=== PATIENT | male | born 1990 | race Caucasian/White ===

== ENCOUNTER 2019-12-15 17:46 | Emergency (ER) | payer SELFPAY ==
[2019-12-15 18:09] VITALS: BP 136/96; PULSE 112; RESP 16; TEMP 37.5; O2SAT 97; BMI 28.7
--- NOTE | 2019-12-15 19:53 | ED.NAVMDI ---
HPI - Nausea/Vomiting/Diarrhea General Chief complaint: Nausea/Vomiting/Diarrhea Stated complaint: vomiting Time Seen by Provider: 12/15/19 19:49 Source: patient Mode of arrival: ambulatory Limitations: no limitations History of Present Illness HPI Narrative: 29 old male presents with nausea, vomiting, tremors, alcohol abuse, and heroin withdrawal. He states that he does not want detox at this time as he is unable to leave his job. he reports abdominal pain because he has been vomiting for several days, and feels as if he is withdrawing from alcohol at this time. He last used heroin just prior to arrival and has been using multiple bags per injection. he does not describe any chest pain or pressure, palpitations, abdominal distention, dysuria, hematuria, fevers, chills, suicidal ideation, homicidal ideation, and auditory visual hallucinations. MD elicited complaint: nausea and vomiting Pertinent past history: alcohol abuse Onset (ago): day(s) (3) Description of vomiting: watery and bilious Associated nausea: Yes Associated abdominal pain: No Severity: moderate Pain scale (0-10): 8 Related Data Previous Rx's Medication Instructions Recorded chlordiazepoxide HCl 25 mg PO Q8H PRN #7 cap 12/15/19 Allergies Allergy/AdvReac Type Severity Reaction Status Date / Time No Known Allergies Allergy Verified 12/15/19 18:13 [No Known Allergies*] Review of Systems Review of Systems: Constitutional: No Weight loss, No Fever, No Chills, No Night Sweats, No Fatigue, No Malaise ENT/Mouth: No Hearing loss, No Ear Pain, No Nasal Congestion, No Sinus Pain, No Hoarseness, No sore throat, No Rhinorrhea, No Swallowing Difficulty Eyes: No Eye Pain, No Swelling, No Redness, No Foreign Body, No Discharge, No Vision Changes Cardiovascular: No Chest Pain, No SOB, No Dyspnea on Exertion, No Orthopnea, No Edema, No Palpitations Respiratory: No Cough, No Sputum, No Wheezing, No Smoke Exposure, No Dyspnea Gastrointestinal: Positive Nausea, Positive Vomiting, positive Diarrhea, positive abdominal Pain, No Hematochezia, No Melena Genitourinary: no irregular bleeding, No Dysuria, No Urinary Frequency, No Hematuria, No Urinary Incontinence, No Urgency, No Flank Pain, No Urinary Flow Changes, No Hesitancy Musculoskeletal: No joint pain, No Myalgias, No Joint Swelling Skin: No Skin Lesions, No rash Neuro: No Weakness, No Numbness, No Paresthesias, No Loss of Consciousness, No Dizziness, No Headache Psych: No Anxiety/Panic, No Depression, No SI/HI/AH/VH, No Social Issues Heme/Lymph: No Bruising, No Bleeding,No Lymphadenopathy Endocrine: No Polyuria, No Polydipsia, No Temperature Intolerance Yes all other systems are reviewed and are negative Gastrointestinal: Gastrointestinal: Reports nausea PMFSH Past Medical History Attestation statement: The following information was validated with the patient. Medical History ETOH abuse Social History Social History Alcohol intake: current Alcohol intake frequency: 3 or more drinks per day Alcohol type: beer and hard liquor Smoking Status: Current some day smoker Use of substances other than those prescribed or required for medical reasons: No Substance Use Type: Heroin Substance Use Frequency: Weekly Last Used Substance: Days (ago) Advance Directives: No Advance Directives Information Provided: Yes Physical Exam Vital Signs: Vital Signs: Vital Signs Temp Pulse Resp BP Pulse Ox 12/15/19 21:47 97.4 F 76 18 109/61 97 12/15/19 18:09 99.5 F 112 H 16 136/96 H 97 Body Mass Index 28.7 Appearance: Alert. Oriented X3. Mild distress, tremorous hands. Head: Normal external exam. Normocephalic. Atraumatic. No Dorman signs noted. No raccoon eyes noted Eyes: PERRLA. EOMI. Conjunctiva and sclera normal. Eyelids normal. ENT: TM's Normal. Pharynx normal. Uvula midline. Moist mucous membranes. No trismus noted. No drooling noted. No muffled voice noted. Neck: Normal inspection. Neck supple. No adenopathy. Thyroid Normal. No meningeal signs. No neck mass noted. CVS: tachycardic, regular rhythm, Heart sound normal. No murmurs noted. Pulses equal to all extremities. Respiratory: No respiratory distress. Painless inspiration. Breath sounds normal. No wheezes/rales/rhonchi noted. Chest nontender. No accessory muscle usage noted or decreased air movement noted. Abdomen: Soft and nontender. Bowel sounds normal in all 4 quadrants. No distention noted. No organomegaly noted. No visible injury noted. Back: No CVA tenderness. Full range of motion noted. Skin: Skin warm and dry. Normal skin color. Normal skin turgor. No rashes/lesions/lacerations noted. Extremities: No lower extremity edema. Extremities exhibit normal range of motion. Extremities nontender. Neuro: cranial nerves 2-12 intact, no focal neural deficits, strength 5/5 to all extremities, No motor deficit. No sensory deficit. Reflexes normal. Course Course Course Narrative: plan is to treat for acute withdrawal symptoms with fluids, Ativan, Reglan and Benadryl. As patient is not interested in detox at this time and is not willing to stay for complete alcohol detox, we will provide supportive measures and have debt recovery officer speak with the patient so he can have information when he is ready for detox. Patient does agree with this plan. Reevaluation(s) Reevaluation #1: Patient's vital signs are stable, no longer tachycardic heart rate 76, no longer tremors to the hands. He will reach out to recovery program when he is ready. Patient will be discharged home. Patient verbalized understanding of and agrees to plan of care discharge home. He does understand that he is welcome to return at any time for full detox. Time: 21:16 MDM - Nausea/Vomiting/Diarrhea MDM Narrative Medical decision making narrative: Alcohol withdrawal, opioid withdrawal Differential Diagnosis Differential diagnosis: Likely gastroenteritis, drug-induced nausea and vomiting and dehydration Medical Records Attestation: I reviewed the patient's medical records. Lab Data Attestation: I reviewed the patient's lab results. Result diagrams: 12/15/19 20:22 12/15/19 20:22 Labs: Lab Results 12/15/19 12/15/19 12/15/19 Range/Units 20:22 20:22 20:22 WBC 4.2 L (4.8-10.8) X10*3/uL RBC 4.39 L (4.60-5.80) X10*6/uL Hgb 13.4 L (14.0-18.0) g/dl Hct 39.5 L (42-52) % MCV 90.0 (80-98) fL MCH 30.5 (27.0-33.0) pg MCHC 33.9 (31.0-36.0) g/dl RDW 13.2 (11.0-16.0) % Plt Count 178 (160-400) X10*3/uL MPV 9.1 L (9.4-12.4) fL Immature Gran % (Auto) 0.5 H (0.0-0.4) % Neut % (Auto) 57.7 (45-73) % Lymph % (Auto) 28.4 (20-40) % [place] % (Auto) 11.5 H (2-11) % Eos % (Auto) 1.4 (0-4) % Baso % (Auto) 0.5 (0-2) % Lymph # (Auto) 1.2 (1.2-4.9) X10*3/uL [place] # (Auto) 0.5 (0.1-1.2) X10*3/uL Eos # (Auto) 0.1 (0.0-0.4) X10*3/uL Baso # (Auto) 0.0 (0.0-0.2) X10*3/uL Abs Immat Gran (auto) 0.02 (0.00-0.03) X10*3/uL Absolute Neuts (auto) 2.4 (2.0-8.3) X10*3/uL Absolute Nucleated RBC 0.000 (0.0-0.012) X10*3/uL Nucleated RBC % (auto) 0.0 (0.0-0.2) /100WBC Sodium 136 (135-145) mmol/L Potassium 4.6 (3.3-5.1) mmol/l Chloride 97 (96-108) mmol/L Carbon Dioxide 32 H (22-29) mmol/L Anion Gap 12 (12-20) BUN 8 L (9-16) mg/dL Creatinine 0.82 (0.5-1.4) mg/dL Estim Creat Clear Calc 172.2 Estimated GFR > 60 Random Glucose 92 (60-115) mg/dL Calcium 8.8 (8.4-10.2) mg/dL Ethyl Alcohol < 10 mg/dL Discharge Plan Discharge Clinical Impression: Withdrawal from opioids, Alcohol abuse Patient Disposition: Home, Self-Care Instructions: Opioid Withdrawal (ED) Additional Instructions: please consider detox. Thank you for choosing this emergency department for evaluation. Please follow-up with primary care physician as needed. Return to the emergency department for any new, concerning, or worsening symptoms. Prescriptions: New chlordiazepoxide HCl 25 mg capsule 25 mg PO Q8H PRN (Reason: alcohol withdrawal) Qty: 7 RF: 0 Interventions: ED Discharge Assessment Last Done: 12/15/19 21:44 Discharge Date/Time: 12/15/19 22:00
[2019-12-15] MEDS: 0.9 % Sodium Chloride 1,000 ML 999 ML IVCONT (20:24)
[2019-12-15] MEDS: Metoclopramide HCl 10 MG/2 ML VIAL IVPUSH (20:25)
[2019-12-15 20:27] LABS: MANUAL DIFF FLAG NO
[2019-12-15] MEDS: Famotidine/PF 20 MG/2 ML VIAL IVPUSH (20:27)
[2019-12-15] MEDS: diphenhydrAMINE HCL 50 MG/ML VIAL IVPUSH (20:28)
[2019-12-15] MEDS: LORazepam 1 MG TABLET PO (20:29)
--- NOTE | 2019-12-15 20:31 | PC.NURSE ---
LAB AND IV LINED. MEDICATED PER APR. PT RESTING IN BED WATCHING A SHOW ON CELL PHONE. NO SOB OR CHEST PAIN. NO SIGN OF DISTRESS AT THIS TIME.
[2019-12-15 20:34] LABS: Basophils Percent Auto 0.5 % (0-2); Eosinophils Absolute Auto 0.1 X10*3/uL (0.0-0.4); Eosinophils Percent Auto 1.4 % (0-4); Hematocrit 39.5 % (42-52); Hemoglobin 13.4 g/dl (14.0-18.0); Imm Gran Abs Auto 0.02 X10*3/uL (0.00-0.03); Imm Gran Pct Auto 0.5 % (0.0-0.4); Lymphocytes Absolute Auto 1.2 X10*3/uL (1.2-4.9); Lymphocytes Percent Auto 28.4 % (20-40); Mean Corpuscular HGB Conc 33.9 g/dl (31.0-36.0); Mean Corpuscular Hemoglobin 30.5 pg (27.0-33.0); Mean Platelet Volume 9.1 fL (9.4-12.4); Monocytes Absolute Auto 0.5 X10*3/uL (0.1-1.2); Monocytes Percent Auto 11.5 % (2-11); Neutrophils Absolute Auto 2.4 X10*3/uL (2.0-8.3); Neutrophils Percent Auto 57.7 % (45-73); Platelet Count 178 X10*3/uL (160-400); Red Blood Count 4.39 X10*6/uL (4.60-5.80); Red Cell Distribution Width 13.2 % (11.0-16.0); White Blood Count 4.2 X10*3/uL (4.8-10.8)
[2019-12-15 20:57] LABS: Ethanol < 10 mg/dL
[2019-12-15 21:00] LABS: Anion Gap 12 (12-20); Blood Urea Nitrogen 8 mg/dL (9-16); Calcium 8.8 mg/dL (8.4-10.2); Carbon Dioxide 32 mmol/L (22-29); Chloride 97 mmol/L (96-108); Creatinine Clr Calc Pharmacy 172.2; Estimated Glomerular Filt Rate > 60; Glucose Random 92 mg/dL (60-115); Potassium 4.6 mmol/l (3.3-5.1); Sodium 136 mmol/L (135-145)
[2019-12-15 21:47] VITALS: BP 109/61; PULSE 76; RESP 18; TEMP 36.3; O2SAT 97
== END 2019-12-15 22:00 | disposition home or self-care (01) ==
PROVIDERS: Nurse Practitioner Family; Emergency Provider Emergency Medicine; PCP Internal Medicine
DX: F11.23 Opioid dependence with withdrawal (principal); F10.10 Alcohol abuse, uncomplicated; Y90.0 Blood alcohol level of less than 20 mg/100 ml; R11.2 Nausea with vomiting, unspecified; F17.200 Nicotine dependence, unspecified, uncomplicated
CPT/HCPCS: 36415; 80048; 80320; 85025; 96361; 96374; 96375; 99284; J1200; J2765

== ENCOUNTER 2020-05-01 20:22 | Emergency (ER) | payer OTHER, SELFPAY ==
[2020-05-01 20:29] VITALS: BP 122/98; BP 129/71; PULSE 106; PULSE 110; RESP 16; O2SAT 94; O2SAT 98; BMI 29.2
[2020-05-01 20:35] VITALS: BP 141/87; PULSE 120; RESP 16; TEMP 36.7; O2SAT 94
--- NOTE | 2020-05-01 21:04 | ED_ITS ---
HPI - Alcohol General Chief Complaint: ETOH/Substance Use Stated Complaint: etoh Time Seen by Provider: 05/01/20 21:05 Source: patient and EMS Mode of arrival: EMS Limitations: no limitations History of Present Illness HPI narrative: 29 yo male with ETOH abuse here after being seen walking told to come to ED for ETOH, denies SI, denies desire for detox, plans to call sober ride to get him complaint: alcohol intoxication Last drink: Hours (ago) (6) Chronic alcohol use: Yes Previous visits for alcohol intoxication: Yes Recent trauma: No Associated symptoms: denies other symptoms Treatments prior to arrival: none Related Data Previous Rx's Medication Instructions Recorded chlordiazepoxide HCl 25 mg PO Q8H PRN #7 cap 12/15/19 Allergies Allergy/AdvReac Type Severity Reaction Status Date / Time No Known Allergies Allergy Verified 12/15/19 18:13 [No Known Allergies*] Review of Systems 2 Review of Systems: Constitutional : No Fever, No Chills ENT/Mouth : No Ear Pain, No Nasal Congestion, No sore throat Eyes: No Eye Pain, No Swelling, No Redness Cardiovascular : No Chest Pain, No SOB Respiratory : No Cough, No Sputum, No Dyspnea Gastrointestinal : No Nausea, No Vomiting, No Diarrhea, No Hematochezia, No Melena Genitourinary : No Dysuria, No Urinary Frequency, No Hematuria Musculoskeletal : No Myalgias Skin : No Skin Lesions, No rash Neuro : No Weakness, No Numbness, No Paresthesias, No Dizziness, No Headache Psych : no Anxiety, positive Depression, no SI/HI PMFSH Past Medical History Attestation statement: The following information was validated with the patient. Medical History ETOH abuse Social History Social History Alcohol intake: current Alcohol intake frequency: 3 or more drinks per day Alcohol type: beer and hard liquor Smoking Status: Current some day smoker Substance Use Type: Heroin Advance Directives: No Advance Directives Information Provided: Yes Physical Exam Vital Signs: Vital Signs: Last Vital Signs Pulse 106 H 05/01/20 20:29 Resp 16 05/01/20 20:29 BP 129/71 05/01/20 20:29 Pulse Ox 98 05/01/20 20:29 Body Mass Index 29.2 Appearance: Alert. Oriented X3. No acute distress. Eyes: Pupils equal, round and reactive to light. ENT: Pharynx normal. Neck: Normal inspection. Neck supple. CVS: Normal heart rate and rhythm. Pulses normal. Respiratory: No respiratory distress. Breath sounds normal. Abdomen: Soft and nontender. Skin: Skin warm and dry. Normal skin color. Normal skin turgor. Extremities: No lower extremity edema. No calf ttp Neuro: Oriented X 3. No motor deficit. No sensory deficit. MDM - Alcohol MDM Narrative Medical decision making narrative: 29 yo male ETOH use no SI, does not want detox, he is stable, calling for sober ride, steady gait at this time clinically sober Discharge Plan Discharge Clinical Impression: Alcoholic intoxication Qualifiers: Complication of substance-induced condition: uncomplicated Qualified Code(s): F10.920 - Alcohol use, unspecified with intoxication, uncomplicated Patient Disposition: Home, Self-Care Instructions: Alcohol Intoxication (ED) Additional Instructions: return to ED for any worsening symptoms or concerns Prescriptions: No Action chlordiazepoxide HCl 25 mg capsule 25 mg PO Q8H PRN (Reason: alcohol withdrawal) Qty: 7 RF: 0
== END 2020-05-01 21:34 | disposition home or self-care (01) ==
PROVIDERS: Emergency Provider Emergency Medicine
DX: F10.120 Alcohol abuse with intoxication, uncomplicated (principal); F11.90 Opioid use, unspecified, uncomplicated
CPT/HCPCS: 99284

== ENCOUNTER 2020-07-08 11:21 | Outpatient (REF) | payer OTHER, SELFPAY ==
[2020-07-08 13:59] LABS: Alanine Aminotransferase 24 U/L (0-40); Albumin Level 4.5 g/dL (3.5-5.0); Alkaline Phosphatase 64 U/L (39-117); Anion Gap 11 (12-20); Aspartate Amino Transferase 20 U/L (5-37); Bilirubin Total 0.4 mg/dL (0.0-1.0); Blood Urea Nitrogen 14 mg/dL (9-16); Calcium 9.7 mg/dL (8.4-10.2); Carbon Dioxide 29 mmol/L (22-29); Chloride 102 mmol/L (96-108); Estimated Glomerular Filt Rate > 60; Glucose Random 79 mg/dL (60-115); Potassium 4.9 mmol/L (3.3-5.1); Sodium 137 mmol/L (135-145); Total Protein 7.4 g/dL (6.5-8.0)
[2020-07-11 18:52] LABS: HCV Log PCR 3.43 Log IU/mL (NOT DETECTED); HepC Viral Load 2710 IU/mL (NOT DETECTED)
== END 2020-07-08 11:22 | disposition home or self-care (01) ==
LOC: HO.HMGCLDS 11:21
PROVIDERS: PCP Internal Medicine; Visit Provider Internal Medicine
DX: R76.8 Other specified abnormal immunological findings in serum (principal)
CPT/HCPCS: 36415; 80053; 87522

== ENCOUNTER → 2020-08-08 14:01 | Outpatient (BNVA) | payer OTHER, SELFPAY | PROVIDERS: PCP Internal Medicine; Referring Provider Internal Medicine; Visit Provider Physician Assistant ==

== ENCOUNTER 2020-09-18 09:35 | Outpatient (REF) | payer OTHER, SELFPAY ==
--- NOTE | ~2020-09-18 | US_ITS ---
EXAMINATION: US COMPLETE ABDOMEN WITH LIVER ELASTOGRAPHY CLINICAL INFORMATION: Viral hepatitis C COMPARISON: None. TECHNIQUE: Real-time imaging of the abdominal viscera. Noninvasive ultrasound liver fibrosis assessment is performed using [employer]fn ElastPQ point quantification shear wave elastography (pSWE) with a C5-2 MHz transducer. Multiple elastography samples are obtained. FINDINGS: PANCREAS: Not visualized due to bowel gas ABDOMINAL AORTA: Not well visualized due to bowel gas INFERIOR VENA CAVA: Visualized portions are normal. LIVER: Liver echotexture is increased. The liver demonstrates normal size and contour. No focal lesion or intrahepatic biliary duct dilatation. The right lobe measures 18 cm in length. The left lobe measures 11 cm in length. Portal flow is normal/hepatopedal Shear wave liver elastography median stiffness is 1.4 m/s (reference: normal median stiffness is 1.3 m/s or less). IQR/median stiffness to assess sampling precision is 0.3 (reference: good quality data set is IQR/median stiffness of 0.15 or less). GALLBLADDER: Normal. The gallbladder is physiologically distended without evidence of stones, sludge, polyps, wall thickening or pericholecystic fluid. COMMON BILE DUCT: Normal in caliber measuring 0.3 cm in diameter. RIGHT KIDNEY: Normal. No hydronephrosis. No renal calculi or focal parenchymal lesions. The kidney measures 11 cm in maximum dimension. LEFT KIDNEY: Normal. No hydronephrosis. No renal calculi or focal parenchymal lesions. The kidney measures 11 cm in maximum dimension. SPLEEN: Normal. The spleen measures 12 cm in maximum dimension. FREE FLUID: None. US/US abdomen comp w elastography IMPRESSION: 1. Impression: Echogenic liver probably representing fatty infiltration. Limited visualization of the pancreas and aorta. 2. Liver elastography: Limited due to sampling error. REFERENCE: Society of Radiologists in Ultrasound Liver Stiffness Thresholds (2020): LIVER STIFFNESS THRESHOLDS: *Liver Stiffness equal or less than 1.3 m/s: High probability of being normal. *Liver Stiffness less than 1.7 m/s: In the absence of other known clinical signs, rules out compensated advanced chronic liver disease. *Liver Stiffness 1.7-2.1 m/s: Suggestive of compensated advanced chronic liver disease but need further test for confirmation. *Liver Stiffness over 2.1 m/s: Rules in compensated advanced chronic liver disease. *Liver Stiffness over 2.4 m/s: Suggestive of clinically significant portal hypertension. QUALITY OF DATA SET: *IQR/Median value equal or less than 0.15 implies a quality data set. *IQR/Median value over 0.15 implies a poor quality data set. SIGNIFICANT CHANGE FROM PRIOR EXAM: Significant change if liver stiffness measurement is 10% or greater from prior exam. OTHER CONSIDERATIONS: The stage of liver fibrosis may be overestimated in the setting of acute hepatitis, liver inflammation, elevated liver function tests, hepatic vascular congestion, obstructive cholestasis, non-fasting state, and infiltrative diseases such as amyloidosis and lymphoma. In some patients with NAFLD, the liver stiffness thresholds for compensated advanced chronic liver disease may be lower. In causes other than viral hepatitis and NAFLD, liver stiffness thresholds are not well established.
== END 2020-09-18 09:36 | disposition home or self-care (01) ==
LOC: HO.US 09:35
PROVIDERS: PCP Internal Medicine; Visit Provider Physician Assistant
DX: B19.20 Unspecified viral hepatitis C without hepatic coma (principal)
CPT/HCPCS: 76705; 76981

== ENCOUNTER 2020-09-27 08:02 | Outpatient (REF) | payer OTHER, SELFPAY ==
[2020-09-27 10:35] LABS: MANUAL DIFF FLAG NO
[2020-09-27 10:47] LABS: Basophils Percent Auto 1.2 % (0-2); Eosinophils Percent Auto 1.2 % (0-4); Hematocrit 42.9 % (42-52); Hemoglobin 14.4 g/dl (14.0-18.0); Imm Gran Abs Auto 0.01 X10*3/uL (0.00-0.03); Imm Gran Pct Auto 0.3 % (0.0-0.4); Lymphocytes Absolute Auto 1.3 X10*3/uL (1.2-4.9); Lymphocytes Percent Auto 37.5 % (20-40); Mean Corpuscular HGB Conc 33.6 g/dl (31.0-36.0); Mean Corpuscular Hemoglobin 30.1 pg (27.0-33.0); Mean Corpuscular Volume 89.6 fL (80-98); Mean Platelet Volume 9.4 fL (9.4-12.4); Monocytes Absolute Auto 0.4 X10*3/uL (0.1-1.2); Neutrophils Absolute Auto 1.6 X10*3/uL (2.0-8.3); Neutrophils Percent Auto 48.8 % (45-73); Platelet Count 254 X10*3/uL (160-400); Red Blood Count 4.79 X10*6/uL (4.60-5.80); Red Cell Distribution Width 14.4 % (11.0-16.0); White Blood Count 3.4 X10*3/uL (4.8-10.8)
[2020-09-27 11:16] LABS: HBc Num1 0.26 S/CO (0.00-0.79); HBsAGNum1 0.21 S/CO (0.00-0.99); Hepatitis B Core Antibody Nonreactive (Nonreactive); Hepatitis B Surface Antigen Negative (Negative)
[2020-09-27 11:22] LABS: HBS Num1 > 1000.00 mIU/mL (0-7.99); ~Hepatitis B Surface Antibody REACTIVE (Nonreactive)
[2020-10-03 08:22] LABS: Hepatitis C Genotype 1a
[2020-10-03 16:01] LABS: FIB-ALT 57 U/L (9-46); FIB-Alpha-2-Macroglobulin 167 mg/dL (106-279); FIB-Apolipoprotein A1 176 mg/dL (94-176); FIB-GGT 232 U/L (3-90); FIB-Haptoglobin 267 mg/dL (43-212); FIB-Total Bilirubin 0.5 mg/dL (0.2-1.2); Liver Fibrosis Score 0.12; Liver Fibrosis Stage F0; Nec Inflam Act Grade A0-A1; Nec Inflam Act Score 0.28
== END 2020-09-27 08:03 | disposition home or self-care (01) ==
LOC: HO.LAB 08:02
PROVIDERS: PCP Internal Medicine; Referring Provider Internal Medicine; Visit Provider Physician Assistant
DX: K21.9 Gastro-esophageal reflux disease without esophagitis (principal); B19.20 Unspecified viral hepatitis C without hepatic coma; K76.0 Fatty (change of) liver, not elsewhere classified
CPT/HCPCS: 36415; 81596; 85025; 86704; 86706; 87340; 87902

== ENCOUNTER → 2020-10-04 09:26 | Outpatient (BNVA) | payer OTHER, SELFPAY | PROVIDERS: PCP Internal Medicine; Visit Provider Physician Assistant ==

== ENCOUNTER → 2020-11-16 15:16 | Outpatient (BNVA) | payer OTHER, SELFPAY | PROVIDERS: PCP Internal Medicine; Visit Provider Physician Assistant ==

== ENCOUNTER 2020-12-20 21:16 | Emergency (ER) | payer OTHER, SELFPAY | END 2020-12-20 22:11 | disposition left against medical advice (07) | PROVIDERS: Emergency Provider Emergency Medicine; PCP Internal Medicine | DX: R22.32 Localized swelling, mass and lump, left upper limb (principal) ==

== ENCOUNTER → 2021-03-19 14:50 | Outpatient (BNVA) | payer OTHER, SELFPAY | PROVIDERS: PCP Internal Medicine; Referring Provider Internal Medicine; Visit Provider Physician Assistant ==

== ENCOUNTER 2021-07-09 09:07 | Emergency (ER) | payer OTHER, SELFPAY ==
[2021-07-09 10:26] VITALS: BP 172/100; PULSE 103; RESP 16; O2SAT 97; BMI 33.9
[2021-07-09 14:45] VITALS: BP 179/118; PULSE 107; RESP 18; O2SAT 98
--- NOTE | 2021-07-09 15:02 | ECG_ITS ---
Test Reason : TACHYCARDIA Blood Pressure : / mmHG Vent. Rate : 090 BPM Atrial Rate : 090 BPM P-R Int : 130 ms QRS Dur : 098 ms QT Int : 380 ms P-R-T Axes : 036 022 -48 degrees QTc Int : 464 ms Normal sinus rhythm with sinus arrhythmia Minimal voltage criteria for LVH, may be normal variant ( R in aVL ) Possible Inferior infarct (cited on or before 09-JUL-2021) T wave abnormality, consider anterolateral ischemia Abnormal ECG When compared with ECG of 22-JUN-2018 17:01, T wave inversion now evident in Anterior leads Referred By: Aleena Rutherford Electronically Signed By:SILVIA WEISS
[2021-07-09] MEDS: 0.9 % Sodium Chloride 1,000 ML 999 ML IV (15:37)
[2021-07-09] MEDS: ondansetron HCL 4 MG/2 ML VIAL IVPUSH (15:42)
--- NOTE | 2021-07-09 16:05 | ED.ALCOHOL ---
HPI - Alcohol General Chief Complaint: Nausea/Vomiting/Diarrhea Stated Complaint: vomiting , weak, body shaking Time Seen by Provider: 07/09/21 15:00 Source: patient Mode of arrival: ambulatory Limitations: no limitations History of Present Illness HPI narrative: Patient presents to the emergency department for assistance with alcoholism requesting detox. States he last drank at 0000, baseline he drinks 20-30 minutes of alcohol daily. He reports that he is feeling weak, tremulous, having nausea and vomiting, feels shaky and anxious. Has a headache and reports the lytes to be bothersome to him. States that he has gone are with trial a past, denies any history of withdrawal seizures. States that 2 months ago he completed detox at [facility], however once he left he was still feeling really shaky and he began drinking again. Related Data Home Medications Medication Instructions Recorded Confirmed trazodone 100 mg tablet [id number] mg PO BEDTIME PRN 07/18/20 11/16/20 methadone 10 mg/mL oral concentrate 100 mg PO DAILY ml 08/08/20 03/19/21 gabapentin 300 mg capsule 300 mg PO TID 09/27/20 03/19/21 ibuprofen 600 mg tablet 600 mg PO BID PRN 09/27/20 03/19/21 sertraline 50 mg tablet 50 mg PO DAILY 09/27/20 11/16/20 Previous Rx's Medication Instructions Recorded pantoprazole 40 mg tablet,delayed 40 mg PO DAILY 90 Days #90 tab 10/12/20 release chlordiazepoxide HCl 25 mg capsule 25 mg PO Q8H PRN #9 cap 07/09/21 Allergies Allergy/AdvReac Type Severity Reaction Status Date / Time fluoxetine [From Prozac] Allergy Severe rash Verified 03/19/21 14:59 Review of Systems Review of Systems: Constitutional: No weight loss. No fever. Positive chills. Positive weakness. No fatigue. Eye: No swelling. No redness. ENT: No sore throat. No rhinorrhea. No nasal congestion. No sore throat. No difficulty swallowing. Skin: No rash. No itching. Cardiovascular: No chest pain. No chest pressure. No palpitations. No pedal edema. Respiratory: No shortness of breath. No cough. No sputum production. Gastrointestinal: Positive anorexia. Positive nausea. Positive vomiting. No diarrhea. No abdominal pain. No blood in stool. Genitourinary: No burning micturition. No urinary frequency. No incontinence. Neurologic: Positive headache. No dizziness. No pre-syncope/ syncope. No ataxia. No numbness. No tingling. Musculoskeletal: No muscle pain. No back pain. No joint pain. No stiffness. Hematologic: No bleeding. No bruising. Psychiatric:No depression. Positive anxiety. Endocrine: No polyuria. No polydipsia. Yes all other systems are reviewed and are negative PMFSH Past Medical History Attestation statement: The following information was validated with the patient. Source: old records reviewed Medical History ETOH abuse History of cocaine abuse Social History Social History Household Members: Family Alcohol intake: current Alcohol intake frequency: a few times a week Alcohol type: beer and hard liquor Patient Tobacco Use Status: Never used Tobacco Substance Use Type: Heroin Advance Directives: No Advance Directives Information Provided: No Current occupational status: unemployed Physical Exam ED Vital Signs: Vital Signs - 24 hr 07/09/21 10:26 07/09/21 14:45 07/09/21 18:07 Temperature 97.6 F Pulse Rate 103 H 107 H 98 Respiratory Rate 16 18 18 Blood Pressure 172/100 H 179/118 H 141/89 H Pulse Oximetry 97 98 97 BMI result Body Mass Index 33.9 Vital signs have been reviewed and appeared to be correct. Hypertension.? Tachycardia? Respiration rate normal. Temperature normal, 97.9.? Oxygen saturation normal. Appearance: Alert.?Oriented to person, place and time. No acute distress.? Appears anxious Eyes: Pupils equal, round and reactive to light.? ENT: Pharynx normal.?? Neck: Normal inspection.? Neck supple.?? CVS: Heart sounds normal. Tachycardia.? Pulses normal.?? Respiratory: No respiratory distress.? Lung sounds clear to auscultation bilaterally?? Abdomen: Soft and non-tender. Normoactive bowel sounds. ?? Skin: Skin warm and dry.? Normal skin color.? Normal skin turgor.?? Extremities: No lower extremity edema.? No calf ttp? Neuro: Moves all extremities spontaneously. Sensation intact bilaterally. CN II-XII intact. No focal neuro deficits. Ambulates with normal steady gait. Tremors of the bilateral upper extremities Course Course Course Narrative: Patient is a 30-year-old male with a past medical history of alcohol abuse presenting to the emergency department with symptoms of withdrawal in requesting assistance with detox. Initial CIWA scale of 16, patient received normal saline 1 L IV fluid, Zofran 4 mg IV, lorazepam 2 mg IV, will obtain CBC, CMP, troponin, EKG, ethanol, drug abuse screen, urinalysis, COVID-19 and influenza testing. Reevaluation(s) Reevaluation #1: CBC is overall unremarkable. BMP is normal. AST and ALT are elevated 95/102 respectively, total bilirubin 1.6, likely secondary to alcoholism. Troponin <3.5, EKG reveals normal sinus rhythm with LVH, no ST elevation, ST depression, T-wave inversions consistent with prior EKG in May 2018, no active chest pain. COVID-19 and influenza testing are negative Time: 17:05 Reevaluation #2: Patient reports feeling better after receiving lorazepam, IV fluids, and Zofran. Current CIWA 6. Vital signs are stable. Patient waiting to meet with care team at this time to evaluate for possible detox beds. Time: 18:08 Reevaluation #3: Patient met with care team, referrals have been sent out for assistance with ETOH detox at [facility], patient needs to call tomorrow morning, intake was faxed. Discussed plan of care with patient, patient would like to be discharged today with Librium. Discussed reasons that he should return back to the emergency department, all questions have been answered, patient is currently hemodynamically stable, not consistent with delirium tremens, or prior withdrawal seizure history. CIWA consistent with mild withdrawal. Time: 18:43 [facility] - Alcohol Medical Records Attestation: I reviewed the patient's medical records. Lab Data Attestation: I reviewed the patient's lab results. Result diagrams: 07/09/21 16:13 07/09/21 16:13 Labs: Lab Results 07/09/21 07/09/21 07/09/21 Range/Units 15:33 15:33 16:13 WBC 8.4 (4.8-10.8) X10*3/uL RBC 4.66 (4.60-5.80) X10*6/uL Hgb 15.0 (14.0-18.0) g/dl Hct 44.3 (42.0-52.0) % MCV 95.1 (80.0-98.0) fL MCH 32.2 (27.0-33.0) pg MCHC 33.9 (31.0-36.0) g/dl RDW 14.3 (11.0-16.0) % Plt Count 269 (160-400) X10*3/uL MPV 9.3 L (9.4-12.4) fL Immature Gran % (Auto) 0.7 H (0.0-0.4) % Neut % (Auto) 75.5 H (45-73) % Lymph % (Auto) 15.8 L (20-40) % [place] % (Auto) 7.3 (2-11) % Eos % (Auto) 0.0 (0-4) % Baso % (Auto) 0.7 (0-2) % Lymph # (Auto) 1.3 (1.2-4.9) X10*3/uL [place] # (Auto) 0.6 (0.1-1.2) X10*3/uL Eos # (Auto) 0.0 (0.0-0.4) X10*3/uL Baso # (Auto) 0.1 (0.0-0.2) X10*3/uL Abs Immat Gran (auto) 0.06 H (0.00-0.03) X10*3/uL Absolute Neuts (auto) 6.3 (2.0-8.3) x10*3/uL Absolute Nucleated RBC 0.000 (0.0-0.012) X10*3/uL Nucleated RBC % (auto) 0.0 (0.0-0.2) /100WBC Sodium (135-145) mmol/L Potassium (3.3-5.1) mmol/L Chloride (96-108) mmol/L Carbon Dioxide (22-29) mmol/L Anion Gap (12-20) BUN (9-16) mg/dL Creatinine (0.5-1.4) mg/dL Estim Creat Clear Calc Estimated GFR Random Glucose (60-115) mg/dL Calcium (8.4-10.2) mg/dL Magnesium (1.6-2.6) mg/dL Total Bilirubin (0.0-1.0) mg/dL AST (5-37) U/L ALT (0-40) U/L Alkaline Phosphatase (39-117) U/L Troponin I High Sens (<3.5-35.0) ng/L Total Protein (6.5-8.0) g/dL Albumin (3.5-5.0) g/dL Ethyl Alcohol mg/dL COVID-19 (MACIE) Negative (Negative) COVID-19 Clin Com See Note Influenza Type A (VEDA) Negative (Negative) Influenza Type B (VEDA) Negative (Negative) Influenza A & B Note See Note 07/09/21 07/09/21 07/09/21 Range/Units 16:13 16:13 16:13 WBC (4.8-10.8) X10*3/uL RBC (4.60-5.80) X10*6/uL Hgb (14.0-18.0) g/dl Hct (42.0-52.0) % MCV (80.0-98.0) fL MCH (27.0-33.0) pg MCHC (31.0-36.0) g/dl RDW (11.0-16.0) % Plt Count (160-400) X10*3/uL MPV (9.4-12.4) fL Immature Gran % (Auto) (0.0-0.4) % Neut % (Auto) (45-73) % Lymph % (Auto) (20-40) % [place] % (Auto) (2-11) % Eos % (Auto) (0-4) % Baso % (Auto) (0-2) % Lymph # (Auto) (1.2-4.9) X10*3/uL [place] # (Auto) (0.1-1.2) X10*3/uL Eos # (Auto) (0.0-0.4) X10*3/uL Baso # (Auto) (0.0-0.2) X10*3/uL Abs Immat Gran (auto) (0.00-0.03) X10*3/uL Absolute Neuts (auto) (2.0-8.3) x10*3/uL Absolute Nucleated RBC (0.0-0.012) X10*3/uL Nucleated RBC % (auto) (0.0-0.2) /100WBC Sodium 134 L (135-145) mmol/L Potassium 4.1 (3.3-5.1) mmol/L Chloride 98 (96-108) mmol/L Carbon Dioxide 27 (22-29) mmol/L Anion Gap 13 (12-20) BUN 12 (9-16) mg/dL Creatinine 0.85 (0.5-1.4) mg/dL Estim Creat Clear Calc 163.7 Estimated GFR > 60 Random Glucose 112 D (60-115) mg/dL Calcium 9.8 (8.4-10.2) mg/dL Magnesium 1.9 (1.6-2.6) mg/dL Total Bilirubin 1.6 H (0.0-1.0) mg/dL AST 95 H (5-37) U/L ALT 102 H (0-40) U/L Alkaline Phosphatase 102 D (39-117) U/L Troponin I High Sens < 3.5 (<3.5-35.0) ng/L Total Protein 7.9 (6.5-8.0) g/dL Albumin 4.2 (3.5-5.0) g/dL Ethyl Alcohol < 10 mg/dL COVID-19 (MACIE) (Negative) COVID-19 Clin Com Influenza Type A (VEDA) (Negative) Influenza Type B (VEDA) (Negative) Influenza A & B Note ECG Data ECG #1: Attestation: I personally reviewed and interpreted this ECG as follows: ECG interpretation date: 07/09/21 ECG interpretation time: 16:30 Prior ECG tracings: available for review Interpretation: Rate: 90 Rhythm:? Normal sinus rhythm, LVH [place]:? Normal Normal P waves.? Normal MARY.?? Normal QRS complex.?? ST T wave :??No ST elevation, no ST depression, T-wave inversions consistent with prior EKG of 2019 qTC: 464 prior studies:? February 2018 The study has been interpreted contemporaneously by me. Discharge Plan Discharge Clinical Impression: Alcohol abuse Patient Disposition: Home, Self-Care Instructions: Alcohol Withdrawal (ED), Alcohol Use Disorder (ED) Additional Instructions: Take Librium as needed for withdrawal symptoms every 8 hours. Return to the emergency department with any new or worsening symptoms or concerns. Referrals have been placed for you to go to detox at [facility], please contact them first thing tomorrow morning. Prescriptions: New chlordiazepoxide HCl 25 mg capsule 25 mg PO Q8H PRN (Reason: alcohol withdrawal) Qty: 9 0RF No Action pantoprazole 40 mg tablet,delayed release (DR/EC) 40 mg PO DAILY 90 Days Qty: 90 0RF trazodone 100 mg tablet [id number] mg PO BEDTIME PRN0RF methadone 10 mg/mL concentrate 100 mg PO DAILY 0RF sertraline 50 mg tablet 50 mg PO DAILY 0RF gabapentin 300 mg capsule 300 mg PO TID 0RF ibuprofen 600 mg tablet 600 mg PO BID PRN (Reason: pain) 0RF Referrals: [facility] [Primary Care Provider] - 1 week
[2021-07-09 16:20] LABS: MANUAL DIFF FLAG NO
[2021-07-09] MEDS: LORazepam 2 MG/ML VIAL IVPUSH (16:20)
[2021-07-09 16:24] LABS: Basophils Absolute Auto 0.1 X10*3/uL (0.0-0.2); Basophils Percent Auto 0.7 % (0-2); Hematocrit 44.3 % (42.0-52.0); Imm Gran Abs Auto 0.06 X10*3/uL (0.00-0.03); Imm Gran Pct Auto 0.7 % (0.0-0.4); Lymphocytes Absolute Auto 1.3 X10*3/uL (1.2-4.9); Lymphocytes Percent Auto 15.8 % (20-40); Mean Corpuscular HGB Conc 33.9 g/dl (31.0-36.0); Mean Corpuscular Hemoglobin 32.2 pg (27.0-33.0); Mean Corpuscular Volume 95.1 fL (80.0-98.0); Mean Platelet Volume 9.3 fL (9.4-12.4); Monocytes Absolute Auto 0.6 X10*3/uL (0.1-1.2); Monocytes Percent Auto 7.3 % (2-11); Neutrophils Absolute Auto 6.3 x10*3/uL (2.0-8.3); Neutrophils Percent Auto 75.5 % (45-73); Platelet Count 269 X10*3/uL (160-400); Red Blood Count 4.66 X10*6/uL (4.60-5.80); Red Cell Distribution Width 14.3 % (11.0-16.0); White Blood Count 8.4 X10*3/uL (4.8-10.8)
[2021-07-09 16:35] LABS: Ethanol < 10 mg/dL
[2021-07-09 16:42] LABS: Alanine Aminotransferase 102 U/L (0-40); Albumin Level 4.2 g/dL (3.5-5.0); Alkaline Phosphatase 102 U/L (39-117); Anion Gap 13 (12-20); Aspartate Amino Transferase 95 U/L (5-37); Bilirubin Total 1.6 mg/dL (0.0-1.0); Blood Urea Nitrogen 12 mg/dL (9-16); Calcium 9.8 mg/dL (8.4-10.2); Carbon Dioxide 27 mmol/L (22-29); Chloride 98 mmol/L (96-108); Creatinine Clr Calc Pharmacy 163.7; Estimated Glomerular Filt Rate > 60; Glucose Random 112 mg/dL (60-115); Magnesium 1.9 mg/dL (1.6-2.6); Potassium 4.1 mmol/L (3.3-5.1); Sodium 134 mmol/L (135-145); Total Protein 7.9 g/dL (6.5-8.0); Troponin-I High Sensitivity < 3.5 ng/L (<3.5-35.0)
[2021-07-09 16:54] LABS: COVID-19 Test Negative (Negative); IDNOW Serial# 55D5AD1C; Influenza A Negative (Negative); Influenza B2 Negative (Negative)
[2021-07-09 18:07] VITALS: BP 141/89; PULSE 98; RESP 18; TEMP 36.4; O2SAT 97
--- NOTE | 2021-07-09 18:50 | MHC.RECOVSUP ---
? Reason for consult:Recovery Support o Current location: [facility]? o Identified substance use concern:Alcohol ? - Withdrawal - Seeking ATS (detox) - Support ? ?Intervention: o ATS bed search started/completed/in process o Community resources provided (Kait Hopper) o Harm reduction discussion ? Plan: o Bed search in progress to Rosi Oliver o Follow up tomorrow ? ? Additional information:?I was able to have a consult with [facility]ena before point of contact. Cristofer is a 30 year old male, with Alcohol Use Disorder and experiencing withdrawals from consuming 30-40 nips of alcohol per day in the last few months. Patient states he is interested in local detox, has [employer] insurance with a two thousand dollar deductible. Cristofer did disclose that he needs to switch his insurance plan due to his current status of being unemployed. A referral packet was faxed to [facility] and community resources were provided to patient. Cristofer was encouraged to call [facility] this evening to complete a phone intake at 7:30pm for a possible bed tomorrow.
== END 2021-07-09 19:25 | disposition home or self-care (01) ==
PROVIDERS: Nurse Practitioner Family; Emergency Provider Emergency Medicine
DX: F10.239 Alcohol dependence with withdrawal, unspecified (principal); R11.2 Nausea with vomiting, unspecified; F11.90 Opioid use, unspecified, uncomplicated; F41.9 Anxiety disorder, unspecified; Y90.0 Blood alcohol level of less than 20 mg/100 ml; Z71.41 Alcohol abuse counseling and surveillance of alcoholic; Z20.822 Contact with and (suspected) exposure to COVID-19; Z79.899 Other long term (current) drug therapy
CPT/HCPCS: 36415; 80053; 82077; 83735; 84484; 85025; 87502; 87635; 93005; 96361; 96374; 96375; 99284; J2060; J2405

== ENCOUNTER 2021-10-19 10:10 | Emergency (ER) | payer OTHER, SELFPAY ==
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
[2021-10-19 10:17] VITALS: BP 152/94; PULSE 108; O2SAT 97
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
[2021-10-19 10:35] VITALS: BP 140/80; PULSE 100; RESP 16; TEMP 36.3; O2SAT 97; BMI 33.7
[2021-10-19] MEDS: Acetaminophen 325 MG TABLET 975 MG PO (12:07)
== END 2021-10-19 12:20 | disposition home or self-care (01) ==
PROVIDERS: Emergency Provider Emergency Medicine
DX: S40.012A Contusion of left shoulder, initial encounter (principal); S09.90XA Unspecified injury of head, initial encounter; R51.9 Headache, unspecified; M25.512 Pain in left shoulder; V47.5XXA Car driver injured in collision with fixed or stationary object in traffic accident, initial encounter; Y93.9 Activity, unspecified; Y92.410 Unspecified street and highway as the place of occurrence of the external cause; Y99.9 Unspecified external cause status; Z79.899 Other long term (current) drug therapy
CPT/HCPCS: 73030; 99283

== ENCOUNTER 2022-09-16 05:43 | Inpatient (IN) | payer MEDICAID, SELFPAY ==
[2022-09-16 05:44] VITALS: BP 151/115; PULSE 138; RESP 22; TEMP 36.4; O2SAT 100; BMI 31.2
--- OUTSIDE RECORDS SUMMARY | 2022-09-16 06:11 | XMS_ITS | Continuity of Care Document ---
Author Name Unknown Organization [facility] ter Address [address] [place] [id number] Care Team Providers Care Correctional Substance Abuse Counselor Name Role Phone Tulio MIR, Asma Primary Care Physician Encounter [facility] Date(s): 09/01/20 - 09/01/[address] [id number]- Encounter Diagnosis Alcohol abuse(Final) - 09/01/20 Crack cocaine use(Final) - 09/01/20 Opiate use(Final) - 09/01/20 Crack cocaine use(Final) - 09/01/20 Alcohol abuse(Final) - 09/01/20 Opiate use(Final) - 09/01/20 Discharge Disposition: A-D/C Home Attending Physician: Deja Amador MD Admitting Physician: Deja Amador MD Referring Physician: Not on Staff, Referring MD Allergies, Adverse Reactions, Alerts Substance Reaction Severity Status NKA Active Immunizations Given and Recorded Vaccine Date Status Refusal Reason SARS-CoV-2 (COVID-19) Ad26 vaccine 09/01/20 Given Medications folic acid 1 mg oral tablet 1 mg, By Mouth, Daily, # 30 tablet, Refills 0, Tot. Refills 0, Maintenance, 08/16/18 12:51:04 EDT, Print Requisition Start Date: 08/16/18 Stop Date: 09/15/18 Status: Ordered Methadone By Mouth, 0 Refills, Maintenance, 09/01/20 1:35:00 EDT, Partial fill upon patient request if the prescription is for a schedule II opioid drug. Start Date: 09/01/20 Status: Ordered Methadone Liquid 100 mg, Solution, By Mouth, Once, STAT, 09/01/20 9:47:00 EDT, Stop date 09/01/20 9:47:00 EDT Start Date: 09/01/20 Stop Date: 09/01/20 Status: Completed multivitamin Vitamin B Complex with C oral tablet 1 tablet, By Mouth, Daily, # 30 tablet, 0 Refills, Maintenance, 08/16/18 12:51:14 EDT, Capsule Start Date: 08/16/18 Status: Ordered pyridoxine 50 mg oral tablet 50 mg, By Mouth, Daily, # 30 tablet, Refills 0, Tot. Refills 0, Maintenance, 08/16/18 12:51:21 EDT,Print Requisition Start Date: 08/16/18 Status: Ordered thiamine 100 mg oral tablet 100 mg, By Mouth, 2 times a day, # 30 tablet, Refills 0, Tot. Refills 0, Maintenance, 08/16/18 12:51:24 EDT, Print Requisition Start Date: 08/16/18 Status: Ordered Problem List Condition Effective Dates Status Health Status Inform ant Alcohol abuse(Confirmed) Active Alcohol dependence(Confirmed) Active Results Radiology Reports * Exam Date Time Procedure Performing Provider Status 09/01/20 8:48 AM Chest 2 Views Frontal and Lat Omero Coleman; Auth (Verified) Notes: (Chest 2 Views Frontal and Lat) Reason For Exam: Chest Pain;Other: RESULT: Chest 2 Views Frontal and Lat Chest 2 Views Frontal and Lat Hx of Present Illness: c o not feeling right , palpitations, and n v, etoh use 20-30 nips qd, IVDA 10-20 bags qd, last drink injected 6pm, no fevers, black bloody stools, does endorse vomiting blood yest,; Reason: Other:; Chest Pain; Clinical Question(s): CHF COMPARISON: 08/13/2018 FINDINGS: LINES AND TUBES: None. LUNGS AND PLEURA: Clear lungs. Normal pulmonary vascularity. No pleural effusion. No pneumothorax. HEART, MEDIASTINUM AND DEMETRIUS: Heart is normal in size. Normal upper mediastinal and hilar contour. BONES AND SOFT TISSUES: No acute abnormality. IMPRESSION: No acute abnormality. WSN: [id number] Ordering Physician: Lourdes Nicholson Dictated By: Sunil Collado MD Dictated Date/Time: 09/01/20 8:55 am Reviewed By: Sunil Collado MD Signed By: Sunil Collado MD Signed Date/Time: 09/01/20 8:55 am Transcribed By: CSB Transcribed Date/Time: 09/01/20 8:53 am Vital Signs Most recent to oldest [Reference Range]: 1 2 3 Oxygen Saturation [94-100 %] 97 % (09/01/20 11:47 AM) 97 % (09/01/20 10:04 AM) 98 % (09/01/20 8:22 AM) Pulse Rate [55-90 bpm] 84 bpm (09/01/20 11:47 AM) 86 bpm (09/01/20 10:04 AM) 90 bpm (09/01/20 8:22 AM) Blood Pressure [90-138/55-84 mm Hg] 133/85mm Hg (09/01/20 11:47 AM) 134/90mm Hg (09/01/20 10:04 AM) 133/95mm Hg (09/01/20 8:22 AM) Respiratory Rate [16-30 br/min] 13 br/min *L* (09/01/20 11:47 AM) 16 br/min (09/01/20 10:35 AM) 16 br/min (09/01/20 10:04 AM) Temperature [96.8-100.4 DegF] 97.9 DegF (09/01/20 6:52 AM) 98.2 DegF (09/01/20 1:34 AM) Mode of Delivery (Oxygen) Room air (09/01/20 11:47 AM) Room air (09/01/20 10:04 AM) Room air (09/01/20 8:22 AM) Blood pressure sites Arm, left (09/01/20 11:47 AM) Arm, left (09/01/20 10:04 AM) Arm, left (09/01/20 8:22 AM) Temperature Route Oral (09/01/20 6:52 AM) Social History Social History Type Response Smoking Status Smoker, current stat us unknown entered on: 08/13/18 Sex
[2022-09-16 06:12] LABS: MANUAL DIFF FLAG NO
[2022-09-16 06:13] LABS: Basophils Absolute Auto 0.1 X10*3/uL (0.0-0.2); Basophils Percent Auto 0.7 % (0-2); Hematocrit 46.7 % (42.0-52.0); Hemoglobin 16.3 g/dl (14.0-18.0); Imm Gran Abs Auto 0.04 X10*3/uL (0.00-0.03); Imm Gran Pct Auto 0.5 % (0.0-0.4); Lymphocytes Absolute Auto 1.4 X10*3/uL (1.2-4.9); Lymphocytes Percent Auto 16.5 % (20-40); Mean Corpuscular HGB Conc 34.9 g/dl (31.0-36.0); Mean Corpuscular Volume 91.7 fL (80.0-98.0); Mean Platelet Volume 9.6 fL (9.4-12.4); Monocytes Absolute Auto 0.8 X10*3/uL (0.1-1.2); Monocytes Percent Auto 9.8 % (2-11); Neutrophils Absolute Auto 6.1 x10*3/uL (2.0-8.3); Neutrophils Percent Auto 72.5 % (45-73); Platelet Count 282 X10*3/uL (160-400); Red Blood Count 5.09 X10*6/uL (4.60-5.80); Red Cell Distribution Width 14.1 % (11.0-16.0); White Blood Count 8.4 X10*3/uL (4.8-10.8)
[2022-09-16] MEDS: LORazepam 1 MG TABLET 2 MG PO (06:14)
[2022-09-16] MEDS: ondansetron HCL 4 MG/2 ML VIAL IVPUSH (06:19)
[2022-09-16 06:31] LABS: Alanine Aminotransferase 175 U/L (0-40); Alkaline Phosphatase 150 U/L (39-117); Anion Gap 19 (12-20); Aspartate Amino Transferase 223 U/L (5-37); Bilirubin Total 1.2 mg/dL (0.0-1.0); Blood Urea Nitrogen 6 mg/dL (9-16); Calcium 9.5 mg/dL (8.4-10.2); Carbon Dioxide 24 mmol/L (22-29); Chloride 96 mmol/L (96-108); Creatinine Clr Calc Pharmacy 167.9; Estimated Glomerular Filt Rate > 60; Glucose Random 201 mg/dL (60-115); Lipase 87 U/L (8-78); Potassium 3.4 mmol/L (3.3-5.1); Sodium 136 mmol/L (135-145); Total Protein 8.1 g/dL (6.5-8.0)
--- NOTE | 2022-09-16 07:17 | ED_ITS ---
HPI - Nausea/Vomiting/Diarrhea General Chief complaint: Nausea/Vomiting/Diarrhea Stated complaint: Vomiting Time Seen by Provider: 09/16/22 06:38 Source: patient Mode of arrival: ambulatory Limitations: no limitations History of Present Illness HPI Narrative: 32-year-old male history of acid reflux, opiate use disorder, hepatitis-C, alcohol abuse, former IV drug abuse, currently on maintenance methadone, present ing to the emergency department with nausea, vomiting, headache ( without vision changes, dizziness or trauma), epigastric abdominal discomfort, fatigue, malaise, weakness. Patient reports he has been on a three-month drinking binge drinking 30-40 shots a day. last drink was last night at 20:00. He feels like he is starting to withdraw has history of alcohol withdrawal. Has been to detox with foreign is interested in detox today. Patient denies suicidal or homicidal ideation. Denies any other drug use including marijuana. Patient denies CP, SOB, vision changes, dizziness, changes in bowel habits or urination, visual, auditory and tactile hallucinations Related Data Home Medications Medication Instructions Recorded Confirmed methadone 10 mg/mL oral concentrate 120 mg PO DAILY 09/16/22 Allergies Allergy/AdvReac Type Severity Reaction Status Date / Time fluoxetine [From Prozac] Allergy Severe rash Verified 03/19/21 14:59 Review of Systems Review of Systems: Constitutional : No Weight loss, No Fever, No Chills, + Fatigue, + Malaise ENT/Mouth : No sore throat, No Rhinorrhea Eyes: No Eye Pain, No Swelling, No Redness Cardiovascular : No Chest Pain, No SOB, No Dyspnea on Exertion, No Orthopnea, No Edema, No Palpitations Respiratory : No Cough, No Sputum, No Wheezing Gastrointestinal : + Nausea, + Vomiting, No Diarrhea, No Constipation, + abdominal Pain, No Hematochezia, No Melena Genitourinary : No Dysuria, No Urinary Frequency, No Hematuria, Musculoskeletal : No joint pain, No Myalgias, No Joint Swelling Skin : No Skin Lesions, No rash Neuro : + Weakness, No Numbness, No Dizziness, No Headache Psych : No Anxiety/Panic, No Depression All other systems reviewed and are negative Yes all other systems are reviewed and are negative PMFSH Past Medical History Attestation statement: The following information was validated with the patient. Source: old records reviewed and nursing notes reviewed Medical History ETOH abuse History of cocaine abuse Social History Social History Household Members: Family Alcohol intake: current Alcohol intake frequency: 3 or more drinks per day Alcohol type: hard liquor Patient Tobacco Use Status: Never used Tobacco Smoked in Last 30 Days: No Use of substances other than those prescribed or required for medical reasons: No Substance Use Type: Heroin Advance Directives: No Advance Directives Information Provided: Yes Nutrition Risks: No Nutritional Risk Current occupational status: unemployed Physical Exam Vital Signs: Vital Signs: Last Vital Signs Temp 97.8 F 09/16/22 09:12 Pulse 107 H 09/16/22 09:12 Resp 18 09/16/22 09:12 BP 143/99 H 09/16/22 09:12 Pulse Ox 95 09/16/22 09:12 O2 Del Method Room Air 09/16/22 09:12 BMI result Body Mass Index 31.2 vss Appearance: Alert.? Oriented X3.? No acute distress.? Head: Normocephalic, atraumatic, no step-offs or deformities Eyes: Pupils equal, round and reactive to light.? ENT: Pharynx normal.? Neck: Normal inspection.? Neck supple.? CVS: Normal heart rate and rhythm.? Pulses normal.? Respiratory: No respiratory distress.? Breath sounds normal.? Abdomen: Soft and nontender.? Skin: Skin warm and dry.? Normal skin color.? Normal skin turgor.? Extremities: No lower extremity edema.? No calf ttp. 5/5 strength to bilateral upper and lower extremities Neuro: Oriented X 3.? No motor deficit.? No sensory deficit. CN 2-12 intact Course Reevaluation(s) Reevaluation #1: CBC appears to be within normal limits. chemistry significant for elevated bilirubin 1.2, and transaminases elevated in a 2-1 fashion, this is likely secondary to chronic alcohol abuse. Or alcoholic hepatitis. Patient still having nausea vomiting elevated see walk, lipase of 87, plan hospital admission alcohol withdrawn seeking detox. Time: 09:40 Medications Administered Discontinued Medications Generic Name Dose Route Start Last Admin Trade Name Freq PRN Reason Stop Dose Admin Lorazepam 2 mg 09/16/22 06:10 09/16/22 06:14 Lorazepam 1 Mg Tablet PO 09/16/22 06:11 2 mg ONCE ONE Administration Ondansetron HCl 4 mg 09/16/22 06:16 09/16/22 06:19 Ondansetron Hcl 4 Mg/2 Ml Vial IVPUSH 09/16/22 06:17 4 mg ONCE ONE Administration Medical Decision Making Medical Decision Making [facility] Narrative: 32-year-old male presents with nausea, vomiting, fatigue, malaise, feels like he is withdrawing from alcohol and he is seeking detox. Last drink 20:00 last night. Drinks 30-40 nips a day physical exam benign Concerns for alcohol withdrawal, pancreatitis, potentially cannabis induced hyperemesis, viral illness. Will rule out electrolyte abnormalities, UTI, polysubstance abuse. Unlikely acute abdomen, obstruction. No signs of delirium tremens No indication for imaging abdominal tenderness to palpation. Plan labs, urine, CIWA, drug screen CIWA on my evaluation 16. Differential Diagnosis Differential Diagnoses: The differential diagnosis associated with the presentation includes Concerns for alcohol withdrawal, pancreatitis, potentially cannabis induced hyperemesis, viral illness. Will rule out electrolyte abnormalities, UTI, polysubstance abuse. Unlikely acute abdomen, obstruction. No signs of delirium tremens Admission/Observation Consideration of admission/observation: Escalation of care including admission/observation considered Lab Data [facility] Lab Attestation statement: I reviewed the patient's lab results. 09/16/22 06:03 09/16/22 06:03 Labs: Lab Results 09/16/22 09/16/22 Range/Units 06:03 06:03 WBC 8.4 (4.8-10.8) X10*3/uL RBC 5.09 (4.60-5.80) X10*6/uL Hgb 16.3 (14.0-18.0) g/dl Hct 46.7 (42.0-52.0) % MCV 91.7 (80.0-98.0) fL MCH 32.0 (27.0-33.0) pg MCHC 34.9 (31.0-36.0) g/dl RDW 14.1 (11.0-16.0) % Plt Count 282 (160-400) X10*3/uL MPV 9.6 (9.4-12.4) fL Immature Gran % (Auto) 0.5 H (0.0-0.4) % Neut % (Auto) 72.5 (45-73) % Lymph % (Auto) 16.5 L (20-40) % [place] % (Auto) 9.8 (2-11) % Eos % (Auto) 0.0 (0-4) % Baso % (Auto) 0.7 (0-2) % Lymph # (Auto) 1.4 (1.2-4.9) X10*3/uL [place] # (Auto) 0.8 (0.1-1.2) X10*3/uL Eos # (Auto) 0.0 (0.0-0.4) X10*3/uL Baso # (Auto) 0.1 (0.0-0.2) X10*3/uL Abs Immat Gran (auto) 0.04 H (0.00-0.03) X10*3/uL Absolute Neuts (auto) 6.1 (2.0-8.3) x10*3/uL Absolute Nucleated RBC 0.000 (0.0-0.012) X10*3/uL Nucleated RBC % (auto) 0.0 (0.0-0.2) /100WBC Sodium 136 (135-145) mmol/L Potassium 3.4 (3.3-5.1) mmol/L Chloride 96 (96-108) mmol/L Carbon Dioxide 24 (22-29) mmol/L Anion Gap 19 (12-20) BUN 6 L (9-16) mg/dL Creatinine 0.85 (0.5-1.4) mg/dL Estim Creat Clear Calc 167.9 Estimated GFR > 60 Random Glucose 201 H (60-115) mg/dL Calcium 9.5 (8.4-10.2) mg/dL Total Bilirubin 1.2 H (0.0-1.0) mg/dL AST 223 H (5-37) U/L ALT 175 H (0-40) U/L Alkaline Phosphatase 150 H (39-117) U/L Total Protein 8.1 H (6.5-8.0) g/dL Albumin 4.0 (3.5-5.0) g/dL Lipase 87 H (8-78) U/L Ethyl Alcohol < 10 mg/dL Core Measures AMI core measures followed: Yes Measure exclusions: not indicated Critical Care Time Critical Care Time Critical Care Time: No Discharge Plan Discharge Clinical Impression: Alcohol withdrawal Patient Disposition: Still a Patient
[2022-09-16 07:18] VITALS: BP 147/102; PULSE 105; RESP 18; TEMP 36.4; O2SAT 96
--- NOTE | 2022-09-16 07:23 | PC.NURSE ---
pt a&ox3, vss aside from hypertension, pt states 4/10 abdominal tenderness upon palpation, last drink 24 hours ago, drank 20 nips yesterday and stopped at 8pm, usually consumes about 20-30 nips a day, CIWA = 19 - provider notified as she was present bedside doing assessment, pt states that he's feeling SOB and nauseous - clear lung sounds throughout, pt states he's feeling extremely dehydrated and wants to drink something but will just throw it up.
[2022-09-16 08:00] LABS: Ethanol < 10 mg/dL
[2022-09-16 09:12] VITALS: BP 143/99; PULSE 107; RESP 18; TEMP 36.6; O2SAT 95
--- NOTE | 2022-09-16 09:13 | P.HPHOSP_ITS ---
History of Present Illness Date of Service: 09/16/22 Chief Complaint: withdrawal 32M PMH etoh dependence, opiate dependence, hcv, mood disorder, obesity, fatty liver, presented with N/V. Patient reports drinking about 30 nips of fireballs per day. last drink 8pm ptp. has been having nausea and cvomitting for 3 days. would like to detox so came to ED. in ED CIWA 23. Review of Systems Review of Systems: Yes all other systems are reviewed and are negative PMFSH Medical History ETOH abuse History of cocaine abuse Social History Household Members: Family Alcohol intake: current Alcohol intake frequency: 3 or more drinks per day Alcohol type: hard liquor Patient Tobacco Use Status: Never used Tobacco Smoked in Last 30 Days: No Use of substances other than those prescribed or required for medical reasons: No Substance Use Type: Heroin Advance Directives: No Advance Directives Information Provided: Yes Current occupational status: unemployed Meds Allergies Allergy/AdvReac Type Severity Reaction Status Date / Time fluoxetine [From Prozac] Allergy Severe rash Verified 03/19/21 14:59 Active Medications: Current Medications Pharmacy Consult (Consult Rx Etoh Phenob Im/Po) 1 each MISCELLANE ONCE PRN; Protocol PRN Reason: Consult order Pharmacy Consult (Consult Rx Perform Med Rec) 1 each MISCELLANE ONCE PRN PRN Reason: Consult order Phenobarbital (Phenobarbital 30 Mg Tablet) 60 mg PO BID [facility]; Protocol Stop: 09/18/22 21:01 Phenobarbital (Phenobarbital 30 Mg Tablet) 30 mg PO BID [facility]; Protocol Stop: 09/20/22 21:01 Phenobarbital (Phenobarbital 30 Mg Tablet) 30 mg PO DAILY [facility]; Protocol Stop: 09/22/22 09:01 Phenobarbital Sodium (Phenobarbital Sodium 130 Mg/Ml Vial Im Q3hx2) 304 mg IM Q3H [facility]; Protocol Stop: 09/16/22 15:01 Home Medications Medication Instructions Recorded Confirmed Last Taken Type trazodone 100 mg tablet [id number] mg PO BEDTIME PRN 07/18/20 11/16/20 Unknown History methadone 10 mg/mL oral concentrate 100 mg PO DAILY 08/08/20 03/19/21 Unknown History gabapentin 300 mg capsule 300 mg PO TID 09/27/20 03/19/21 Unknown History ibuprofen 600 mg tablet 600 mg PO BID PRN pain 09/27/20 03/19/21 Unknown History sertraline 50 mg tablet 50 mg PO DAILY 09/27/20 11/16/20 Unknown History Physical Exam Vital Signs and Narrative: Vital Signs: Last Vital Signs Temp 97.6 F 09/16/22 07:18 Pulse 105 H 09/16/22 07:18 Resp 18 09/16/22 07:18 BP 147/102 H 09/16/22 07:18 Pulse Ox 96 09/16/22 07:18 O2 Del Method Room Air 09/16/22 07:18 BMI result Body Mass Index 31.2 alert oriented times 3 tremulous, anxious Results Labs 09/16/22 06:03 09/16/22 06:03 Labs: Laboratory Results - last 24 hr 09/16/22 09/16/22 06:03 06:03 MCV 91.7 MCH 32.0 MCHC 34.9 RDW 14.1 Plt Count 282 MPV 9.6 Immature Gran % (Auto) 0.5 H Neut % (Auto) 72.5 Lymph % (Auto) 16.5 L [place] % (Auto) 9.8 Eos % (Auto) 0.0 Baso % (Auto) 0.7 Lymph # (Auto) 1.4 [place] # (Auto) 0.8 Eos # (Auto) 0.0 Baso # (Auto) 0.1 Abs Immat Gran (auto) 0.04 H Absolute Neuts (auto) 6.1 Absolute Nucleated RBC 0.000 Nucleated RBC % (auto) 0.0 Anion Gap 19 Estim Creat Clear Calc 167.9 Estimated GFR > 60 Random Glucose 201 H Calcium 9.5 Total Bilirubin 1.2 H AST 223 H ALT 175 H Alkaline Phosphatase 150 H Total Protein 8.1 H Albumin 4.0 Lipase 87 H Ethyl Alcohol < 10 Assessment and Plan (1) Fatty liver: Status: Acute Plan 32M PMH etoh dependence, opiate dependence, hcv, mood disorder, obesity, fatty liver, presented with N/V etoh dependence with withdrawal and etoh gastritis and fatty liver phenobarb ivf ppi etoh cessaiton hcv outpatient follow up opiate dependence methadone when confirmed obesity weight loss mood disorder sertraline dvt prophylaxis - lovenox full code patient with etoh withdrawal scoring high on ciwa, will likely require atleast 2 midnights inpaitent Time Spent With Patient Time: Total time managing care of this patient today ____ minutes. Quality Stroke Does the patient have a stroke diagnosis?: No VTE Prior VTE?: No VTE Risk Level:: Medical - moderate - high VTE Device Contraindication: Treatment Not Indicated VTE Drug Contraindication: N/A - Med Ordered
--- NOTE | 2022-09-16 09:36 | PHA.MEDREC ---
Pharmacy Consult ? Medication Reconciliation Pharmacy has completed the medication reconciliation. spoke with patient. Reports taking no medications at home. He says he takes 120mg methadone from [facility] in [place]. Last dose yesterday.
[2022-09-16] MEDS: Lactated Ringers 1,000 ML 100 ML IVCONT ×2 (10:25→20:07)
[2022-09-16] MEDS: PHENobarbitaL sodium 130 MG/ML IM ONCE 406 MG IM (10:27)
--- NOTE | 2022-09-16 10:35 | PC.NURSE ---
medication and IVF administered per provider order, pt applied to engine monitor showing sinus tachycardia, vss, pt still verbalizing that he is nauseous.
--- NOTE | 2022-09-16 11:51 | PC.NURSE ---
Called [facility] ([phone]) on [facility] in [place] to verify pt's methadone dose - faxing over to pharmacy.
--- NOTE | 2022-09-16 12:02 | HE.PHANOTE ---
RECEIVED METHADONE VERIFICATION FORM LAST DOSE TAKEN 09/15/22 DOSE 120 MG, [facility] WITH [facility]
[2022-09-16] MEDS: methADONE HCl 20 MG/2 ML ORAL.CONC 120 MG PO (12:49)
[2022-09-16] MEDS: PHENobarbitaL sodium 130 MG/ML VIAL IM Q3Hx2 304 MG IM ×2 (12:54→14:53)
--- NOTE | 2022-09-16 12:55 | PC.NURSE ---
medications administered per provider order.
--- NOTE | 2022-09-16 13:02 | PC.NURSE ---
report given to RN on [facility].
--- NOTE | 2022-09-16 13:07 | PC.NURSE ---
pt notified that he will be moving upstairs to [facility] [place] - states that the abdominal pain and nausea has subsided, verbalizing that he feels weak and fatigue after throwing up so much. IVF still running.
--- NOTE | 2022-09-16 13:21 | PC.NURSE ---
transport notified to bring patient to floor
[2022-09-16 13:47] VITALS: BP 155/106; PULSE 115; RESP 20; TEMP 36.2; O2SAT 95
[2022-09-16 16:00] VITALS: BP 123/94; PULSE 92; RESP 20; TEMP 36.8; O2SAT 94
[2022-09-16 19:45] VITALS: BP 138/75; PULSE 98; RESP 18; TEMP 37; O2SAT 98
[2022-09-16] MEDS: PHENobarbitaL 30 MG TABLET 60 MG PO (20:07)
[2022-09-17] VITALS: BP 122/78; PULSE 97; RESP 20; TEMP 36.1; O2SAT 94
[2022-09-17 03:11] VITALS: BP 120/77; PULSE 94; RESP 20; TEMP 36.2; O2SAT 94
[2022-09-17] MEDS: Lactated Ringers 1,000 ML 100 ML IVCONT ×2 (05:25→17:19)
[2022-09-17] MEDS: Pantoprazole Sodium 40 MG/10 ML VIAL IVPUSH (05:25)
[2022-09-17 06:58] LABS: Hematocrit 42.7 % (42.0-52.0); Hemoglobin 14.3 g/dl (14.0-18.0); Mean Corpuscular HGB Conc 33.5 g/dl (31.0-36.0); Mean Corpuscular Hemoglobin 31.4 pg (27.0-33.0); Mean Corpuscular Volume 93.8 fL (80.0-98.0); Mean Platelet Volume 9.3 fL (9.4-12.4); Platelet Count 169 X10*3/uL (160-400); Red Blood Count 4.55 X10*6/uL (4.60-5.80); Red Cell Distribution Width 14.4 % (11.0-16.0); White Blood Count 4.9 X10*3/uL (4.8-10.8)
[2022-09-17 07:04] LABS: INTERNATIONAL NORM RATIO 1.2 (0.9-1.1)
[2022-09-17 07:29] LABS: Alanine Aminotransferase 118 U/L (0-40); Albumin Level 3.4 g/dL (3.5-5.0); Alkaline Phosphatase 126 U/L (39-117); Anion Gap 13 (12-20); Aspartate Amino Transferase 138 U/L (5-37); Blood Urea Nitrogen 8 mg/dL (9-16); Calcium 9.3 mg/dL (8.4-10.2); Carbon Dioxide 32 mmol/L (22-29); Chloride 93 mmol/L (96-108); Creatinine Clr Calc Pharmacy 169.9; Estimated Glomerular Filt Rate > 60; Glucose Fasting 118 mg/dL (60-99); Potassium 3.6 mmol/L (3.3-5.1); Sodium 134 mmol/L (135-145); Total Protein 6.5 g/dL (6.5-8.0)
[2022-09-17 07:49] VITALS: BP 139/84; PULSE 93; RESP 20; TEMP 36.8; O2SAT 94
--- NOTE | 2022-09-17 09:26 | MHC.CM.PN ---
EMR REVIEWED, PT ADMITTED W/ETOH WITHDRAWAL, CM MET W/PT WHO REPORTS HE IS ON METHADONE MAINT FOR ETOH WITHDRAWAL AT [facility], PT REPORTS HE LIVES W/HIS MOTHER, IS INDEP W/ALL CARE, DENIES USE OF DME/HOME SERVICES, PT DOES REPORT HE DOES NOT PAY RENT AND RECEIVES FOOD STAMPS HOWEVER IS INTERESTED IN [employer] WHICH WAS PROVIDED TO PT. PT VERIFIES PCP IS STARLA HODGES, ASHLEY VACC X2 AND PT EDUCATED ON AND DECLINES TO COMPLETE A HCP PRIOR TO D/C.
[2022-09-17] MEDS: PHENobarbitaL 30 MG TABLET 60 MG PO ×2 (09:32→20:46)
[2022-09-17] MEDS: methADONE HCl 20 MG/2 ML ORAL.CONC 120 MG PO (09:32)
--- NOTE | 2022-09-17 09:35 | HO.PM.IMPN ---
Subjective Subjective Date of Service: 09/17/22 Interval History: overall improved, still tremulous, feels withdrawal symptoms Physical Exam Vital Signs: Vital Signs: Last Vital Signs Temp 98.3 F 09/17/22 07:49 Pulse 93 09/17/22 07:49 Resp 20 09/17/22 07:49 BP 139/84 09/17/22 07:49 Pulse Ox 94 09/17/22 07:49 O2 Del Method Room Air 09/17/22 07:49 BMI result Body Mass Index 31.2 General: AO X 3, tremulous, anxious Resp: CTA bilateral, no accessory muscles used CVS: S1,S2,RRR GI: soft, non tender, non distended Objective Data Active Medications Enoxaparin Sodium (Enoxaparin Sodium 40 Mg/0.4 Ml Syringe) 40 mg SUBCUT Q24H [facility] Last Admin: 09/17/22 09:34 Dose: Not Given Documented By: JAZMINE Non-Admin Reason: Patient Refused Lactated Ringer's (Lr) 1,000 mls @ 100 mls/hr IVCONT .Q10H [facility] Last Admin: 09/17/22 05:25 Dose: 100 mls/hr Documented By: JUAN Methadone HCl (Methadone Hcl 20 Mg/2 Ml Oral.Conc) 120 mg PO DAILY [facility] Last Admin: 09/17/22 09:32 Dose: 120 mg Documented By: JAZMINE Pantoprazole Sodium (Pantoprazole Sodium 40 Mg/10 Ml Vial) 40 mg IVPUSH DAILY@0630 [facility] Last Admin: 09/17/22 05:25 Dose: 40 mg Documented By: JUAN Pharmacy Consult (Consult Rx Etoh Phenob Im/Po) 1 each MISCELLANE ONCE PRN; Protocol PRN Reason: Consult order Pharmacy Consult (Consult Rx Perform Med Rec) 1 each MISCELLANE ONCE PRN PRN Reason: Consult order Phenobarbital (Phenobarbital 30 Mg Tablet) 60 mg PO BID [facility]; Protocol Stop: 09/18/22 09:01 Last Admin: 09/17/22 09:32 Dose: 60 mg Documented By: JAZMINE Phenobarbital (Phenobarbital 30 Mg Tablet) 30 mg PO BID [facility]; Protocol Stop: 09/20/22 09:01 Phenobarbital (Phenobarbital 30 Mg Tablet) 30 mg PO DAILY [facility]; Protocol Stop: 09/22/22 09:01 Sodium Chloride (0.9 % Sodium Chloride Flush 3 Ml Syringe) 3 ml IVFLUSH QSHIFT [facility] Last Admin: 09/17/22 09:33 Dose: Not Given Documented By: JAZMINE Non-Admin Reason: IV Running Labs 09/17/22 06:51 09/17/22 06:51 Labs: Laboratory Results - last 24 hr 09/17/22 09/17/22 09/17/22 06:51 06:51 06:51 MCV 93.8 MCH 31.4 MCHC 33.5 RDW 14.4 Plt Count 169 D MPV 9.3 L Absolute Nucleated RBC 0.000 Nucleated RBC % (auto) 0.0 PT 14.0 H INR 1.2 H Anion Gap 13 Estim Creat Clear Calc 169.9 Estimated GFR > 60 Fasting Glucose 118 H Calcium 9.3 Total Bilirubin 2.0 H Direct Bilirubin 1.0 H AST 138 H ALT 118 H Alkaline Phosphatase 126 H Total Protein 6.5 Albumin 3.4 L Assessment and Plan (1) Alcohol withdrawal: Status: Acute Plan 32M PMH etoh dependence, opiate dependence, hcv, mood disorder, obesity, fatty liver, presented with N/V etoh dependence with withdrawal and etoh gastritis and fatty liver phenobarb ivf ppi etoh cessation hcv outpatient follow up opiate dependence methadone obesity weight loss dvt prophylaxis - lovenox full code reason for continued hospitalization:active withdrawal Time Spent With Patient Time: Total time managing care of this patient today ____ minutes. Quality Stroke Does the patient have a stroke diagnosis?: No VTE Prior VTE?: No VTE Risk Level:: Medical - moderate - high VTE Device Contraindication: Treatment Not Indicated VTE Drug Contraindication: N/A - Med Ordered
[2022-09-17 11:40] VITALS: BP 137/75; PULSE 91; RESP 20; TEMP 36.4; O2SAT 96
[2022-09-17 16:00] VITALS: BP 132/76; PULSE 86; RESP 20; TEMP 36.4; O2SAT 97
[2022-09-17 19:28] VITALS: BP 135/79; PULSE 91; RESP 20; TEMP 37.6; O2SAT 96
[2022-09-18] VITALS: BP 130/84; PULSE 78; RESP 20; TEMP 36.1; O2SAT 98
[2022-09-18 03:06] VITALS: BP 121/72; PULSE 87; RESP 20; TEMP 36.3; O2SAT 94
[2022-09-18] MEDS: Lactated Ringers 1,000 ML 100 ML IVCONT (03:13)
[2022-09-18] MEDS: Pantoprazole Sodium 40 MG/10 ML VIAL IVPUSH (06:25)
[2022-09-18 07:28] VITALS: BP 147/71; PULSE 84; RESP 18; TEMP 36.9; O2SAT 94
[2022-09-18] MEDS: PHENobarbitaL 30 MG TABLET 60 MG PO (07:34)
[2022-09-18] MEDS: methADONE HCl 20 MG/2 ML ORAL.CONC 120 MG PO (07:37)
[2022-09-18] MEDS: ondansetron HCL 4 MG/2 ML VIAL IVPUSH (08:14)
[2022-09-18 08:28] LABS: Hematocrit 38.4 % (42.0-52.0); Hemoglobin 12.7 g/dl (14.0-18.0); Mean Corpuscular HGB Conc 33.1 g/dl (31.0-36.0); Mean Corpuscular Hemoglobin 31.5 pg (27.0-33.0); Mean Corpuscular Volume 95.3 fL (80.0-98.0); Mean Platelet Volume 10.3 fL (9.4-12.4); Platelet Count 149 X10*3/uL (160-400); Red Blood Count 4.03 X10*6/uL (4.60-5.80); Red Cell Distribution Width 13.9 % (11.0-16.0); White Blood Count 3.3 X10*3/uL (4.8-10.8)
[2022-09-18 08:43] LABS: Alanine Aminotransferase 82 U/L (0-40); Albumin Level 3.1 g/dL (3.5-5.0); Alkaline Phosphatase 107 U/L (39-117); Anion Gap 12 (12-20); Aspartate Amino Transferase 92 U/L (5-37); Bilirubin Direct 0.8 mg/dL (0.0-0.5); Bilirubin Total 1.4 mg/dL (0.0-1.0); Blood Urea Nitrogen 6 mg/dL (9-16); Calcium 8.8 mg/dL (8.4-10.2); Carbon Dioxide 31 mmol/L (22-29); Chloride 97 mmol/L (96-108); Creatinine Clr Calc Pharmacy 180.7; Estimated Glomerular Filt Rate > 60; Glucose Fasting 86 mg/dL (60-99); Magnesium 1.8 mg/dL (1.6-2.6); Potassium 3.3 mmol/L (3.3-5.1); Sodium 137 mmol/L (135-145)
[2022-09-18 11:19] VITALS: BP 115/69; PULSE 78; RESP 18; TEMP 36.4; O2SAT 92
--- NOTE | 2022-09-18 12:53 | MHC.CM.PN ---
EMR REVIEWED, PER HOSPITALIST PT REMAINS IN ETOH WITHDRAWAL, PT ON IV FLUIS AND IV PHENOBARB, NO PLAN FOR D/C AT THIS TIME, CM WILL CONT TO FOLLOW D/C NEEDS.
--- NOTE | 2022-09-18 13:01 | P.PNIM_ITS ---
Subjective Subjective Date of Service: 09/18/22 Interval History: being followed for alcohol withdrawal admitted for nausea, vomiting, complaining of mild nausea, tolerating diet abdominal pain has improved, no diarrhea, no fevers, no chills, complaining of dark-colored urine likely due to elevated bili, no other acute issues overnight . Review of Systems all other system reviewed and negative. Physical Exam Vital Signs: Vital Signs: Last Vital Signs Temp 97.6 F 09/18/22 11:19 Pulse 78 09/18/22 11:19 Resp 18 09/18/22 11:19 BP 115/69 09/18/22 11:19 Pulse Ox 92 09/18/22 11:19 O2 Del Method Room Air 09/18/22 11:19 BMI result Body Mass Index 31.2 Const: Other: General resting comfortably, in no acute distress. Neck supple, no JVD. CVS regular rate rhythm, Respiratory lungs clear to auscultation, no respiratory distress, no wheeze, no rhonchi. Gastrointestinal abdomen soft, non tender, bowel sounds audible, ,no guarding , no rigidity. Extremities no edema. Neuro nonfocal , mild tremors Skin no rash psych appropriate affect Objective Data Active Medications Enoxaparin Sodium (Enoxaparin Sodium 40 Mg/0.4 Ml Syringe) 40 mg SUBCUT Q24H [facility] Last Admin: 09/18/22 07:38 Dose: Not Given Documented By: JAZMINE Non-Admin Reason: Patient Refused Lactated Ringer's (Lr) 1,000 mls @ 100 mls/hr IVCONT .Q10H [facility] Last Admin: 09/18/22 03:13 Dose: 100 mls/hr Documented By: MARTINEZ Methadone HCl (Methadone Hcl 20 Mg/2 Ml Oral.Conc) 120 mg PO DAILY [facility] Last Admin: 09/18/22 07:37 Dose: 120 mg Documented By: JAZMINE Ondansetron HCl (Ondansetron Hcl 4 Mg/2 Ml Vial) 4 mg IVPUSH Q6H PRN PRN Reason: Nausea and Vomiting Last Admin: 09/18/22 08:14 Dose: 4 mg Documented By: JAZMINE Pantoprazole Sodium (Pantoprazole Sodium 40 Mg/10 Ml Vial) 40 mg IVPUSH DAILY@0630 [facility] Last Admin: 09/18/22 06:25 Dose: 40 mg Documented By: MARTINEZ Pharmacy Consult (Consult Rx Etoh Phenob Im/Po) 1 each MISCELLANE ONCE PRN; Protocol PRN Reason: Consult order Pharmacy Consult (Consult Rx Perform Med Rec) 1 each MISCELLANE ONCE PRN PRN Reason: Consult order Phenobarbital (Phenobarbital 30 Mg Tablet) 30 mg PO BID [facility]; Protocol Stop: 09/20/22 09:01 Phenobarbital (Phenobarbital 30 Mg Tablet) 30 mg PO DAILY [facility]; Protocol Stop: 09/22/22 09:01 Sodium Chloride (0.9 % Sodium Chloride Flush 3 Ml Syringe) 3 ml IVFLUSH QSHIFT [facility] Last Admin: 09/18/22 07:38 Dose: Not Given Documented By: JAZMINE Non-Admin Reason: IV Running Labs 09/18/22 06:24 09/18/22 06:24 Labs: Laboratory Results - last 24 hr 09/18/22 09/18/22 06:24 06:24 MCV 95.3 MCH 31.5 MCHC 33.1 RDW 13.9 Plt Count 149 L MPV 10.3 Absolute Nucleated RBC 0.000 Nucleated RBC % (auto) 0.0 Anion Gap 12 Estim Creat Clear Calc 180.7 Estimated GFR > 60 Fasting Glucose 86 Calcium 8.8 Magnesium 1.8 Total Bilirubin 1.4 H Direct Bilirubin 0.8 H AST 92 H ALT 82 H Alkaline Phosphatase 107 Total Protein 6.0 L Albumin 3.1 L Assessment and Plan (1) Alcohol withdrawal: Status: Acute Plan 32M PMH etoh dependence, opiate dependence, hcv, mood disorder, obesity, fatty liver, presented with N/V etoh dependence with withdrawal and etoh gastritis and fatty liver continue phenobarb protocol, tolerating diet will DC IV fluids add IV Zofran as needed on IV ppi will transition to by mouth in 24 hours etoh cessation advised, obtain Addiction Medicine consult recommend out of to chair and ambulation transaminitis, LFTs trending down likely acute alcoholic hepatitis, mild nausea strongly recommend to abstain from alcohol. hcv outpatient follow up opiate dependence on methadone obesity weight loss dvt prophylaxis - lovenox full code reason for continued hospitalization:active withdrawal on phenobarb protocol Time Spent With Patient Time: Total time managing care of this patient today ____ minutes. Quality Stroke Does the patient have a stroke diagnosis?: No VTE Prior VTE?: No VTE Risk Level:: Medical - moderate - high VTE Device Contraindication: Treatment Not Indicated VTE Drug Contraindication: N/A - Med Ordered
[2022-09-18] MEDS: 0.9 % Sodium Chloride Flush 3 ML SYRINGE IVFLUSH ×2 (15:53→20:32)
[2022-09-18 16:00] VITALS: BP 122/69; PULSE 81; RESP 18; TEMP 36.1; O2SAT 94
[2022-09-18 19:38] VITALS: BP 118/69; PULSE 89; RESP 18; TEMP 36.6; O2SAT 94
[2022-09-18] MEDS: PHENobarbitaL 30 MG TABLET PO (20:31)
[2022-09-19] VITALS: BP 119/70; PULSE 83; RESP 20; TEMP 36.4; O2SAT 96
[2022-09-19 03:19] VITALS: BP 118/67; PULSE 86; RESP 20; TEMP 36.3; O2SAT 96
[2022-09-19] MEDS: Pantoprazole Sodium 40 MG/10 ML VIAL IVPUSH (06:03)
[2022-09-19 07:52] VITALS: BP 119/59; PULSE 84; RESP 20; TEMP 36.7; O2SAT 97
[2022-09-19] MEDS: PHENobarbitaL 30 MG TABLET PO (08:18)
[2022-09-19] MEDS: methADONE HCl 20 MG/2 ML ORAL.CONC 120 MG PO (08:18)
[2022-09-19] MEDS: 0.9 % Sodium Chloride Flush 3 ML SYRINGE IVFLUSH (08:18)
--- NOTE | 2022-09-19 11:13 | MHC.RECOVRN ---
Met with pt in 487 after consult placed to Addiction Medicine for alcohol use. [place] [facility] after presenting with n/v x 3 days. Pt laying in bed, awake, alert, easily engages in conversation. Pt reports drinking 20-30 nips Fireball daily x 3 months. Pt reports always drinking, having 3-4 months in recovery at the most, unsure when. Pt reports last ATS admission in summer 2020 at [facility]. Pt reports attending AA in the past, did not find it helpful. Pt has taken acamprosate in the past with positive effects, interested in restarting. Pt is currently on methadone through [facility] x 2.5 years. Pt reports abstinence from opioids and denies concerns regarding substance use. Pt provided with written recovery resources and supports, denies questions or concerns. Educated pt on [facility], would like to initiate care for AUD. Appt made at the [facility] for 09/23/22 at 3:45PM. CM and pt aware.
--- NOTE | 2022-09-19 11:37 | MHC.CM.PN ---
Pt medically cleared for dc home self-care, recovery nurse has set up appt at [facility] 09/23 at 3:45pm to start Campral for etoh cravings, appt added to d/c paperwork and pt will call family for transport.
[2022-09-19 11:57] VITALS: BP 110/65; PULSE 78; RESP 19; TEMP 36.8; O2SAT 93
--- NOTE | 2022-09-19 12:47 | P.DS_ITS ---
DS: Providers Provider Date of Service: 09/19/22 Date of admission: 09/16/22 09:12 Primary care physician: Taras Antunez MD Consults: 09/18/22 13:03 Addiction Medicine Routine Consulting Provider: Addiction Covering Reason for consultation: etoh Has provider been notified: No DS: Diagnosis Discharge Diagnosis (1) Alcohol withdrawal: Status: Acute DS: Summary Hospital Course Hospital Course: history of presenting illness: Date of Service: 09/16/22 Chief Complaint: withdrawal 32M PMH etoh dependence, opiate dependence, hcv, mood disorder, obesity, fatty liver, presented with N/V.? Patient reports drinking about 30 nips of fireballs per day. last drink 8pm ptp. has been having nausea and cvomitting for 3 days. would like to detox so came to ED. in ED CIWA 23. hospital course : 32M PMH etoh dependence, opiate dependence, hcv, mood disorder, obesity, fatty liver, presented with N/V , admitted to medical floor with a diagnosis of etoh dependence with withdrawal and etoh gastritis and fatty liver treated with phenobarb, IV fluids antiemetics and IV ppi, patient's symptoms improved, tolerating diet tremors have resolved ambulating with steady gait, seen by Addiction Team outpatient referrals given strongly recommended to abstain from alcohol. transaminitis, Noted to have elevated LFTs, likely? acute alcoholic hepatitis, with a backdrop of hepatitis-C infection recommend complete abstinence from alcohol and outpatient follow-up with PCP and Gastroenterology for hepatitis-C treatment . hcv outpatient follow up with PCP in Gastroenterology opiate dependence continue methadone obesity weight loss recommended. Time Spent with Patient Time attestation: Total time managing care of this patient today ____ minutes. Discharge coordination time: Greater than 30 minutes Quality: Safe Use of Opioids Does Pt have an Active Cancer Diagnosis on the Problem List?: No Quality: Stroke Does the patient have a stroke diagnosis?: No Physical Exam Vital Signs: Vital Signs: Last Vital Signs Temp 98.2 F 09/19/22 11:57 Pulse 78 09/19/22 11:57 Resp 19 09/19/22 11:57 BP 110/65 09/19/22 11:57 Pulse Ox 93 09/19/22 11:57 O2 Del Method Room Air 09/19/22 11:57 BMI result Body Mass Index 31.2 Const: Other: General resting comfortably, in no acute distress.? Neck? supple, no JVD. CVS? regular rate rhythm, Respiratory lungs clear to auscultation, no respiratory distress, no wheeze, no rhonchi. Gastrointestinal abdomen soft, non tender, bowel sounds audible, ,no guarding , no rigidity. Extremities no? edema. Neuro nonfocal , mild tremors Skin no rash psych appropriate affect Discharge Plan Discharge Anticipated Discharge Date/Time: 09/19/22 11:03 Patient Disposition: Home, Self-Care Discharge Diagnosis: ETOH dependence with withdrawal Etoh gastritis transaminitis opioid dependence Referrals: [facility] [Other] - 1 Week (YOU HAVE AN APPT ON 09/23 AT 3:45PM AT [facility]. ) Taras Antunez MD [Primary Care Provider] - 1 Week Discharge Medications: New omeprazole 20 mg Capsule,Delayed Release(Dr/Ec) 20 mg PO DAILY@0630 Qty: 30 0RF Continued methadone 10 mg/mL Concentrate 120 mg PO DAILY Discharge Orders: Discharge Order (Routine); Ordered 09/19/22 Ordered By: Golden Mcneal Diet: Advance to usual diet Activity on Discharge: As tolerated Stand Alone Forms: Patient Portal Discharge page Care Plan Goals: strongly recommend to abstain from alcohol, call outpatient recovery resources and support continue all medications as before pursue treatment for hep C Health Concerns: Alcohol use Plan of Treatment: outpatient follow-up with primary care physician and Gastroenterology. Assessment: as above Patient Instructions: Alcohol Withdrawal (DC)
== END 2022-09-19 14:23 | disposition home or self-care (01) | DRG 241 ==
LOC: HO.ED 07:28 → HO.EDOVER 09:42 → HO.IMC 12:42
PROVIDERS: Physician Assistant; Admitting Provider Internal Medicine; Emergency Provider Emergency Medicine; PCP Internal Medicine; Visit Provider Hospitalist
DX: K29.20 Alcoholic gastritis without bleeding (principal); K76.0 Fatty (change of) liver, not elsewhere classified; K70.10 Alcoholic hepatitis without ascites; B19.20 Unspecified viral hepatitis C without hepatic coma; F10.239 Alcohol dependence with withdrawal, unspecified; F11.20 Opioid dependence, uncomplicated; E66.9 Obesity, unspecified; Z68.31 Body mass index [BMI] 31.0-31.9, adult
CPT/HCPCS: 36415; 80048; 80053; 80076; 80307; 83690; 83735; 85025; 85027; 85610; 99285; J2405; J2560

== ENCOUNTER → 2022-09-16 05:43 | Outpatient (BNV) | payer MEDICAID, SELFPAY | PROVIDERS: Emergency Provider Emergency Medicine; Visit Provider Internal Medicine | DX: F10.939 Alcohol use, unspecified with withdrawal, unspecified (principal) | CPT/HCPCS: 99223; 99233; 99239 ==

== ENCOUNTER 2023-05-10 23:26 | Inpatient (IN) | payer MEDICAID, SELFPAY ==
--- NOTE | 2023-05-10 | ECG_ITS ---
Test Reason : TACHYCARDIA Blood Pressure : / mmHG Vent. Rate : 131 BPM Atrial Rate : 131 BPM P-R Int : 178 ms QRS Dur : 098 ms QT Int : 262 ms P-R-T Axes : 041 030 258 degrees QTc Int : 386 ms Sinus tachycardia Cannot rule out Inferior infarct (cited on or before 09-JUL-2021) Marked ST abnormality, possible lateral subendocardial injury Abnormal ECG When compared with ECG of 09-JUL-2021 16:12, ST now depressed in Lateral leads T wave inversion more evident in Lateral leads Referred By: Generic ED Physician Electronically Signed By:ANNA ALMARAZ MD
--- NOTE | ~2023-05-10 | XR_ITS ---
EXAMINATION: XR CHEST CLINICAL INFORMATION: Concern for pneumonia. COMPARISON: None available. TECHNIQUE: Frontal view of the chest was obtained. FINDINGS: No significant abnormality is noted involving the heart, lungs, mediastinum, bony thorax or soft tissues. XR/XR chest 1V IMPRESSION: Unremarkable examination.
--- NOTE | ~2023-05-10 | CT_ITS ---
EXAMINATION: CT ANGIOGRAM OF THE CHEST WITH AND WITHOUT CONTRAST (CT PULMONARY ANGIOGRAM FOR PE) CLINICAL INFORMATION: Reason for Exam tachyardic, hypoxic COMPARISON: None available. TECHNIQUE: Prior to contrast administration, noncontrast localization images were obtained. Subsequently, multidetector volumetric imaging was performed from the thoracic inlet to below the diaphragms following the administration of 65 mL Omnipaque 350 intravenous contrast. No contrast reaction reported Sagittal, coronal, and MIP oblique sagittal reformatted images were obtained on the CT workstation, uploaded to PACS, and reviewed. This CT examination was performed using dose optimization techniques as appropriate, variously including the following: *Automated exposure control *Adjustment of mA and/or kV according to patient size (this includes techniques or standardized protocols for targeted exams where dose is matched to indication/reason for exam; i.e. extremities or head) *Use of iterative reconstruction technique Total exam dose-length product 384 mGy-cm FINDINGS: QUALITY OF STUDY/CONTRAST BOLUS: Satisfactory. PULMONARY ARTERIES: No pulmonary emboli. THORACIC AORTA: No aneurysm. LUNG: No focal consolidation, nodules or masses. PLEURA: No pleural effusion or pneumothorax. MEDIASTINUM: Normal heart size. No pericardial effusion. No hilar or mediastinal lymphadenopathy. No evidence of septal bowing or right heart strain. CORONARY ARTERY CALCIFICATION: None visualized on this study. CHEST WALL/AXILLA: No axillary or internal mammary lymphadenopathy. OSSEOUS STRUCTURES: There are apparent healing fractures of the anterior right fifth, sixth and seventh as well as left fifth and sixth ribs. UPPER ABDOMEN: The visualized liver is of diminished attenuation. No reflux of contrast into the hepatic veins to suggest elevated right heart pressures. CT/CT angio chest PE protocol IMPRESSION: 1. No evidence of pulmonary embolism. 2. Apparent healing fractures of the anterior right fifth, sixth and seventh as well as left fifth and sixth ribs. VTE: negative.
[2023-05-10 23:30] VITALS: BP 153/110; PULSE 136; RESP 20; TEMP 36.9; O2SAT 94; BMI 30.8
[2023-05-10 23:56] LABS: MANUAL DIFF FLAG NO
[2023-05-11] VITALS (12 sets, daily range): BP systolic 127–168; BP diastolic 81–111; PULSE 86–138; RESP 12–20; TEMP 36.4–37.1; O2SAT 87–97; BMI 32.1
[2023-05-11] LABS: Basophils Percent Auto 0.5 % (0-2); Eosinophils Percent Auto 0.1 % (0-4); Hematocrit 51.6 % (42.0-52.0); Hemoglobin 17.7 g/dl (14.0-18.0); Imm Gran Abs Auto 0.02 X10*3/uL (0.00-0.03); Imm Gran Pct Auto 0.3 % (0.0-0.4); Lymphocytes Absolute Auto 3.1 X10*3/uL (1.2-4.9); Lymphocytes Percent Auto 39.2 % (20-40); Mean Corpuscular HGB Conc 34.3 g/dl (31.0-36.0); Mean Corpuscular Hemoglobin 31.9 pg (27.0-33.0); Mean Corpuscular Volume 93.1 fL (80.0-98.0); Mean Platelet Volume 9.2 fL (9.4-12.4); Monocytes Absolute Auto 0.5 X10*3/uL (0.1-1.2); Monocytes Percent Auto 6.5 % (2-11); Neutrophils Absolute Auto 4.2 x10*3/uL (2.0-8.3); Neutrophils Percent Auto 53.4 % (45-73); Platelet Count 267 X10*3/uL (160-400); Red Blood Count 5.54 X10*6/uL (4.60-5.80); Red Cell Distribution Width 14.1 % (11.0-16.0)
--- NOTE | 2023-05-11 00:11 | PC.NURSE ---
5 days of vomiting, cough , congestion, denies fevers, denies diarrhea, denies chest pain. reports sob and high BPs. pt says he feels very dehydrated. HR 130 tachycardia on monitor, O2 90-92% room air reports drinking 8 oz. of hard liquor today which is normal for him nothing crazy per pt.
[2023-05-11 00:14] LABS: Alanine Aminotransferase 70 U/L (0-40); Albumin Level 4.3 g/dL (3.5-5.0); Alkaline Phosphatase 174 U/L (39-117); Anion Gap 19 (12-20); Aspartate Amino Transferase 155 U/L (5-37); Bilirubin Total 0.7 mg/dL (0.0-1.0); Blood Urea Nitrogen 4 mg/dL (9-16); Carbon Dioxide 26 mmol/L (22-29); Chloride 98 mmol/L (96-108); Creatinine Clr Calc Pharmacy 167.4; Estimated Glomerular Filt Rate > 60; Ethanol 399 mg/dL; Glucose Random 199 mg/dL (60-115); Potassium 3.3 mmol/L (3.3-5.1); Sodium 140 mmol/L (135-145); Total Protein 8.9 g/dL (6.5-8.0)
[2023-05-11 00:20] LABS: COVID-19 Test Negative (Negative); IDNOW Serial# 152EDE1D
[2023-05-11 00:29] LABS: IDNOW Serial# 08D9AD1C; Influenza A Negative (Negative); Influenza B2 Negative (Negative)
--- NOTE | 2023-05-11 00:43 | ED_ITS ---
HPI - General Adult General Chief complaint: General Medical Stated complaint: dehydrated Time Seen by Provider: 05/11/23 00:34 Source: patient Mode of arrival: ambulatory Limitations: no limitations History of Present Illness HPI narrative: Patient comes to the emergency room complaining diffuse body aches, URI symptoms, and alcohol intoxication. Patient denies chest pain or shortness of breath. Patient states that he has been coughing more than usual. Related Data Home Medications Medication Instructions Recorded Confirmed methadone 10 mg/mL oral concentrate 120 mg PO DAILY 09/16/22 Previous Rx's Medication Instructions Recorded omeprazole 20 mg capsule,delayed 20 mg PO DAILY@0630 #30 caps 09/19/22 release Allergies Allergy/AdvReac Type Severity Reaction Status Date / Time No Known Allergies Allergy Verified 05/10/23 23:30 Review of Systems 2 Review of Systems: Constitutional : No Weight loss, No Fever, No Chills, No Night Sweats, No Fatigue, No Malaise ENT/Mouth : No Hearing loss, No Ear Pain, complaining Nasal Congestion, No Sinus Pain, No Hoarseness, No sore throat, No Rhinorrhea, No Swallowing Difficulty Eyes: No Eye Pain, No Swelling, No Redness, No Foreign Body, No Discharge, No Vision Changes Cardiovascular : No Chest Pain, No SOB, No Dyspnea on Exertion, No Orthopnea, No Edema, No Palpitations Respiratory : No Cough, No Sputum, No Wheezing, No Smoke Exposure, No Dyspnea Gastrointestinal : Complaining of nausea and vomiting, No Diarrhea, No Constipation, No abdominal Pain, No Hematochezia, No Melena Genitourinary : no irregular bleeding, No Dysuria, No Urinary Frequency, No Hematuria, No Urinary Incontinence, No Urgency, No Flank Pain, No Urinary Flow Changes, No Hesitancy Musculoskeletal : No joint pain, No Myalgias, No Joint Swelling Skin : No Skin Lesions, No rash Neuro : No Weakness, No Numbness, No Paresthesias, No Loss of Consciousness, No Dizziness, No Headache Psych : No Anxiety/Panic, No Depression, No SI/HI/AH/VH, admits to heavy alcohol drink Heme/Lymph: No Bruising, No Bleeding,No Lymphadenopathy Endocrine : No Polyuria, No Polydipsia, No Temperature Intolerance PMFSH Past Medical History Medical History Fatty liver History of cocaine abuse ETOH abuse Social History Social History Household Members: Family Housing: House Do you presently have visiting nurse or other home services: No Alcohol intake: current Alcohol intake frequency: 3 or more drinks per day Alcohol type: hard liquor Comment: pt refused bed/chair alarm despite fall risk education given Patient Tobacco Use Status: Never used Tobacco Substance Use Type: Heroin Advance Directives: No Advance Directives Information Provided: No service: No Current occupational status: unemployed Physical Exam ED Vital Signs: Vital Signs - 24 hr 05/10/23 23:30 05/11/23 00:50 05/11/23 02:08 Temperature 98.4 F 98.3 F Pulse Rate 136 H 138 H 107 H Respiratory Rate 20 15 Blood Pressure 153/110 H 168/111 H 128/82 Pulse Oximetry 94 94 95 Oxygen Delivery Method Room Air Room Air Room Air BMI result Body Mass Index 30.8 Const Other: Appearance: Alert. Oriented X3. No acute distress. Seems intoxicated Eyes: Pupils equal, round and reactive to light. ENT: Pharynx normal. Dry oral mucosa Neck: Normal inspection. Neck supple. No lymph nodes noted. No crepitus CVS: Regular rhythm, tachycardic in the 130s to 140s.. Pulses normal. Normal S1 and S2 Respiratory: No respiratory distress. Breath sounds normal. No Wheezing. No rales Abdomen: Soft and nontender. No rigidity. No distention. Skin: Skin warm and dry. Normal skin color. Normal skin turgor. Extremities: No lower extremity edema. No Lacerations. No Rash Neuro: Oriented X 3. No motor deficit. No sensory deficit. Moving all extremities. No slurred speech. CN 2 through 12 grossly intact Psych: cooperative, a bit agitated, anxious, intoxicated Course Course Course Narrative: -receiving IV fluids and Zofran Medications Administered Discontinued Medications Generic Name Dose Route Start Last Admin Trade Name Freq PRN Reason Stop Dose Admin Sodium Chloride 1,000 mls @ 999 mls/hr 05/11/23 00:39 05/11/23 00:54 Ns IVCONT 05/11/23 01:39 999 mls/hr .Q1H1M ONE Administration Ondansetron HCl 4 mg 05/11/23 00:39 05/11/23 00:53 Ondansetron Hcl 4 Mg/2 Ml Vial IVPUSH 03/17/24 00:40 4 mg ONCE ONE Administration Medical Decision Making Medical Decision Making [facility] Narrative: -my interpretation of EKG: Sinus tachycardia, heart rate 131, nonspecific ST depression in V4 V5 V6, nonspecific T-wave inversion in lead 3 and AVF, QTC 386 -EKG from June of 2021 shows T-wave inversions in the same leads as mentioned above and T-wave inversions. No significant EKG changes from 2021 -my interpretation of labs: Normal hematology, chemistry at baseline. LFTs chronically elevated secondary to ETOH, today ETOH level 399 -my interpretation of chest x-ray: No pneumonia -patient given IV fluids, heart rate in the low 100s. Patient getting more fluids -plan: Metabolize to freedom and discharge when sober. -physician observation started at 02:20 Differential Diagnosis Differential Diagnoses: The differential diagnosis associated with the presentation includes (COVID, influenza, viral URI, alcohol intoxication, polysubstance abuse) Admission/Observation Consideration of admission/observation: Escalation of care including admission/observation considered (Given patient's presentation labs, admission considered) Lab Data [facility] Lab Attestation statement: I reviewed the patient's lab results. 05/10/23 23:50 05/10/23 23:50 Labs: Lab Results 05/10/23 Range/Units 23:50 WBC 8.0 (4.8-10.8) X10*3/uL RBC 5.54 D (4.60-5.80) X10*6/uL Hgb 17.7 D (14.0-18.0) g/dl Hct 51.6 D (42.0-52.0) % MCV 93.1 (80.0-98.0) fL MCH 31.9 (27.0-33.0) pg MCHC 34.3 (31.0-36.0) g/dl RDW 14.1 (11.0-16.0) % Plt Count 267 D (160-400) X10*3/uL MPV 9.2 L (9.4-12.4) fL Immature Gran % (Auto) 0.3 (0.0-0.4) % Neut % (Auto) 53.4 (45-73) % Lymph % (Auto) 39.2 (20-40) % Moody % (Auto) 6.5 (2-11) % Eos % (Auto) 0.1 (0-4) % Baso % (Auto) 0.5 (0-2) % Lymph # (Auto) 3.1 (1.2-4.9) X10*3/uL Moody # (Auto) 0.5 (0.1-1.2) X10*3/uL Eos # (Auto) 0.0 (0.0-0.4) X10*3/uL Baso # (Auto) 0.0 (0.0-0.2) X10*3/uL Abs Immat Gran (auto) 0.02 (0.00-0.03) X10*3/uL Absolute Neuts (auto) 4.2 (2.0-8.3) x10*3/uL Absolute Nucleated RBC 0.000 (0.0-0.012) X10*3/uL Nucleated RBC % (auto) 0.0 (0.0-0.2) /100WBC Sodium 140 (135-145) mmol/L Potassium 3.3 (3.3-5.1) mmol/L Chloride 98 (96-108) mmol/L Carbon Dioxide 26 (22-29) mmol/L Anion Gap 19 (12-20) BUN 4 L (9-16) mg/dL Creatinine 0.87 (0.5-1.4) mg/dL Estim Creat Clear Calc 167.4 Estimated GFR > 60 Random Glucose 199 H (60-115) mg/dL Calcium 9.0 (8.4-10.2) mg/dL Magnesium 2.0 (1.6-2.6) mg/dL Total Bilirubin 0.7 (0.0-1.0) mg/dL AST 155 H (5-37) U/L ALT 70 H (0-40) U/L Alkaline Phosphatase 174 H (39-117) U/L Total Protein 8.9 H (6.5-8.0) g/dL Albumin 4.3 (3.5-5.0) g/dL Ethyl Alcohol 399 H* mg/dL COVID-19 ([facility]) Negative (Negative) COVID-19 Clin Com See Note Influenza Type A (VEDA) Negative (Negative) Influenza Type B (VEDA) Negative (Negative) Influenza A & B Note See Note Independent Interpretation I performed an independent interpretation of an: Plain X-Ray Radiology Impression Discussion of test interpretation with radiology: I have reviewed the radiologist's reading. Radiologist Impression: FINDINGS: No significant abnormality is noted involving the heart, lungs, mediastinum, bony thorax or soft tissues. XR/XR chest 1V IMPRESSION: Unremarkable examination. Critical Care Time Critical Care Time Critical Care Time: Yes Total Critical Care Time: 60 Attestation: I have personally provided critical care time. Time includes review of lab data, radiology results, discussion with consultants, and monitoring for potential decompensation. Intervention performed as documented. Discharge Plan Discharge Clinical Impression: Viral URI, Alcohol intoxication, Acute dehydration Patient Disposition: Still a Patient Instructions: Abuse of Alcohol (ED), Viral Syndrome (ED) Prescriptions: No Action methadone 10 mg/mL Concentrate 120 mg PO DAILY omeprazole 20 mg Capsule,Delayed Release(Dr/Ec) 20 mg PO DAILY@0630 Qty: 30 0RF
[2023-05-11] MEDS: ondansetron HCL 4 MG/2 ML VIAL IVPUSH ×2 (00:53→03:44)
[2023-05-11] MEDS: 0.9 % Sodium Chloride 1,000 ML 999 ML IVCONT ×2 (00:54→02:30)
--- NOTE | 2023-05-11 03:19 | PC.NURSE ---
pt O2 sat drops down to 80-88% when he falls asleep, denies sleep apnea history. this RN and PCT attempted to put nasal cannula on pt however pt refused and said i dont need that O2 up to 90-94% when awake and talking. MD aware MD ordering CT scan to r/o PE as pt is hypoxic and tachycardic
[2023-05-11] MEDS: diphenhydrAMINE HCL 50 MG/ML VIAL IVPUSH (03:44)
[2023-05-11] MEDS: LORazepam 2 MG/ML VIAL IVPUSH (03:44)
[2023-05-11 03:57] LABS: Amphetamine Screen Urine Not Detected (Not Detect); Barbiturates, Urine Not Detected (Not Detect); Benzodiazepines Screen Urine Not Detected (Not Detect); Cannabinoid Screen Urine Not Detected (Not Detect); Cocaine Screen Urine Not Detected (Not Detect); Fentanyl, urine POSITIVE (Not Detect); Opiate Screen Urine Not Detected (Not Detect); Phencyclidine Screen Urine Not Detected (Not Detect)
[2023-05-11] MEDS: iohexoL 350 MG/ML 100 ML INFUS..BTL 65 ML IV (04:05)
--- NOTE | 2023-05-11 04:29 | PC.NURSE ---
pt agreeable to 2L O2 via NC.
--- NOTE | 2023-05-11 08:13 | ED_ITS ---
HPI - General Adult General Chief complaint: General Medical Stated complaint: dehydrated Time Seen by Provider: 05/11/23 00:34 Source: patient Mode of arrival: ambulatory Limitations: no limitations Related Data Home Medications Medication Instructions Recorded Confirmed methadone 10 mg/mL oral concentrate 120 mg PO DAILY 09/16/22 Previous Rx's Medication Instructions Recorded omeprazole 20 mg capsule,delayed 20 mg PO DAILY@0630 #30 caps 09/19/22 release Allergies Allergy/AdvReac Type Severity Reaction Status Date / Time No Known Allergies Allergy Verified 05/10/23 23:30 [facility] Past Medical History Medical History Fatty liver History of cocaine abuse ETOH abuse Social History Social History Household Members: Family Housing: House Do you presently have visiting nurse or other home services: No Alcohol intake: current Alcohol intake frequency: 3 or more drinks per day Alcohol type: hard liquor Comment: pt refused bed/chair alarm despite fall risk education given Patient Tobacco Use Status: Never used Tobacco Use of substances other than those prescribed or required for medical reasons: No Substance Use Type: Heroin Advance Directives: No Advance Directives Information Provided: No service: No Current occupational status: unemployed Physical Exam ED Vital Signs: Vital Signs - 24 hr 05/10/23 23:30 05/11/23 00:50 05/11/23 02:08 Temperature 98.4 F 98.3 F Pulse Rate 136 H 138 H 107 H Respiratory Rate 20 15 Blood Pressure 153/110 H 168/111 H 128/82 Pulse Oximetry 94 94 95 Oxygen Delivery Method Room Air Room Air Room Air Oxygen Flow Rate 05/11/23 04:22 05/11/23 04:23 05/11/23 05:49 Temperature 98.0 F Pulse Rate 108 H 112 H Respiratory Rate 14 13 Blood Pressure 139/89 162/104 H Pulse Oximetry 87 L 93 97 Oxygen Delivery Method Room Air Nasal Cannula Nasal Cannula Oxygen Flow Rate 2 2 05/11/23 06:12 Temperature Pulse Rate 108 H Respiratory Rate 12 Blood Pressure 127/82 Pulse Oximetry 96 Oxygen Delivery Method Nasal Cannula Oxygen Flow Rate 2 BMI result Body Mass Index 30.8 Course Reevaluation(s) Reevaluation #1: Patient with history of alcohol use disorder and he had a history of alcoholic withdrawal seizure presented yesterday intoxicated, nurse reported patient appear anxious with tremors complaining multiple symptoms and his CIWA score is 12, patient was evaluated by me labs were reviewed with chronic elevation of LFTs, CIWA score was 16 patient was started on phenobarb, discussed with Dr. Mcneal to admit the patient. Time: 08:13 Medications Administered Discontinued Medications Generic Name Dose Route Start Last Admin Trade Name Freq PRN Reason Stop Dose Admin Diphenhydramine HCl 50 mg 05/11/23 03:39 05/11/23 03:44 Diphenhydramine Hcl 50 Mg/Ml Vial IVPUSH 05/11/23 03:40 50 mg ONCE ONE Administration Sodium Chloride 1,000 mls @ 999 mls/hr 05/11/23 00:39 05/11/23 02:30 Ns IVCONT 05/11/23 01:39 Infused .Q1H1M ONE Infusion Sodium Chloride 1,000 mls @ 999 mls/hr 05/11/23 02:08 05/11/23 03:23 Ns IVCONT 05/11/23 03:08 Infused .Q1H1M ONE Infusion Iohexol 65 ml 05/11/23 04:04 05/11/23 04:05 Iohexol 350 Mg/Ml 100 Ml Infus..Btl IV 05/11/23 04:05 65 ml ONCE ONE Administration Lorazepam 2 mg 05/11/23 03:39 05/11/23 03:44 Lorazepam 2 Mg/Ml Vial IVPUSH 05/11/23 03:40 2 mg ONCE ONE Administration Ondansetron HCl 4 mg 05/11/23 00:39 05/11/23 00:53 Ondansetron Hcl 4 Mg/2 Ml Vial IVPUSH 05/11/23 00:40 4 mg ONCE ONE Administration Ondansetron HCl 4 mg 05/11/23 03:39 05/11/23 03:44 Ondansetron Hcl 4 Mg/2 Ml Vial IVPUSH 05/11/23 03:40 4 mg ONCE ONE Administration Medical Decision Making Lab Data 05/10/23 23:50 05/10/23 23:50 Labs: Lab Results 05/10/23 05/11/23 Range/Units 23:50 03:42 WBC 8.0 (4.8-10.8) X10*3/uL RBC 5.54 D (4.60-5.80) X10*6/uL Hgb 17.7 D (14.0-18.0) g/dl Hct 51.6 D (42.0-52.0) % MCV 93.1 (80.0-98.0) fL MCH 31.9 (27.0-33.0) pg MCHC 34.3 (31.0-36.0) g/dl RDW 14.1 (11.0-16.0) % Plt Count 267 D (160-400) X10*3/uL MPV 9.2 L (9.4-12.4) fL Immature Gran % (Auto) 0.3 (0.0-0.4) % Neut % (Auto) 53.4 (45-73) % Lymph % (Auto) 39.2 (20-40) % Brooks % (Auto) 6.5 (2-11) % Eos % (Auto) 0.1 (0-4) % Baso % (Auto) 0.5 (0-2) % Lymph # (Auto) 3.1 (1.2-4.9) X10*3/uL Brooks # (Auto) 0.5 (0.1-1.2) X10*3/uL Eos # (Auto) 0.0 (0.0-0.4) X10*3/uL Baso # (Auto) 0.0 (0.0-0.2) X10*3/uL Abs Immat Gran (auto) 0.02 (0.00-0.03) X10*3/uL Absolute Neuts (auto) 4.2 (2.0-8.3) x10*3/uL Absolute Nucleated RBC 0.000 (0.0-0.012) X10*3/uL Nucleated RBC % (auto) 0.0 (0.0-0.2) /100WBC Sodium 140 (135-145) mmol/L Potassium 3.3 (3.3-5.1) mmol/L Chloride 98 (96-108) mmol/L Carbon Dioxide 26 (22-29) mmol/L Anion Gap 19 (12-20) BUN 4 L (9-16) mg/dL Creatinine 0.87 (0.5-1.4) mg/dL Estim Creat Clear Calc 167.4 Estimated GFR > 60 Random Glucose 199 H (60-115) mg/dL Calcium 9.0 (8.4-10.2) mg/dL Magnesium 2.0 (1.6-2.6) mg/dL Total Bilirubin 0.7 (0.0-1.0) mg/dL AST 155 H (5-37) U/L ALT 70 H (0-40) U/L Alkaline Phosphatase 174 H (39-117) U/L Total Protein 8.9 H (6.5-8.0) g/dL Albumin 4.3 (3.5-5.0) g/dL Urine Opiates Screen Not Detected (Not Detect) Urine Fentanyl Screen POSITIVE H (Not Detect) Ur Barbiturates Screen Not Detected (Not Detect) Ur Phencyclidine Scrn Not Detected (Not Detect) Ur Amphetamines Screen Not Detected (Not Detect) U Benzodiazepines Scrn Not Detected (Not Detect) Urine Cocaine Screen Not Detected (Not Detect) U Marijuana (THC) Screen Not Detected (Not Detect) Ethyl Alcohol 399 H* mg/dL COVID-19 ([facility]) Negative (Negative) COVID-19 Clin Com See Note Influenza Type A (VEDA) Negative (Negative) Influenza Type B (VEDA) Negative (Negative) Influenza A & B Note See Note Discharge Plan Discharge Clinical Impression: Viral URI, Alcohol intoxication, Acute dehydration, Alcohol withdrawal Patient Disposition: Admitted As Inpatient Instructions: Abuse of Alcohol (ED), Viral Syndrome (ED) Prescriptions: No Action methadone 10 mg/mL Concentrate 120 mg PO DAILY omeprazole 20 mg Capsule,Delayed Release(Dr/Ec) 20 mg PO DAILY@0630 Qty: 30 0RF
--- NOTE | 2023-05-11 08:34 | PHA.MEDREC ---
Pharmacy Consult ? Medication Reconciliation Pharmacy has completed the medication reconciliation. spoke with patient. He reports methadone 120mg last taken yesterday morning and gets it from [facility] in [place]. He reports no other home medications.
[2023-05-11] MEDS: PHENobarbitaL sodium 130 MG/ML IM ONCE 347.1 MG IM (08:40)
--- NOTE | 2023-05-11 09:53 | P.HPHOSP_ITS ---
History of Present Illness Date of Service: 05/11/23 Chief Complaint: EtOH withdrawal 32yo M with AUD with hx of withdrawal seizures, OUD on methadone 120 mg/d, and untreated HCV presenting with diffuse body aches, cough for 4 days, and EtOH intoxication with serum EtOH 399. Utox positive for fentanyl. LFTS with AST 155, ALT 70. Became tremulous, CIWA 16, hypertensive to 168/111 and tachycardic at 138. EKG showing sinus tachycardia with ST depressions in V4-V6 similar to prior EKG 07/09/21. Mildly hypoxic with SaO2 [address] angio negative for PE or PNA. Flu + Covid-19 negative. Started on phenobarbital taper and given 2L IV NS. Review of Systems 2 Review of Systems: Yes all other systems are reviewed and are negative PMFSH Medical History Fatty liver History of cocaine abuse ETOH abuse Social History Household Members: Family Housing: House Do you presently have visiting nurse or other home services: No Alcohol intake: current Alcohol intake frequency: 3 or more drinks per day Alcohol type: hard liquor Comment: pt refused bed/chair alarm despite fall risk education given Patient Tobacco Use Status: Never used Tobacco Use of substances other than those prescribed or required for medical reasons: No Substance Use Type: Heroin Advance Directives: No Advance Directives Information Provided: No service: No Current occupational status: unemployed Meds Allergies Allergy/AdvReac Type Severity Reaction Status Date / Time No Known Allergies Allergy Verified 05/10/23 23:30 Active Medications: Current Medications Acetaminophen (Acetaminophen 325 Mg Tablet) 650 mg PO Q6H PRN PRN Reason: Pain, Mild (Pain Scale 1-3) Folic Acid (Folic Acid 1 Mg Tablet) 1 mg PO DAILY [facility] Thiamine HCl 100 mg/ Sodium (Chloride) 101 mls @ 202 mls/hr IV DAILY [facility] Multivitamins/Vitamin C (Multivitamin Tablet) 1 tab PO DAILY [facility] Ondansetron HCl (Ondansetron Hcl 4 Mg/2 Ml Vial) 4 mg IVPUSH Q8H PRN PRN Reason: Nausea and Vomiting Pharmacy Consult (Consult Rx Etoh Phenob Im/Po) 1 each MISCELLANE ONCE PRN; Protocol PRN Reason: Consult order Phenobarbital (Phenobarbital 30 Mg Tablet) 60 mg PO BID [facility]; Protocol Stop: 05/13/23 09:01 Phenobarbital (Phenobarbital 30 Mg Tablet) 30 mg PO BID [facility] Stop: 05/15/23 09:01 Phenobarbital (Phenobarbital 30 Mg Tablet) 30 mg PO DAILY [facility]; Protocol Stop: 05/17/23 09:01 Phenobarbital Sodium (Phenobarbital Sodium 130 Mg/Ml Vial Im Q3hx2) 260 mg IM Q3H [facility]; Protocol Stop: 05/11/23 15:01 Sodium Chloride (0.9 % Sodium Chloride Flush 3 Ml Syringe) 3 ml IVFLUSH QSHIFT [facility] Home Medications Medication Instructions Recorded Confirmed Last Taken Type methadone 10 mg/mL oral concentrate 120 mg PO DAILY 09/16/22 05/10/23 History Physical Exam 2 Vital Signs and Narrative: Vital Signs: Last Vital Signs Temp 98.0 F 05/11/23 05:49 Pulse 108 H 05/11/23 06:12 Resp 12 05/11/23 06:12 BP 127/82 05/11/23 06:12 Pulse Ox 96 05/11/23 06:12 O2 Del Method Nasal Cannula 05/11/23 06:12 O2 Flow Rate 2 05/11/23 06:12 BMI result Body Mass Index 30.8 Gen: tremulous HEENT: sclera anicteric, moist mucus membranes Neck: supple Lungs: clear to auscultation bilaterally Heart: regular, tachycardic, no murmurs Abd: soft, non-tender, non-distended Ext: no edema Skin: warm/well-perfused Neuro: alert and oriented x3, no focal findings Psych: anxious Results Labs 05/10/23 23:50 05/10/23 23:50 Labs: Laboratory Results - last 24 hr 05/10/23 05/11/23 23:50 03:42 MCV 93.1 MCH 31.9 MCHC 34.3 RDW 14.1 Plt Count 267 D MPV 9.2 L Immature Gran % (Auto) 0.3 Neut % (Auto) 53.4 Lymph % (Auto) 39.2 [place] % (Auto) 6.5 Eos % (Auto) 0.1 Baso % (Auto) 0.5 Lymph # (Auto) 3.1 [place] # (Auto) 0.5 Eos # (Auto) 0.0 Baso # (Auto) 0.0 Abs Immat Gran (auto) 0.02 Absolute Neuts (auto) 4.2 Absolute Nucleated RBC 0.000 Nucleated RBC % (auto) 0.0 Anion Gap 19 Estim Creat Clear Calc 167.4 Estimated GFR > 60 Random Glucose 199 H Calcium 9.0 Magnesium 2.0 Total Bilirubin 0.7 AST 155 H ALT 70 H Alkaline Phosphatase 174 H Total Protein 8.9 H Albumin 4.3 Urine Opiates Screen Not Detected Urine Fentanyl Screen POSITIVE H Ur Barbiturates Screen Not Detected Ur Phencyclidine Scrn Not Detected Ur Amphetamines Screen Not Detected U Benzodiazepines Scrn Not Detected Urine Cocaine Screen Not Detected U Marijuana (THC) Screen Not Detected Ethyl Alcohol 399 H* COVID-19 ([facility]) Negative COVID-19 Clin Com See Note Influenza Type A ([facility]) Negative Influenza Type B ([facility]) Negative Influenza A & B Note See Note Imaging Radiologist's Impressions: Impressions Chest X-Ray 05/11/23 01:49 IMPRESSION: Unremarkable examination. Chest CTA 05/11/23 04:15 IMPRESSION: 1. No evidence of pulmonary embolism. 2. Apparent healing fractures of the anterior right fifth, sixth and seventh as well as left fifth and sixth ribs. VTE: negative. Assessment and Plan (1) Alcohol withdrawal: Status: Acute Plan 32yo M with AUD with hx of withdrawal seizures, OUD on methadone 120 mg/d, and untreated HCV presenting with URI and EtOH withdrawal high-risk EtOH withdrawal AUD - admit to telemetry, give phenobarbital taper, give thiamine/folate/MV, consult Addiction Med AHRF due to URI - wean O2 as tolerated, check respiratory pathogen panel EtOH hepatitis - mild; monitor LFTs; no steroids indicated OUD - resume methadone; re-screen HCV viral load + HIV VTE prophylaxis - SCDs, early ambulation dispo - eventual home code status - full I anticipate that the patient will stay at least 2 midnights as an inpatient in the hospital due to the above reasons. It is neither reasonable nor safe to care for them in a less acute setting. Quality Stroke Does the patient have a stroke diagnosis?: No VTE Prior VTE?: No VTE Risk Level:: Medical - moderate - high VTE Device Contraindication: N/A - Device Ordered VTE Drug Contraindication: Treatment Not Indicated
--- NOTE | 2023-05-11 10:43 | MHC.RECOVRN ---
Met with pt in ED1 after consult placed to Addiction Medicine for alcohol and fentanyl use. Pt had presented to the ED reporting body aches, n/v, SOB, nasal congestion, as well as daily alcohol use. Last drink 10+ hours ago prior to arrival. ETOH level 399 upon presentation. CIWA 9 at 0748 this morning. Pt laying in bed, awake, alert, easily engages in conversation, appears uncomfortable. Pt slightly diaphoretic, restless, watery eyes. Pt reports alcohol use, 30 nips Fireball daily x 2 weeks. Prior to that pt reports 6-7 nips daily after work. In regards to opioids, pt currently on methadone, 120 mg daily through [facility] in [place]. Pt received one take home dose since [facility] is closed on Sundays. Pt reports occasional fentanyl use, 1 or 2 bags every couple weeks, IV. Pt reports methadone has been helpful and has significantly decreased use. Pt currently awaiting today's methadone dose, reporting withdrawal symptoms. Pt denies questions or concerns at this time. Will continue to follow.
--- NOTE | 2023-05-11 10:50 | HE.PHANOTE ---
Methadone verificaiton Pharmacy has received the methadone verificaiton from [facility]. Patient last received methadone 120 mg from [facility] on 05/09 with take home bottles reported by kathy Logan at the clinic. Patient reports last dose was on 05/10/23.
[2023-05-11] MEDS: PHENobarbitaL sodium 130 MG/ML VIAL IM Q3Hx2 260 MG IM ×2 (11:47→14:45)
[2023-05-11] MEDS: methADONE HCl 20 MG/2 ML ORAL.CONC 120 MG PO (11:47)
[2023-05-11] MEDS: Thiamine HCL 100 MG in 0.9 % Sodium Chloride 100 ML 202 MG IV (11:48)
[2023-05-11] MEDS: Folic Acid 1 MG TABLET PO (11:48)
[2023-05-11] MEDS: Multivitamin TABLET 1 TAB PO (11:48)
[2023-05-11 12:26] LABS: Adenovirus PCR Not Detected (Not Detect.); Bordetella parapertussis PCR Not Detected (Not Detect.); Bordetella pertussis PCR Not Detected (Not Detect.); Chlamydia pneumoniae PCR Not Detected (Not Detect.); Coronavirus 229E PCR Not Detected (Not Detect.); Coronavirus HKU1 PCR Not Detected (Not Detect.); Coronavirus NL63 PCR Not Detected (Not Detect.); Coronavirus OC43 PCR Not Detected (Not Detect.); Human metapneumovirus PCR Not Detected (Not Detect.); Influenza A PCR Not Detected (Not Detect.); Influenza B PCR Not Detected (Not Detect.); Mycoplasma pneumoniae PCR Not Detected (Not Detect.); Parainfluenza 1 PCR Not Detected (Not Detect.); Parainfluenza 2 PCR Not Detected (Not Detect.); Parainfluenza 3 PCR Not Detected (Not Detect.); Parainfluenza 4 PCR Not Detected (Not Detect.); RSV PCR Not Detected (Not Detect.); Rhino/Enterovirus PCR Detected (Not Detect.)
[2023-05-11 12:46] LABS: SARS-CoV-2 PCR Not Detected (Not Detect.)
[2023-05-11] MEDS: Lactated Ringers 1,000 ML 125 ML IVCONT (12:56)
[2023-05-11] MEDS: hydrOXYzine HCL 50 MG TABLET PO (13:05)
[2023-05-11] MEDS: PHENobarbitaL 30 MG TABLET 60 MG PO (20:19)
[2023-05-11] MEDS: PHENobarbitaL sodium 130 MG/ML VIAL IM (21:37)
[2023-05-12] MEDS: 0.9 % Sodium Chloride Flush 3 ML SYRINGE IVFLUSH ×2 (00:17→09:40)
[2023-05-12] MEDS: Acetaminophen 325 MG TABLET 650 MG PO ×2 (00:20→21:52)
[2023-05-12 03:53] VITALS: BP 151/89; PULSE 84; RESP 18; TEMP 36.3; O2SAT 94
[2023-05-12 07:25] LABS: INTERNATIONAL NORM RATIO 1.4 (0.9-1.1); Prothrombin Time 17.1 SEC (11.1-13.3)
[2023-05-12 07:26] LABS: Hematocrit 45.2 % (42.0-52.0); Hemoglobin 15.3 g/dl (14.0-18.0); Mean Corpuscular HGB Conc 33.8 g/dl (31.0-36.0); Mean Corpuscular Hemoglobin 32.1 pg (27.0-33.0); Mean Corpuscular Volume 94.8 fL (80.0-98.0); Mean Platelet Volume 9.8 fL (9.4-12.4); Platelet Count 124 X10*3/uL (160-400); Red Blood Count 4.77 X10*6/uL (4.60-5.80); Red Cell Distribution Width 13.6 % (11.0-16.0); White Blood Count 3.9 X10*3/uL (4.8-10.8)
[2023-05-12 07:29] VITALS: BP 138/90; PULSE 84; RESP 20; TEMP 36.3; O2SAT 94
[2023-05-12 07:47] LABS: Alanine Aminotransferase 45 U/L (0-40); Albumin Level 3.6 g/dL (3.5-5.0); Alkaline Phosphatase 134 U/L (39-117); Anion Gap 13 (12-20); Aspartate Amino Transferase 91 U/L (5-37); Bilirubin Total 1.9 mg/dL (0.0-1.0); Blood Urea Nitrogen 6 mg/dL (9-16); Carbon Dioxide 35 mmol/L (22-29); Chloride 93 mmol/L (96-108); Creatinine Clr Calc Pharmacy 209.2; Estimated Glomerular Filt Rate > 60; Glucose Random 81 mg/dL (60-115); Magnesium 1.5 mg/dL (1.6-2.6); Potassium 3.8 mmol/L (3.3-5.1); Sodium 137 mmol/L (135-145); Total Protein 7.2 g/dL (6.5-8.0)
[2023-05-12 08:17] LABS: HIV AB/AG Nonreactive (Nonreactive); HIV Num 1 0.06 S/CO (0.00-0.99)
[2023-05-12] MEDS: methADONE HCl 20 MG/2 ML ORAL.CONC 120 MG PO (09:39)
[2023-05-12] MEDS: Thiamine HCL 100 MG in 0.9 % Sodium Chloride 100 ML 202 MG IV (09:39)
[2023-05-12] MEDS: PHENobarbitaL 30 MG TABLET 60 MG PO ×2 (09:40→21:45)
[2023-05-12] MEDS: Folic Acid 1 MG TABLET PO (09:40)
[2023-05-12] MEDS: Multivitamin TABLET 1 TAB PO (09:40)
--- NOTE | 2023-05-12 09:40 | MHC.CM.PN ---
CM met with pt while he was very sleepy, he is independent, no home health services, he is able to find a ride home at [place]. He confirmed PCP: Taras Antunez in [place]. CM asked if he has a HCP and if he wanted to complete form, he does not have one and declined to complete one. CM will follow and assist as needed with DC planning.
--- NOTE | 2023-05-12 11:01 | MHC.IC ---
Rhinovirus is Droplet and Standard precautions per CDC Appendix A.
[2023-05-12 11:10] VITALS: BP 154/95; PULSE 87; RESP 20; TEMP 36.4; O2SAT 95
--- NOTE | 2023-05-12 15:05 | PM.EVENT ---
Event Note Date of Service: 05/12/23 Event Note: Addiction consult placed for patient admitted with AUD in acute withdrawal habitat management coordinator note reviewed and case discussed, patient expresing interest in restarting Campral as he found it beneficial in the past. Plan: -restart Campral prior to d/c (once withdrawal treated) -habitat management coordinator to discuss ongoing care once d/c Time Spent With Patient Time: Total time managing care of this patient today ____ minutes.
[2023-05-12 15:38] VITALS: BP 145/90; PULSE 96; RESP 18; TEMP 36.6; O2SAT 97
--- NOTE | 2023-05-12 15:44 | MHC.RECOVRN ---
Met with pt in 461 to follow up and provide support. Pt laying in bed, awake, alert, engages in conversation. Pt reports feeling okay. Discussed recovery support options and resources. Pt has taken acamprosate in the past for a couple weeks and found it helpful, would like to restart medication while at [facility]. Pt also interested in recovery coordinator. Pt denies other questions or concerns for t/w. Discussed with Lore Huitron APRN. Plan to initiate Campral once pt is more stable. 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
--- NOTE | 2023-05-12 15:45 | P.PNIM_ITS ---
Subjective Subjective Date of Service: 05/12/23 Interval History: Doing well overnight with phenobarb; CIWA 4-6 Review of Systems Denies chest pain Denies shortness of breath Denies nausea vomiting diarrhea Denies fever chills Physical Exam 2 Vital Signs: Vital Signs: Last Vital Signs Temp 97.9 F 05/12/23 15:38 Pulse 96 05/12/23 15:38 Resp 18 05/12/23 15:38 BP 145/90 H 05/12/23 15:38 Pulse Ox 97 05/12/23 15:38 O2 Del Method Room Air 05/12/23 15:38 O2 Flow Rate 2 05/11/23 14:51 BMI result Body Mass Index 32.1 Const: Other: Awake alert no acute distress Resp: Other: Clear to auscultation ; no rales rhonchi wheezes Cardio: Other: No S4; positive S1-S2; S3 murmurs rubs or gallops GI: Other: Soft nontender nondistended normoactive bowel sounds Extrem: Other: No edema bilaterally Objective Data Active Medications Acetaminophen (Acetaminophen 325 Mg Tablet) 650 mg PO Q6H PRN PRN Reason: Pain, Mild (Pain Scale 1-3) Last Admin: 05/12/23 00:20 Dose: 650 mg Documented By: MIKE Folic Acid (Folic Acid 1 Mg Tablet) 1 mg PO DAILY [facility] Last Admin: 05/12/23 09:40 Dose: 1 mg Documented By: INÉS Thiamine HCl 100 mg/ Sodium (Chloride) 101 mls @ 202 mls/hr IV DAILY [facility] Last Infusion: 05/12/23 10:20 Dose: Infused Documented By: INÉS Methadone HCl (Methadone Hcl 20 Mg/2 Ml Oral.Conc) 120 mg PO DAILY [facility] Last Admin: 05/12/23 09:39 Dose: 120 mg Documented By: INÉS Multivitamins/Vitamin C (Multivitamin Tablet) 1 tab PO DAILY [facility] Last Admin: 05/12/23 09:40 Dose: 1 tab Documented By: INÉS Ondansetron HCl (Ondansetron Hcl 4 Mg/2 Ml Vial) 4 mg IVPUSH Q8H PRN PRN Reason: Nausea and Vomiting Pharmacy Consult (Consult Rx Etoh Phenob Im/Po) 1 each MISCELLANE ONCE PRN; Protocol PRN Reason: Consult order Phenobarbital (Phenobarbital 30 Mg Tablet) 60 mg PO BID [facility]; Protocol Stop: 05/13/23 09:01 Last Admin: 05/12/23 09:40 Dose: 60 mg Documented By: INÉS Phenobarbital (Phenobarbital 30 Mg Tablet) 30 mg PO BID [facility] Stop: 05/15/23 09:01 Phenobarbital (Phenobarbital 30 Mg Tablet) 30 mg PO DAILY [facility]; Protocol Stop: 05/17/23 09:01 Sodium Chloride (0.9 % Sodium Chloride Flush 3 Ml Syringe) 3 ml IVFLUSH QSHIFT [facility] Last Admin: 05/12/23 15:39 Dose: Not Given Documented By: INÉS Non-Admin Reason: Previously Administered Labs 05/12/23 06:41 05/12/23 06:41 Labs: Laboratory Results - last 24 hr 05/12/23 06:41 MCV 94.8 MCH 32.1 MCHC 33.8 RDW 13.6 Plt Count 124 L D MPV 9.8 Absolute Nucleated RBC 0.000 Nucleated RBC % (auto) 0.0 PT 17.1 H INR 1.4 H Anion Gap 13 Estim Creat Clear Calc 209.2 Estimated GFR > 60 Random Glucose 81 Calcium 9.0 Magnesium 1.5 L Total Bilirubin 1.9 H AST 91 H ALT 45 H Alkaline Phosphatase 134 H Total Protein 7.2 Albumin 3.6 HIV 1&2 Ab/P24 Ag 4thGn Nonreactive Assessment and Plan (1) Alcohol withdrawal: Status: Acute Plan 32yo M with AUD with hx of withdrawal seizures, OUD on methadone 120 mg/d, and untreated HCV presenting with URI and EtOH withdrawal 1.EtOH withdrawal -thiamine/folate/MV, -phenobarb protocol -observe on CIWA 2.URI -no O2 requirement currently -respiratory panel positive for rhino virusl 3.EtOH hepatitis -stable. Follow clinically 4.OUD - resume methadone VTE prophylaxis - SCDs, early ambulation Full Lovenox Requires ongoing hospitalization to complete phenobarb protocol for alcohol withdrawal. High risk for outpatient therapy at this time Quality Stroke Does the patient have a stroke diagnosis?: No VTE Prior VTE?: No VTE Risk Level:: Medical - moderate - high VTE Device Contraindication: N/A - Device Ordered VTE Drug Contraindication: Treatment Not Indicated
[2023-05-12] MEDS: PHENobarbitaL sodium 130 MG/ML VIAL 347 MG IM (16:09)
[2023-05-12 19:34] VITALS: BP 128/81; PULSE 94; RESP 18; TEMP 36.6; O2SAT 92
--- NOTE | 2023-05-12 21:09 | MHC.RECOVSUP ---
? Reason for consult Recovery Support o Current location: [facility] o Identified substance use concern: Alcohol - Support ? Intervention: o Community resources provided o Harm reduction discussion ? Plan: o Patient to follow up with [facility] after discharge ? Additional information: Met with Patient and we talk about recovery and different pathways.. We talk about Harm reduction and MAT, and the recovery centers.
[2023-05-12 23:34] VITALS: BP 118/75; PULSE 93; RESP 18; TEMP 37; O2SAT 93
[2023-05-13] MEDS: 0.9 % Sodium Chloride Flush 3 ML SYRINGE IVFLUSH ×2 (00:12→15:50)
[2023-05-13 03:43] VITALS: BP 133/82; PULSE 93; RESP 18; TEMP 36.9; O2SAT 92
[2023-05-13 07:17] VITALS: BP 112/75; PULSE 88; RESP 16; TEMP 36.6; O2SAT 92
[2023-05-13] MEDS: Thiamine HCL 100 MG in 0.9 % Sodium Chloride 100 ML 202 MG IV (07:40)
[2023-05-13] MEDS: Multivitamin TABLET 1 TAB PO (07:41)
[2023-05-13] MEDS: Folic Acid 1 MG TABLET PO (07:41)
[2023-05-13] MEDS: PHENobarbitaL 30 MG TABLET 60 MG PO (07:41)
[2023-05-13] MEDS: methADONE HCl 20 MG/2 ML ORAL.CONC 120 MG PO (07:41)
[2023-05-13 11:36] VITALS: BP 129/74; PULSE 86; RESP 16; TEMP 36.2; O2SAT 96
--- NOTE | 2023-05-13 15:55 | P.PNIM_ITS ---
Subjective Subjective Date of Service: 05/13/23 Interval History: No interval seizures however CIWA 7 this afternoon Review of Systems Denies chest pain Denies shortness of breath Denies nausea vomiting diarrhea Denies fever chills Physical Exam 2 Vital Signs: Vital Signs: Last Vital Signs Temp 97.2 F 05/13/23 11:36 Pulse 86 05/13/23 11:36 Resp 16 05/13/23 11:36 BP 129/74 05/13/23 11:36 Pulse Ox 96 05/13/23 11:36 O2 Del Method Room Air 05/13/23 11:36 O2 Flow Rate 2 05/11/23 14:51 BMI result Body Mass Index 32.1 Const: Other: Awake alert no acute distress Resp: Other: Clear to auscultation ; no rales rhonchi wheezes Cardio: Other: No S4; positive S1-S2; S3 murmurs rubs or gallops GI: Other: Soft nontender nondistended normoactive bowel sounds Extrem: Other: No edema bilaterally Objective Data Active Medications Acetaminophen (Acetaminophen 325 Mg Tablet) 650 mg PO Q6H PRN PRN Reason: Pain, Mild (Pain Scale 1-3) Last Admin: 05/12/23 21:52 Dose: 650 mg Documented By: MIKE Folic Acid (Folic Acid 1 Mg Tablet) 1 mg PO DAILY [facility] Last Admin: 05/13/23 07:41 Dose: 1 mg Documented By: MANDEEP Thiamine HCl 100 mg/ Sodium (Chloride) 101 mls @ 202 mls/hr IV DAILY [facility] Last Infusion: 05/13/23 08:20 Dose: Infused Documented By: MANDEEP Methadone HCl (Methadone Hcl 20 Mg/2 Ml Oral.Conc) 120 mg PO DAILY [facility] Last Admin: 05/13/23 07:41 Dose: 120 mg Documented By: MANDEEP Multivitamins/Vitamin C (Multivitamin Tablet) 1 tab PO DAILY [facility] Last Admin: 05/13/23 07:41 Dose: 1 tab Documented By: MANDEEP Ondansetron HCl (Ondansetron Hcl 4 Mg/2 Ml Vial) 4 mg IVPUSH Q8H PRN PRN Reason: Nausea and Vomiting Pharmacy Consult (Consult Rx Etoh Phenob Im/Po) 1 each MISCELLANE ONCE PRN; Protocol PRN Reason: Consult order Phenobarbital (Phenobarbital 30 Mg Tablet) 30 mg PO BID [facility] Stop: 05/15/23 09:01 Phenobarbital (Phenobarbital 30 Mg Tablet) 30 mg PO DAILY [facility]; Protocol Stop: 05/17/23 09:01 Phenobarbital Sodium (Phenobarbital Sodium 130 Mg/Ml Vial) 347 mg IM ONCE ONE Stop: 05/13/23 15:54 Sodium Chloride (0.9 % Sodium Chloride Flush 3 Ml Syringe) 3 ml IVFLUSH QSHIFT [facility] Last Admin: 05/13/23 15:50 Dose: 3 ml Documented By: MANDEEP Labs 05/12/23 06:41 05/12/23 06:41 Assessment and Plan (1) Alcohol withdrawal: Status: Acute Plan 32yo M with AUD with hx of withdrawal seizures, OUD on methadone 120 mg/d, and untreated HCV presenting with URI and EtOH withdrawal 1.EtOH withdrawal.. CIWA 7 so afternoon -thiamine/folate/MV, -phenobarb protocol... Additional dose of phenobarb today -observe on CIWA 2.URI -no O2 requirement currently -respiratory panel positive for rhino virusl 3.EtOH hepatitis -stable. Follow clinically 4.OUD - resume methadone VTE prophylaxis - SCDs, early ambulation Full Lovenox Requires ongoing hospitalization to complete phenobarb protocol for alcohol withdrawal. High risk for outpatient therapy at this time Quality Stroke Does the patient have a stroke diagnosis?: No VTE Prior VTE?: No VTE Risk Level:: Medical - moderate - high VTE Device Contraindication: N/A - Device Ordered VTE Drug Contraindication: Treatment Not Indicated
[2023-05-13 16:00] VITALS: BP 135/64; PULSE 90; RESP 16; TEMP 36.7; O2SAT 92
[2023-05-13] MEDS: PHENobarbitaL sodium 130 MG/ML VIAL 347 MG IM (16:08)
[2023-05-13] MEDS: hydrOXYzine HCL 25 MG TABLET PO (16:08)
[2023-05-13 20:00] VITALS: BP 104/73; PULSE 90; RESP 20; TEMP 36.4; O2SAT 95
[2023-05-13] MEDS: PHENobarbitaL 30 MG TABLET PO (20:13)
[2023-05-14] VITALS (7 sets, daily range): BP systolic 112–134; BP diastolic 62–76; PULSE 87–100; RESP 18–20; TEMP 36.1–36.8; O2SAT 91–98
[2023-05-14] MEDS: 0.9 % Sodium Chloride Flush 3 ML SYRINGE IVFLUSH ×3 (00:34→14:31)
[2023-05-14] MEDS: Thiamine HCL 100 MG TABLET PO (09:09)
[2023-05-14] MEDS: Folic Acid 1 MG TABLET PO (09:09)
[2023-05-14] MEDS: Multivitamin TABLET 1 TAB PO (09:09)
[2023-05-14] MEDS: PHENobarbitaL 30 MG TABLET PO ×2 (09:09→20:29)
[2023-05-14] MEDS: methADONE HCl 20 MG/2 ML ORAL.CONC 120 MG PO (09:09)
[2023-05-14 14:53] LABS: HCV Log PCR 2.24 Log IU/mL (NOT DETECTED); HepC Viral Load 172 IU/mL (NOT DETECTED)
--- NOTE | 2023-05-14 15:20 | P.PNIM_ITS ---
Subjective Subjective Date of Service: 05/14/23 Interval History: No additional phenobarb given today. CIWA only to Review of Systems Denies chest pain Denies shortness of breath Denies nausea vomiting diarrhea Denies fever chills Physical Exam 2 Vital Signs: Vital Signs: Last Vital Signs Temp 97.3 F 05/14/23 12:00 Pulse 98 05/14/23 12:00 Resp 20 05/14/23 12:00 BP 124/76 05/14/23 12:00 Pulse Ox 93 05/14/23 12:00 O2 Del Method Room Air 05/14/23 12:00 O2 Flow Rate 2 05/11/23 14:51 BMI result Body Mass Index 32.1 Const: Other: Awake alert no acute distress Resp: Other: Clear to auscultation ; no rales rhonchi wheezes Cardio: Other: No S4; positive S1-S2; S3 murmurs rubs or gallops GI: Other: Soft nontender nondistended normoactive bowel sounds Extrem: Other: No edema bilaterally Objective Data Active Medications Acetaminophen (Acetaminophen 325 Mg Tablet) 650 mg PO Q6H PRN PRN Reason: Pain, Mild (Pain Scale 1-3) Last Admin: 05/12/23 21:52 Dose: 650 mg Documented By: MIKE Folic Acid (Folic Acid 1 Mg Tablet) 1 mg PO DAILY [facility] Last Admin: 05/14/23 09:09 Dose: 1 mg Documented By: JACOB Hydroxyzine HCl (Hydroxyzine Hcl 25 Mg Tablet) 25 mg PO Q6H PRN PRN Reason: anxiety/restlessness Last Admin: 05/13/23 16:08 Dose: 25 mg Documented By: MANDEEP Methadone HCl (Methadone Hcl 20 Mg/2 Ml Oral.Conc) 120 mg PO DAILY [facility] Last Admin: 05/14/23 09:09 Dose: 120 mg Documented By: JACOB Multivitamins/Vitamin C (Multivitamin Tablet) 1 tab PO DAILY [facility] Last Admin: 05/14/23 09:09 Dose: 1 tab Documented By: JACOB Ondansetron HCl (Ondansetron Hcl 4 Mg/2 Ml Vial) 4 mg IVPUSH Q8H PRN PRN Reason: Nausea and Vomiting Pharmacy Consult (Consult Rx Etoh Phenob Im/Po) 1 each MISCELLANE ONCE PRN; Protocol PRN Reason: Consult order Phenobarbital (Phenobarbital 30 Mg Tablet) 30 mg PO BID [facility] Stop: 05/15/23 09:01 Last Admin: 05/14/23 09:09 Dose: 30 mg Documented By: JACOB Phenobarbital (Phenobarbital 30 Mg Tablet) 30 mg PO DAILY [facility]; Protocol Stop: 05/17/23 09:01 Sodium Chloride (0.9 % Sodium Chloride Flush 3 Ml Syringe) 3 ml IVFLUSH QSHIFT [facility] Last Admin: 05/14/23 14:31 Dose: 3 ml Documented By: JACOB Thiamine HCl (Thiamine Hcl 100 Mg Tablet) 100 mg PO DAILY [facility] Last Admin: 05/14/23 09:09 Dose: 100 mg Documented By: JACOB Labs 05/12/23 06:41 05/12/23 06:41 Labs: Laboratory Results - last 24 hr 05/12/23 06:41 Hep C Viral Load 172 H Hep C Viral Load Log 2.24 H Assessment and Plan (1) Alcohol withdrawal: Status: Acute Plan 32yo M with AUD with hx of withdrawal seizures, OUD on methadone 120 mg/d, and untreated HCV presenting with URI and EtOH withdrawal 1.EtOH withdrawal.. CIWA 2 this afternoon -thiamine/folate/MV, -phenobarb protocol... No additional doses given today -observe on CIWA -Campral 660 t.i.d. started at addiction Medicine recommendation 2.URI -no O2 requirement currently -respiratory panel positive for rhino virusl 3.EtOH hepatitis -stable. Follow clinically 4.OUD - resume methadone VTE prophylaxis - SCDs, early ambulation Full Lovenox Requires ongoing hospitalization to complete phenobarb protocol for alcohol withdrawal. High risk for outpatient therapy at this time Quality Stroke Does the patient have a stroke diagnosis?: No VTE Prior VTE?: No VTE Risk Level:: Medical - moderate - high VTE Device Contraindication: N/A - Device Ordered VTE Drug Contraindication: Treatment Not Indicated
--- NOTE | 2023-05-14 15:21 | MHC.CM.PN ---
EMR reviewed and per MD rounds, pt is not medically cleared for D/C due to management of ETOH withdrawal, pt will likely be ready for D/C tomorrow.
[2023-05-14] MEDS: Acamprosate Calcium 333 MG TABLET.DR 666 MG PO ×2 (15:41→20:28)
[2023-05-15] MEDS: 0.9 % Sodium Chloride Flush 3 ML SYRINGE IVFLUSH ×2 (00:19→08:47)
[2023-05-15 03:56] VITALS: BP 123/69; PULSE 80; RESP 18; TEMP 36.6; O2SAT 98
[2023-05-15 07:39] VITALS: BP 126/79; PULSE 80; RESP 20; TEMP 36.1; O2SAT 97
[2023-05-15] MEDS: Folic Acid 1 MG TABLET PO (08:47)
[2023-05-15] MEDS: Thiamine HCL 100 MG TABLET PO (08:47)
[2023-05-15] MEDS: methADONE HCl 20 MG/2 ML ORAL.CONC 120 MG PO (08:47)
[2023-05-15] MEDS: PHENobarbitaL 30 MG TABLET PO (08:47)
[2023-05-15] MEDS: Multivitamin TABLET 1 TAB PO (08:47)
[2023-05-15] MEDS: Acamprosate Calcium 333 MG TABLET.DR 666 MG PO (08:54)
--- NOTE | 2023-05-15 11:06 | PM.DS ---
DS: Providers Provider Date of Service: 05/15/23 Date of admission: 05/11/23 09:50 Date of discharge: 05/15/23 Primary care physician: Taras Antunez MD Consults: 05/11/23 08:29 Addiction Medicine Routine Consulting Provider: Addiction Covering Reason for consultation: etoh mitch Attending physician on discharge: Rodger Martin Discharging clinician: Rebecca Pizano DS: Diagnosis Discharge Diagnosis (1) Alcohol withdrawal: Status: Acute DS: Summary Hospital Course Hospital Course: From H&P on the day of admission 32yo M with AUD with hx of withdrawal seizures, OUD on methadone 120 mg/d, and untreated HCV presenting with diffuse body aches, cough for 4 days, and EtOH intoxication with serum EtOH 399. Utox positive for fentanyl. LFTS with AST 155, ALT 70. Became tremulous, CIWA 16, hypertensive to 168/111 and tachycardic at 138. EKG showing sinus tachycardia with ST depressions in V4-V6 similar to prior EKG 07/09/21. Mildly hypoxic with SaO2 [address] angio negative for PE or PNA. Flu + Covid-19 negative. Started on phenobarbital taper and given 2L IV NS. AUD with alcohol withdrawal Treated with phenobarbital protocol, thiamine/folate/MV. Seen by Addiction Med and was resumed on Campral. Will follow up with methadone clinic for further continuation of campral. AHRF due to URI respiratory pathogen panel positive for rhino virus. Weaned off of supplemental oxygen, currently saturating 97% on room air and ambulating without difficulty. EtOH hepatitis mild, LFTs trending down somewhat; no steroids indicated. Recommend outpatient follow up with PCP thrombocytopenia likely due to etoh use and liver disease. recommend outpatient follow up OUD continued on baseline methadone; re-screen HCV viral load + HIV. h/o untreated HCV - HIV negative, HCV viral load 172. will need outpatient follow up. Time Attestation Total time managing care of this patient today: 38 mintues. Discharge Coordination Time (in mins): 38 Quality: Safe Use of Opioids Does Pt have an Active Cancer Diagnosis on the Problem List?: No Quality: Stroke Does the patient have a stroke diagnosis?: No Physical Exam Vital Signs: Vital Signs: Last Vital Signs Temp 97.0 F 05/15/23 07:39 Pulse 80 05/15/23 07:39 Resp 20 05/15/23 07:39 BP 126/79 05/15/23 07:39 Pulse Ox 97 05/15/23 07:39 O2 Del Method Room Air 05/15/23 07:39 O2 Flow Rate 2 05/11/23 14:51 BMI result Body Mass Index 32.1 Const: General: cooperative, comfortable, no acute distress, alert and awake Nutritional Appearance: overweight Orientation/consciousness: patient oriented x3 Resp: Effort & Inspection: normal respiratory effort, able to speak in complete sentences, no respiratory distress and no use of accessory muscles Cardio: Rate: regular rate GI: Inspection: No distended Palpation (GI): nontender Neuro: General: patient oriented x3, moves all extremities and CN's II-XI intact bilaterally Extrem: General: Yes no pedal edema DS: Data Data Completed and Pending Completed studies during hospitalization [Text1]: Procedures Detoxification Services for Substance Abuse Treatment (09/16/22) Labs on day of discharge: Laboratory Results - last 24 hr 05/12/23 06:41 Hep C Viral Load 172 H Hep C Viral Load Log 2.24 H Discharge Plan Discharge Anticipated Discharge Date/Time: 05/15/23 11:29 Patient Disposition: Home, Self-Care Discharge Diagnosis: alcohol intoxication with alcohol withdrawal Referrals: Taras Antunez MD [Primary Care Provider] - 1 Week Discharge Medications: New acamprosate 333 mg Tablet,Delayed Release (Dr/Ec) 666 mg PO TID 30 Days Qty: 180 0RF folic acid 1 mg Tablet 1 mg PO DAILY 30 Days Qty: 30 0RF thiamine mononitrate (vit B1) 100 mg Tablet 100 mg PO DAILY 30 Days Qty: 30 0RF magnesium oxide 400 mg magnesium tablet 400 mg PO BID 30 Days Qty: 60 0RF Continued methadone 10 mg/mL Concentrate 120 mg PO DAILY Discharge Orders: Discharge Order (Routine); Ordered 05/15/23 Ordered By: Rebecca Pizano Activity on Discharge: As tolerated Stand Alone Forms: Patient Portal Discharge page, Work/School Release Care Plan Goals: see below Health Concerns: AUD with alcohol withdrawal Acute hypoxic respiratory failure due to rhino virus Alcoholic hepatitis Untreated hepatitis-C virus thrombocytopenia Plan of Treatment: Recommend to avoid the use of alcohol Recommend to call and schedule outpatient follow-up appointment with PCP to monitor liver function and platelet levels Rhino virus is self-limiting. Hypoxia resolved Follow-up with methadone clinic to follow up on campral Assessment: see discharge summary Patient Instructions: Abuse of Alcohol (ED), Viral Syndrome (ED)
--- NOTE | 2023-05-15 11:11 | MHC.CM.PN ---
Pt has been medically cleared for DC, he will go home via private transport, self care.
== END 2023-05-15 12:09 | disposition home or self-care (01) | DRG 773 ==
LOC: HO.ED 05-11 08:19 → HO.EDOVER 05-11 10:18 → HO.IMC 05-11 15:26
PROVIDERS: Admitting Provider Family Medicine; Emergency Provider Emergency Medicine; PCP Internal Medicine; Visit Provider Physician Assistant Medical
DX: F10.139 Alcohol abuse with withdrawal, unspecified (principal); F11.20 Opioid dependence, uncomplicated; J96.01 Acute respiratory failure with hypoxia; F10.129 Alcohol abuse with intoxication, unspecified; J06.9 Acute upper respiratory infection, unspecified; B19.20 Unspecified viral hepatitis C without hepatic coma; B97.89 Other viral agents as the cause of diseases classified elsewhere; E86.0 Dehydration; Y90.8 Blood alcohol level of 240 mg/100 ml or more; K70.10 Alcoholic hepatitis without ascites; D69.59 Other secondary thrombocytopenia; Z79.899 Other long term (current) drug therapy
CPT/HCPCS: 36415; 71045; 71275; 80053; 80307; 83735; 85025; 85027; 85610; 87389; 87502; 87522; 87633; 87635; 93005; 99285; J1200; J2060; J2405; J2560; J3411; J7120; Q9967

== ENCOUNTER → 2023-05-10 23:41 | Outpatient (BNV) | payer MEDICAID, SELFPAY | PROVIDERS: Admitting Provider Family Medicine; Emergency Provider Emergency Medicine; PCP Internal Medicine; Visit Provider Internal Medicine Cardiovascular Disease | DX: R00.0 Tachycardia, unspecified (principal) | CPT/HCPCS: 93010 ==

== ENCOUNTER → 2023-05-11 00:35 | Outpatient (BNV) | payer MEDICAID, SELFPAY | PROVIDERS: Emergency Provider Emergency Medicine; PCP Internal Medicine; Visit Provider Family Medicine | DX: F10.939 Alcohol use, unspecified with withdrawal, unspecified (principal) | CPT/HCPCS: 99223; 99233; 99239 ==

== ENCOUNTER 2023-08-23 10:38 | Outpatient (REF) | payer MEDICAID, SELFPAY ==
[2023-08-23 11:04] LABS: MANUAL DIFF FLAG NO
[2023-08-23 11:08] LABS: Basophils Absolute Auto 0.1 X10*3/uL (0.0-0.2); Basophils Percent Auto 1.3 % (0-2); Eosinophils Absolute Auto 0.1 X10*3/uL (0.0-0.4); Eosinophils Percent Auto 3.4 % (0-4); Hematocrit 44.2 % (42.0-52.0); Hemoglobin 14.8 g/dl (14.0-18.0); Imm Gran Abs Auto 0.01 X10*3/uL (0.00-0.03); Imm Gran Pct Auto 0.3 % (0.0-0.4); Lymphocytes Absolute Auto 0.8 X10*3/uL (1.2-4.9); Mean Corpuscular HGB Conc 33.5 g/dl (31.0-36.0); Mean Corpuscular Hemoglobin 28.6 pg (27.0-33.0); Mean Corpuscular Volume 85.5 fL (80.0-98.0); Mean Platelet Volume 9.7 fL (9.4-12.4); Monocytes Absolute Auto 0.4 X10*3/uL (0.1-1.2); Monocytes Percent Auto 9.7 % (2-11); Neutrophils Absolute Auto 2.4 x10*3/uL (2.0-8.3); Neutrophils Percent Auto 63.3 % (45-73); Platelet Count 175 X10*3/uL (160-400); Red Blood Count 5.17 X10*6/uL (4.60-5.80); Red Cell Distribution Width 13.5 % (11.0-16.0); White Blood Count 3.8 X10*3/uL (4.8-10.8)
[2023-08-23 11:21] LABS: Estimated Average Glucose 111 mg/dL; Hemoglobin A1c % 5.5 % (<6.0)
[2023-08-23 11:53] LABS: Alanine Aminotransferase 541 U/L (0-40); Albumin Level 4.2 g/dL (3.5-5.0); Alkaline Phosphatase 144 U/L (39-117); Anion Gap 20 (12-20); Aspartate Amino Transferase 325 U/L (5-37); Bilirubin Total 0.6 mg/dL (0.0-1.0); Blood Urea Nitrogen 11 mg/dL (9-16); Carbon Dioxide 24 mmol/L (22-29); Chloride 102 mmol/L (96-108); Cholesterol 183 mg/dL (<200); Estimated Glomerular Filt Rate > 60; Glucose Random 132 mg/dL (60-115); HDL Cholesterol 40 mg/dL (>40); LDL Cholesterol Calculated 114 mg/dL (<100); Potassium 4.5 mmol/L (3.3-5.1); Sodium 141 mmol/L (135-145); Total Protein 7.9 g/dL (6.5-8.0); Triglycerides 146 mg/dL (<150)
[2023-08-23 12:10] LABS: TSH reflex Free T4 0.28 uIU/mL (0.32-4.0)
[2023-08-23 12:50] LABS: Free T4 (Free Thyroxine) 0.83 ng/dL (0.71-1.85)
[2023-08-25 03:48] LABS: HBS Num1 > 1000.00 mIU/mL (0-7.99); ~HepC Num1 18.08 S/CO (0.00-0.79); ~Hepatitis B Surface Antibody REACTIVE (Nonreactive); ~Hepatitis C Antibody Reactive (Nonreactive)
[2023-08-27 19:18] LABS: HIV RNA PCR Qn Copies Not Detected Copies/mL; HIV RNA PCR Qn Log Copies Not Detected Log cps/mL
[2023-08-29 16:04] LABS: HepC Viral Load 251000 IU/mL (NOT DETECTED)
== END 2023-08-23 10:39 | disposition home or self-care (01) ==
LOC: HO.LAB 10:38
PROVIDERS: PCP Internal Medicine; Visit Provider Internal Medicine
DX: F10.20 Alcohol dependence, uncomplicated (principal); B18.2 Chronic viral hepatitis C
CPT/HCPCS: 36415; 80053; 80061; 83036; 84439; 84443; 85025; 86706; 86803; 87522; 87536; 87900

== ENCOUNTER 2023-09-18 07:48 | Outpatient (REF) | payer MEDICAID, SELFPAY ==
--- NOTE | ~2023-09-18 | US_ITS ---
EXAMINATION: US ABDOMEN LIMITED CLINICAL INFORMATION: Patient with hep C and alcohol use disorder. Elevated LFTs. COMPARISON: Ultrasound abdomen complete 09/18/2020. CT angiogram chest. TECHNIQUE: Real-time imaging of the right upper quadrant abdominal viscera. Limited visualization due to bowel gas. FINDINGS: PANCREAS: Limited visualization of pancreatic tail and head. Imaged portion of pancreatic body is unremarkable. LIVER: Increased hepatic parenchymal heterogeneity and echogenicity could be associated with hepatocellular disease/hepatic steatosis and substantially limits visualization. Correlation with liver function tests and clinical exam recommended to determine further management. GALLBLADDER: 5 mm gallstone identified. No gallbladder wall thickening. COMMON BILE DUCT: Normal in caliber measuring 0.16 cm in diameter. RIGHT KIDNEY: No hydronephrosis. No renal calculi. Limited visualization. The kidney measures 12.4 cm in maximum dimension. FREE FLUID: None. US/US abdomen limited IMPRESSION: 1. Increased hepatic parenchymal heterogeneity and echogenicity could be associated with hepatocellular disease/hepatic steatosis and substantially limits visualization. Correlation with liver function tests and clinical exam recommended to determine further management. 2. Cholelithiasis.
== END 2023-09-18 07:49 | disposition home or self-care (01) ==
LOC: HO.US 07:48
PROVIDERS: PCP Internal Medicine; Visit Provider Family Medicine
DX: B18.2 Chronic viral hepatitis C (principal)
CPT/HCPCS: 76705

== ENCOUNTER 2023-10-07 16:42 | Outpatient (REF) | payer OTHER, MEDICAID, SELFPAY ==
[2023-10-07 17:17] LABS: Prothrombin Time 12.2 SEC (11.1-13.3)
[2023-10-07 17:40] LABS: Alanine Aminotransferase 36 U/L (0-40); Albumin Level 4.7 g/dL (3.5-5.0); Alkaline Phosphatase 111 U/L (39-117); Aspartate Amino Transferase 32 U/L (5-37); Bilirubin Direct 0.1 mg/dL (0.0-0.5); Bilirubin Total 0.4 mg/dL (0.0-1.0); Total Protein 8.7 g/dL (6.5-8.0)
[2023-10-08 08:14] LABS: Hepatitis A Antibody IgG Nonreactive (Nonreactive); ~Hepatitis A Antibody IgG 0.54 S/CO (0.00-0.99)
[2023-10-16 02:23] LABS: FIB-ALT 32 U/L (9-46); FIB-Alpha-2-Macroglobulin 154 mg/dL (106-279); FIB-Apolipoprotein A1 147 mg/dL (94-176); FIB-GGT 105 U/L (3-90); FIB-Haptoglobin 245 mg/dL (43-212); FIB-Total Bilirubin 0.4 mg/dL (0.2-1.2); Liver Fibrosis Stage F0; Nec Inflam Act Grade A0; Nec Inflam Act Score 0.12
== END 2023-10-07 16:43 | disposition home or self-care (01) ==
LOC: HO.LAB 16:42
PROVIDERS: Absent Provider Family Medicine; PCP Internal Medicine; Visit Provider Internal Medicine
DX: B18.2 Chronic viral hepatitis C (principal)
CPT/HCPCS: 36415; 80076; 81596; 85610; 86708

== ENCOUNTER 2023-11-01 02:08 | Inpatient (IN) | payer OTHER, SELFPAY ==
[2023-11-01] VITALS (10 sets, daily range): BP systolic 118–158; BP diastolic 68–85; PULSE 73–92; RESP 16–20; TEMP 36.2–36.9; O2SAT 94–97; BMI 31.2
--- NOTE | ~2023-11-01 | CT_ITS ---
EXAMINATION: CT ABDOMEN AND PELVIS WITH CONTRAST CLINICAL INFORMATION: Epigastric pain, question pancreatitis COMPARISON: None available. TECHNIQUE: Multidetector volumetric images were obtained from the superior aspect of the liver through the pubic symphysis following administration 85 mL of Omnipaque 350 intravenous contrast. Sagittal and coronal reformatted images were obtained on the technologist's workstation. Oral contrast: No This CT examination was performed using dose optimization techniques as appropriate, variously including the following: *Automated exposure control *Adjustment of mA and/or kV according to patient size (this includes techniques or standardized protocols for targeted exams where dose is matched to indication/reason for exam; i.e. extremities or head) *Use of iterative reconstruction technique DLP: 1039 mGy-cm FINDINGS: LUNG BASES: Dependent bibasilar atelectasis. LIVER, GALLBLADDER, AND BILIARY TREE: The liver is normal in size, shape, and attenuation. No focal hepatic lesion or biliary ductal dilatation is present. Gallbladder appears partially contracted. PANCREAS: Pancreas appears moderately atrophic, and there is mild to moderate peripancreatic stranding and fluid, most suspicious for acute pancreatitis. There is suggestion of decreased enhancement in the distal pancreas relative to the proximal pancreas, suboptimally assessed due to atrophy. No discrete peripancreatic fluid collection is seen. SPLEEN: Mildly enlarged measuring approximately 15 cm in the axial plane. ADRENAL GLANDS: Unremarkable. KIDNEYS AND URETERS: Bilateral nephrograms are symmetric. No hydronephrosis or obstructing calculus identified. BLADDER: Unremarkable. GASTROINTESTINAL TRACT: No evidence of bowel obstruction. Limited evaluation for wall thickening in some segments of the colon due to incomplete distention. The appendix is unremarkable. Mild free fluid in the abdomen/pelvis. No free air is seen. ABDOMINAL WALL: Small fat-containing inguinal hernias. LYMPH NODES: Normal. VASCULAR: Unremarkable. PELVIC VISCERA: Unremarkable. OSSEOUS STRUCTURES: Scattered degenerative changes in the spine. CT/CT abdomen pelvis w IV con IMPRESSION: 1. Mild to moderate peripancreatic stranding and fluid, most suspicious for acute pancreatitis. Suggestion of decreased enhancement in the distal pancreas, suboptimally assessed due to atrophy; developing necrotizing changes cannot be excluded. No discrete peripancreatic fluid collection identified. 2. Mild splenomegaly. 3. Mild free fluid in the abdomen/pelvis. Electronically signed by: Joe Abreu MD 11/01/2023 05:41 AM EDT RP
--- NOTE | 2023-11-01 02:31 | MHC.EDTECH ---
Patient brought into triage area,labs/urine obtained and sent to lab.
[2023-11-01 02:36] LABS: MANUAL DIFF FLAG NO
[2023-11-01 02:38] LABS: Basophils Percent Auto 0.2 % (0-2); Hematocrit 45.4 % (42.0-52.0); Hemoglobin 15.9 g/dl (14.0-18.0); Imm Gran Abs Auto 0.05 X10*3/uL (0.00-0.03); Imm Gran Pct Auto 0.4 % (0.0-0.4); Lymphocytes Absolute Auto 0.9 X10*3/uL (1.2-4.9); Mean Corpuscular Hemoglobin 28.7 pg (27.0-33.0); Mean Corpuscular Volume 81.9 fL (80.0-98.0); Mean Platelet Volume 9.6 fL (9.4-12.4); Monocytes Absolute Auto 0.7 X10*3/uL (0.1-1.2); Monocytes Percent Auto 5.9 % (2-11); Neutrophils Absolute Auto 10.8 x10*3/uL (2.0-8.3); Neutrophils Percent Auto 86.5 % (45-73); Platelet Count 225 X10*3/uL (160-400); Red Blood Count 5.54 X10*6/uL (4.60-5.80); Red Cell Distribution Width 12.8 % (11.0-16.0); White Blood Count 12.4 X10*3/uL (4.8-10.8)
[2023-11-01 02:52] LABS: Appearance Urine Cloudy; Color Urine Dark Yellow; Glucose Urine UA Negative (Negative); Leukocyte Esterase Urine Negative (Negative); Nitrite Urine Negative (Negative); PH 5.5 (5.0-9.0); Specific Gravity - Urine >= 1.030 (1.005-1.025); UMIC TRIGGER UACC YES; Urine Blood Negative (Negative); Urine Ketones Trace mg/dL (Negative); Urine Protein 30 (1+) mg/dL (Neg-Trace)
[2023-11-01 02:57] LABS: Alanine Aminotransferase 63 U/L (0-40); Albumin Level 4.2 g/dL (3.5-5.0); Alkaline Phosphatase 124 U/L (39-117); Anion Gap 19 (12-20); Aspartate Amino Transferase 70 U/L (5-37); Bilirubin Direct 0.3 mg/dL (0.0-0.5); Bilirubin Total 0.9 mg/dL (0.0-1.0); Blood Urea Nitrogen 10 mg/dL (9-16); Carbon Dioxide 22 mmol/L (22-29); Chloride 98 mmol/L (96-108); Creatinine Clr Calc Pharmacy 155.4; Estimated Glomerular Filt Rate > 60; Ethanol 115 mg/dL; Glucose Random 158 mg/dL (60-115); Potassium 3.5 mmol/L (3.3-5.1); Sodium 135 mmol/L (135-145)
[2023-11-01 03:05] LABS: Lipase 525 U/L (8-78)
--- NOTE | 2023-11-01 03:16 | PC.NURSE ---
pt states, he drinks about 25 Nips a day, only did 15 yesterday. Pt also admits to doing Fentanyl, but hasn't had any in a couple of days, Pt states, It is not fentanyl now, it is something else . When asked if he wanted to go to rehab, pt states, that is mateusz hard to go and work . Pt states, he has not been able to keep anything down, including water.
[2023-11-01 03:27] LABS: Bacteria Urine None Seen (None Seen); Hyaline Casts Urine >20 /LPF (0-2); RBC Urine 0-2 /HPF (0-2); WBC Urine 0-5 /HPF (0-5)
[2023-11-01 03:43] LABS: Amphetamine Screen Urine Not Detected (Not Detect); Barbiturates, Urine Not Detected (Not Detect); Benzodiazepines Screen Urine Not Detected (Not Detect); Buprenorphine Scr Not Detected (Not Detect); Cannabinoid Screen Urine Not Detected (Not Detect); Cocaine Screen Urine POSITIVE (Not Detect); Fentanyl, urine POSITIVE (Not Detect); Methadone Screen, Urine Positive (Not Detect); Opiate Screen Urine POSITIVE (Not Detect); Oxycodone Screen Urine Not Detected (Not Detect); Phencyclidine Screen Urine Not Detected (Not Detect)
--- NOTE | 2023-11-01 04:17 | ED.GENADULT ---
HPI - General Adult General Chief complaint: Abdominal Pain Stated complaint: weakness/can't keep anything down has eaten in day Time Seen by Provider: 11/01/23 04:17 History of Present Illness ED Provider: Roland CAMPBELL narrative: The patient is a 33-year-old male with a history of alcoholism as well as other substance use problems. He is on methadone. Despite being on methadone he uses IV drugs. He says that several days ago he used some new drugs that he bought on the street intravenously. He says that he felt very bad after using the drugs and therefore he increased his alcohol use. However over the last 3 or 4 days he really does not feel he is tolerating oral intake very well and he this not able to drink as much as he usually does over the last couple of days because he feels so bad. He thinks the perhaps he is dehydrated. He has not been able to keep any food down he is still able to use his bowels. No definite fever. Related Data Home Medications ?Medication ?Instructions ?Recorded ?Confirmed methadone 10 mg/mL oral concentrate 120 mg PO DAILY 09/16/22 Previous Rx's ?Medication ?Instructions ?Recorded acamprosate 333 mg tablet,delayed 666 mg (2 x 333 mg) PO TID 30 days 05/15/23 release #180 tabs folic acid 1 mg tablet 1 mg PO DAILY 30 days #30 tabs 05/15/23 magnesium oxide 400 mg PO BID 30 days #60 tabs 05/15/23 thiamine mononitrate (vit B1) 100 100 mg PO DAILY 30 days #30 tabs 05/15/23 mg tablet Allergies Allergy/AdvReac Type Severity Reaction Status Date / Time No Known Allergies Allergy Verified 11/01/23 02:11 Review of Systems Review of Systems: Yes all other systems are reviewed and are negative [facility] Past Medical History Medical History Fatty liver History of cocaine abuse ETOH abuse Social History Social History Household Members: Family Housing: House Do you presently have visiting nurse or other home services: No Alcohol intake: current Alcohol intake frequency: 3 or more drinks per day Alcohol type: hard liquor Comment: pt refused bed/chair alarm despite fall risk education given Patient Tobacco Use Status: Never used Tobacco Smoked in Last 30 Days: No Use of substances other than those prescribed or required for medical reasons: Yes Substance Use Type: Other Substance Use Type Other:: fentanyl Substance Use Frequency: Daily Last Used Substance: Days (ago) Any prior treatment program specific to substance use: No Advance Directives: No Advance Directives Information Provided: Yes Do you have a plan to hurt others: No Plan service: No Current occupational status: unemployed Physical Exam ED Vital Signs: Vital Signs - 24 hr 11/01/23 02:10 11/01/23 03:34 Temperature 98 F 98.3 F Pulse Rate 88 80 Respiratory Rate 20 16 Blood Pressure 119/73 120/68 Pulse Oximetry 94 95 Oxygen Delivery Method Room Air Room Air BMI result Body Mass Index 31.2 Const Other: The patient is a somewhat chronically ill-appearing 33-year-old. He is awake and alert. Looks like he does not feel very well but does not seem in acute distress. HENWA Head: Yes normal to inspection Face and sinus: Yes normal facial exam Mouth: Normal oral and palatal mucosa present, oropharynx normal and moist mucous membranes Eyes General: appearance normal, both eyes and all related structures Conjunctivae: conjunctivae normal Sclerae: sclerae normal Pupils: Equal, round and reactive pupils present EOM: EOMs intact bilaterally Neck Neck: Yes full ROM and Yes no lymphadenopathy Resp Effort & Inspection: normal respiratory effort Auscultation: clear to auscultation bilaterally Cardio Rate: regular rate Rhythm: regular rhythm Heart sounds: S1 normal heart sound present and S2 normal heart sound present GI Other: The patient has some epigastric tenderness. Elsewhere the abdomen seems soft and nontender. Skin Other: Skin is pale and dry Neuro Other: The patient is awake and alert and well oriented. Cranial nerves are grossly intact. No significant slurring of speech. He moves his extremities symmetrically and appropriately. He has no lateralizing findings. Cranial nerves: Yes Equal, round and reactive pupils present Extrem General: Yes full ROM and Yes no pedal edema Medications Administered Discontinued Medications Generic Name Dose Route Start Last Admin Trade Name Freq PRN Reason Stop Dose Admin Sodium Chloride 1,000 mls @ 999 mls/hr 11/01/23 04:30 11/01/23 04:44 Ns IV 11/01/23 05:30 999 mls/hr .Q1H1M DARIUS Administration Iohexol 85 ml 11/01/23 05:02 11/01/23 05:02 Iohexol 350 Mg/Ml 100 Ml Infus..Btl IV 11/01/23 05:03 85 ml ONCE ONE Administration Lorazepam 1 mg 11/01/23 04:25 11/01/23 04:44 Lorazepam 2 Mg/Ml Vial IVPUSH 11/01/23 04:26 1 mg ONCE ONE Administration Medical Decision Making Medical Decision Making [facility] Narrative: Patient is a 33-year-old man with a history of substance use disorder including alcoholism and opioid use disorder. He uses IV drugs. He presents with 3 or 4 days of abdominal discomfort and nausea. His lipase is elevated at 525. A CT scan was done that confirms presence of pancreatitis. The patient is ethanol level is 115. I suspect this is probably low for the patient and I would consider him at risk for alcohol withdrawal. The patient was given IV fluids. He will be admitted to the hospital for further care. I have also ordered intramuscular phenobarbital. Lab Data 11/01/23 02:30 11/01/23 02:30 Labs: Lab Results 11/01/23 Range/Units 02:30 WBC 12.4 H (4.8-10.8) X10*3/uL RBC 5.54 (4.60-5.80) X10*6/uL Hgb 15.9 (14.0-18.0) g/dl Hct 45.4 (42.0-52.0) % MCV 81.9 (80.0-98.0) fL MCH 28.7 (27.0-33.0) pg MCHC 35.0 (31.0-36.0) g/dl RDW 12.8 (11.0-16.0) % Plt Count 225 D (160-400) X10*3/uL MPV 9.6 (9.4-12.4) fL Immature Gran % (Auto) 0.4 (0.0-0.4) % Neut % (Auto) 86.5 H (45-73) % Lymph % (Auto) 7.0 L (20-40) % [place] % (Auto) 5.9 (2-11) % Eos % (Auto) 0.0 (0-4) % Baso % (Auto) 0.2 (0-2) % Lymph # (Auto) 0.9 L (1.2-4.9) X10*3/uL [place] # (Auto) 0.7 (0.1-1.2) X10*3/uL Eos # (Auto) 0.0 (0.0-0.4) X10*3/uL Baso # (Auto) 0.0 (0.0-0.2) X10*3/uL Abs Immat Gran (auto) 0.05 H (0.00-0.03) X10*3/uL Absolute Neuts (auto) 10.8 H (2.0-8.3) x10*3/uL Absolute Nucleated RBC 0.000 (0.0-0.012) X10*3/uL Nucleated RBC % (auto) 0.0 (0.0-0.2) /100WBC Sodium 135 (135-145) mmol/L Potassium 3.5 D (3.3-5.1) mmol/L Chloride 98 (96-108) mmol/L Carbon Dioxide 22 (22-29) mmol/L Anion Gap 19 (12-20) BUN 10 (9-16) mg/dL Creatinine 0.91 (0.5-1.4) mg/dL Estim Creat Clear Calc 155.4 Estimated GFR > 60 Random Glucose 158 H (60-115) mg/dL Calcium 9.0 (8.4-10.2) mg/dL Total Bilirubin 0.9 (0.0-1.0) mg/dL Direct Bilirubin 0.3 (0.0-0.5) mg/dL AST 70 H (5-37) U/L ALT 63 H (0-40) U/L Alkaline Phosphatase 124 H (39-117) U/L Total Protein 8.0 (6.5-8.0) g/dL Albumin 4.2 (3.5-5.0) g/dL Lipase 525 H (8-78) U/L Urine Color Dark Yellow Urine Appearance Cloudy Urine pH 5.5 (5.0-9.0) Ur Specific [place] >= 1.030 H (1.005-1.025) Urine Protein 30 (1+) H (Neg-Trace) mg/dL Urine Glucose (UA) Negative (Negative) mg/dL Urine Ketones Trace (Negative) mg/dL Urine Blood Negative (Negative) Urine Nitrite Negative (Negative) Ur Leukocyte Esterase Negative (Negative) Urine RBC 0-2 (0-2) /HPF Urine WBC 0-5 (0-5) /HPF Ur Squamous Epith Cells 3-5 (0-2) /HPF Urine Bacteria None Seen (None Seen) Hyaline Casts >20 (0-2) /LPF Urine Opiates Screen POSITIVE H (Not Detect) Ur Buprenorphine Scrn Not Detected (Not Detect) ng/mL Ur Oxycodone Screen Not Detected (Not Detect) ng/mL Urine Methadone Screen Positive H (Not Detect) ng/mL Urine Fentanyl Screen POSITIVE H (Not Detect) Ur Barbiturates Screen Not Detected (Not Detect) Ur Phencyclidine Scrn Not Detected (Not Detect) Ur Amphetamines Screen Not Detected (Not Detect) U Benzodiazepines Scrn Not Detected (Not Detect) Urine Cocaine Screen POSITIVE H (Not Detect) U Marijuana (THC) Screen Not Detected (Not Detect) Ethyl Alcohol 115 mg/dL Discharge Plan Discharge Clinical Impression: Acute alcoholic pancreatitis Patient Disposition: Admitted As Inpatient Print Language: Latvian
[2023-11-01] MEDS: LORazepam 2 MG/ML VIAL 1 MG IVPUSH (04:44)
[2023-11-01] MEDS: 0.9 % Sodium Chloride 1,000 ML 999 ML IV (04:44)
[2023-11-01] MEDS: iohexoL 350 MG/ML 100 ML INFUS..BTL 85 ML IV (05:02)
--- NOTE | 2023-11-01 05:44 | PM.IMHP ---
History of Present Illness Date of Service: 11/01/23 Chief Complaint: abd pain, shakiness 33M PMH etoh dependence, etoh and HCV hepatosteatosis, opiate dependence presented with abdominal pain, weakness, and shakiness. Patient states he normally drinks 25 nips per day. Over the last 3 to 4 days he has not been able to drink as mentioned due to epigastric abdominal pain, nausea, vomiting. Started to feel very weak, shaky, dehydrated so he came to the ED. last drink was 22:00 day prior to presentation. In ED noted to have a lipase over 500. CT abdomen showed [id number] peripancreatic stranding and fluid most suspicious for acute pancreatitis, there is some suggestion of decreased enhancement in the distal pancreas, can not rule out developing necrotizing changes. Review of Systems Review of Systems: Yes all other systems are reviewed and are negative PMFSH Medical History Fatty liver History of cocaine abuse ETOH abuse Social History Household Members: Family Housing: House Do you presently have visiting nurse or other home services: No Alcohol intake: current Alcohol intake frequency: 3 or more drinks per day Alcohol type: hard liquor Comment: pt refused bed/chair alarm despite fall risk education given Patient Tobacco Use Status: Never used Tobacco Smoked in Last 30 Days: No Use of substances other than those prescribed or required for medical reasons: Yes Substance Use Type: Other Substance Use Type Other:: fentanyl Substance Use Frequency: Daily Last Used Substance: Days (ago) Any prior treatment program specific to substance use: No Advance Directives: No Advance Directives Information Provided: Yes Do you have a plan to hurt others: No Plan service: No Current occupational status: unemployed Meds Allergies Allergy/AdvReac Type Severity Reaction Status Date / Time No Known Allergies Allergy Verified 11/01/23 02:11 Active Medications: Current Medications Hydromorphone HCl (Hydromorphone Hcl 0.5 Mg/0.5 Ml Syringe) 0.5 mg IVPUSH Q3H PRN; Protocol PRN Reason: severe pain Lactated Ringer's (Lr) 1,000 mls @ 150 mls/hr IVCONT .Q6H40M DARIUS Ondansetron HCl (Ondansetron Hcl 4 Mg/2 Ml Vial) 4 mg IVPUSH Q6H PRN PRN Reason: Nausea Pharmacy Consult (Consult Rx Etoh Phenob Im/Po) 1 each MISCELLANE ONCE PRN; Protocol PRN Reason: Consult order Home Medications ?Medication ?Instructions ?Recorded ?Confirmed ?Last Taken ?Type methadone 10 mg/mL oral concentrate 120 mg PO DAILY 09/16/22 05/10/23 History Physical Exam Vital Signs and Narrative: Vital Signs: Last Vital Signs Temp 98.3 F 11/01/23 03:34 Pulse 80 11/01/23 03:34 Resp 16 11/01/23 03:34 BP 120/68 11/01/23 03:34 Pulse Ox 95 11/01/23 03:34 O2 Del Method Room Air 11/01/23 03:34 BMI result Body Mass Index 31.2 General: AO X 3, anxious appearing, somewhat jittery Resp: CTA bilateral, no accessory muscles used CVS: S1,S2,RRR GI: soft, epigastric tender, non distended Neuro: motor grossly intact, alert Psych: appropriate affect, appropriate insight Results Labs 11/01/23 02:30 11/01/23 02:30 Labs: Laboratory Results - last 24 hr 11/01/23 02:30 MCV 81.9 MCH 28.7 MCHC 35.0 RDW 12.8 Plt Count 225 D MPV 9.6 Immature Gran % (Auto) 0.4 Neut % (Auto) 86.5 H Lymph % (Auto) 7.0 L [place] % (Auto) 5.9 Eos % (Auto) 0.0 Baso % (Auto) 0.2 Lymph # (Auto) 0.9 L [place] # (Auto) 0.7 Eos # (Auto) 0.0 Baso # (Auto) 0.0 Abs Immat Gran (auto) 0.05 H Absolute Neuts (auto) 10.8 H Absolute Nucleated RBC 0.000 Nucleated RBC % (auto) 0.0 Anion Gap 19 Estim Creat Clear Calc 155.4 Estimated GFR > 60 Random Glucose 158 H Calcium 9.0 Total Bilirubin 0.9 Direct Bilirubin 0.3 AST 70 H ALT 63 H Alkaline Phosphatase 124 H Total Protein 8.0 Albumin 4.2 Lipase 525 H Urine Color Dark Yellow Urine Appearance Cloudy Urine pH 5.5 Ur Specific [place] >= 1.030 H Urine Protein 30 (1+) H Urine Glucose (UA) Negative Urine Ketones Trace Urine Blood Negative Urine Nitrite Negative Ur Leukocyte Esterase Negative Urine RBC 0-2 Urine WBC 0-5 Ur Squamous Epith Cells 3-5 Urine Bacteria None Seen Hyaline Casts >20 Urine Opiates Screen POSITIVE H Ur Buprenorphine Scrn Not Detected Ur Oxycodone Screen Not Detected Urine Methadone Screen Positive H Urine Fentanyl Screen POSITIVE H Ur Barbiturates Screen Not Detected Ur Phencyclidine Scrn Not Detected Ur Amphetamines Screen Not Detected U Benzodiazepines Scrn Not Detected Urine Cocaine Screen POSITIVE H U Marijuana (THC) Screen Not Detected Ethyl Alcohol 115 Imaging Radiologist's Impressions: Impressions Abdomen/Pelvis CT 11/01/23 05:04 IMPRESSION: 1. Mild to moderate peripancreatic stranding and fluid, most suspicious for acute pancreatitis. Suggestion of decreased enhancement in the distal pancreas, suboptimally assessed due to atrophy; developing necrotizing changes cannot be excluded. No discrete peripancreatic fluid collection identified. 2. Mild splenomegaly. 3. Mild free fluid in the abdomen/pelvis. Electronically signed by: Joe Abreu MD 11/01/2023 05:41 AM EDT RP Assessment and Plan (1) Alcohol withdrawal: Status: Acute Plan 33M PMH etoh dependence, etoh and HCV hepatosteatosis, opiate dependence presented with abdominal pain, weakness, and shakiness Acute alcoholic pancreatitis Aggressive IV hydration, IV pain meds Patient states he is ready to try solids Alcohol dependence with withdrawal Phenobarbital protocol, monitor CIWA Opiate dependence Reports methadone 135 mg daily, to confirm in a.m. Alcohol and hepatitis C hepatic steatosis Alcohol cessation Patient currently following up outpatient to initiate HCV treatment Low risk for DVT-encourage early ambulation Full code Patient with acute pancreatitis requiring aggressive IV hydration as well as alcohol withdrawal requiring phenobarbital protocol therefore expected require at least 2 midnights inpatient Quality Stroke Does the patient have a stroke diagnosis?: No VTE Prior VTE?: No VTE Risk Level:: Medical - low VTE Device Contraindication: Treatment Not Indicated VTE Drug Contraindication: Treatment Not Indicated
[2023-11-01] MEDS: PHENobarbitaL sodium 130 MG/ML IM ONCE 400 MG IM (06:06)
[2023-11-01] MEDS: Lactated Ringers 1,000 ML 150 ML IVCONT ×3 (06:08→21:28)
--- NOTE | 2023-11-01 06:53 | PC.NURSE ---
report given to Amirah CHOPRA
--- NOTE | 2023-11-01 07:52 | PC.NURSE ---
Care of Pt assumed at change of shift. Pt is resting quietly watching TV--NAD noted at this time. Pt reports daily Methadone from [facility]--Last dose 10/31/23 of 135mg.
[2023-11-01] MEDS: Thiamine HCL 100 MG in 0.9 % Sodium Chloride 100 ML 202 MG IV (08:39)
[2023-11-01] MEDS: Folic Acid 1 MG TABLET PO (08:39)
[2023-11-01] MEDS: Multivitamin TABLET 1 TAB PO (08:39)
[2023-11-01] MEDS: 0.9 % Sodium Chloride Flush 3 ML SYRINGE IVFLUSH (08:43)
[2023-11-01] MEDS: PHENobarbitaL sodium 130 MG/ML VIAL IM Q3Hx2 300 MG IM ×2 (08:45→12:20)
--- NOTE | 2023-11-01 09:17 | PHA.MEDREC ---
Pharmacy Consult ? Medication Reconciliation Pharmacy has completed the medication reconciliation. Spoke with patient. Called [facility] ricarda ([phone]) personally to confirm methadone dose. Patient was last doses with 135 mg on 10/31/23 @1216, confirmed with Otilia
--- NOTE | 2023-11-01 09:35 | MHC.CM.PN ---
PT REPORTS HE LIVES AT HOME WITH FAMILY AND IS INDEPENDENT WITH CARE PT HAS NO DME AND NO SERVICES PT DECLINES TO COMPLETE A HCP PCP: JAMAAL FARMER DCP: HOME NO SERVICES VIA PRIVATE TRANSPORT
[2023-11-01 10:26] LABS: Hematocrit 41.9 % (42.0-52.0); Hemoglobin 14.3 g/dl (14.0-18.0); Mean Corpuscular HGB Conc 34.1 g/dl (31.0-36.0); Mean Corpuscular Hemoglobin 28.3 pg (27.0-33.0); Mean Corpuscular Volume 82.8 fL (80.0-98.0); Mean Platelet Volume 9.7 fL (9.4-12.4); Platelet Count 148 X10*3/uL (160-400); Red Blood Count 5.06 X10*6/uL (4.60-5.80); White Blood Count 9.1 X10*3/uL (4.8-10.8)
[2023-11-01 10:40] LABS: Alanine Aminotransferase 51 U/L (0-40); Albumin Level 3.5 g/dL (3.5-5.0); Alkaline Phosphatase 106 U/L (39-117); Anion Gap 13 (12-20); Aspartate Amino Transferase 62 U/L (5-37); Bilirubin Direct 0.5 mg/dL (0.0-0.5); Bilirubin Total 1.3 mg/dL (0.0-1.0); Blood Urea Nitrogen 8 mg/dL (9-16); Calcium 8.6 mg/dL (8.4-10.2); Carbon Dioxide 28 mmol/L (22-29); Chloride 95 mmol/L (96-108); Creatinine Clr Calc Pharmacy 181.3; Estimated Glomerular Filt Rate > 60; Glucose Random 128 mg/dL (60-115); Potassium 3.8 mmol/L (3.3-5.1); Sodium 132 mmol/L (135-145); Total Protein 6.8 g/dL (6.5-8.0)
[2023-11-01] MEDS: Famotidine/PF 20 MG/2 ML VIAL IVPUSH (11:12)
[2023-11-01] MEDS: methADONE HCl 20 MG/2 ML ORAL.CONC 135 MG PO (11:15)
--- NOTE | 2023-11-01 12:53 | PM.EVENT ---
Event Note Date of Service: 11/01/23 Event Note: Seen and examined this morning Follow-up for acute alcoholic pancreatitis Reported worsening of epigastric abdominal pain after eating breakfast Acute alcoholic pancreatitis Continue IV hydration, IV pain meds pain after po trial, will downgrade to clear liquids probable component of etoh gastritis will add IV pepcid Alcohol dependence with withdrawal Phenobarbital protocol, monitor CIWA Continue thiamine, folic acid, multivitamin Opiate dependence Continue baseline dose of methadone, dose confirmed Alcohol and hepatitis C hepatic steatosis Alcohol cessation Patient currently following up outpatient to initiate HCV treatment Time Spent With Patient Time: Total time managing care of this patient today ____ minutes.
[2023-11-01] MEDS: Acetaminophen 325 MG TABLET 650 MG PO (14:58)
[2023-11-01] MEDS: HYDROmorphone HCl 0.5 MG/0.5 ML SYRINGE IVPUSH ×3 (17:35→23:30)
[2023-11-01] MEDS: ondansetron HCL 4 MG/2 ML VIAL IVPUSH (20:26)
[2023-11-01] MEDS: PHENobarbitaL 30 MG TABLET 60 MG PO (20:43)
[2023-11-01] MEDS: hydrOXYzine HCL 10 MG TABLET PO (21:25)
[2023-11-02] VITALS (8 sets, daily range): BP systolic 130–166; BP diastolic 67–95; PULSE 80–106; RESP 18–23; TEMP 36.3–38.1; O2SAT 92–97
[2023-11-02] MEDS: Acetaminophen 325 MG TABLET 650 MG PO (00:30)
[2023-11-02] MEDS: HYDROmorphone HCl 0.5 MG/0.5 ML SYRINGE IVPUSH ×5 (02:30→20:01)
[2023-11-02] MEDS: ondansetron HCL 4 MG/2 ML VIAL IVPUSH ×3 (02:30→14:56)
[2023-11-02] MEDS: Lactated Ringers 1,000 ML 150 ML IVCONT ×3 (04:34→20:05)
[2023-11-02] MEDS: PHENobarbitaL 30 MG TABLET PO (04:39)
[2023-11-02 06:57] LABS: Hematocrit 42.4 % (42.0-52.0); Hemoglobin 14.3 g/dl (14.0-18.0); Mean Corpuscular HGB Conc 33.7 g/dl (31.0-36.0); Mean Corpuscular Hemoglobin 29.5 pg (27.0-33.0); Mean Corpuscular Volume 87.4 fL (80.0-98.0); Mean Platelet Volume 12.5 fL (9.4-12.4); Platelet Count 165 X10*3/uL (160-400); Red Blood Count 4.85 X10*6/uL (4.60-5.80); White Blood Count 9.8 X10*3/uL (4.8-10.8)
[2023-11-02 06:58] LABS: NRBC Pct Auto 1.7 /100WBC (0.0-0.2)
[2023-11-02 07:09] LABS: Alanine Aminotransferase 43 U/L (0-40); Albumin Level 3.4 g/dL (3.5-5.0); Alkaline Phosphatase 98 U/L (39-117); Anion Gap 16 (12-20); Aspartate Amino Transferase 59 U/L (5-37); Bilirubin Direct 0.6 mg/dL (0.0-0.5); Bilirubin Total 1.5 mg/dL (0.0-1.0); Blood Urea Nitrogen 5 mg/dL (9-16); Calcium 8.6 mg/dL (8.4-10.2); Carbon Dioxide 26 mmol/L (22-29); Chloride 96 mmol/L (96-108); Creatinine Clr Calc Pharmacy 199.1; Estimated Glomerular Filt Rate > 60; Glucose Fasting 114 mg/dL (60-99); Lipase 112 U/L (8-78); Magnesium 1.7 mg/dL (1.6-2.6); Potassium 3.5 mmol/L (3.3-5.1); Sodium 134 mmol/L (135-145); Total Protein 6.7 g/dL (6.5-8.0)
[2023-11-02] MEDS: cloNIDine HCL 0.1 MG TABLET PO ×2 (09:08→15:49)
[2023-11-02] MEDS: Multivitamin TABLET 1 TAB PO (09:09)
[2023-11-02] MEDS: Folic Acid 1 MG TABLET PO (09:09)
[2023-11-02] MEDS: PHENobarbitaL 30 MG TABLET 60 MG PO ×2 (09:09→20:00)
[2023-11-02] MEDS: Thiamine HCL 100 MG in 0.9 % Sodium Chloride 100 ML 202 MG IV (09:09)
[2023-11-02] MEDS: Famotidine/PF 20 MG/2 ML VIAL IVPUSH (09:09)
[2023-11-02] MEDS: hydrOXYzine HCL 25 MG TABLET PO ×2 (09:09→14:56)
[2023-11-02] MEDS: methADONE HCl 20 MG/2 ML ORAL.CONC 135 MG PO (09:09)
--- NOTE | 2023-11-02 10:55 | HO.PM.IMPN ---
Subjective Subjective Date of Service: 11/02/23 Interval History: seen and examined this morning follow up for ETOH pancreatitis, alcohol withdrawal received extra dose of phenobarbatol overnight Abdominal pain improving but continues with nausea Review of Systems Review of Systems: Yes all other systems are reviewed and are negative Constitutional Constitutional: Denies chills and Denies fever(s) Physical Exam Vital Signs: Vital Signs: Last Vital Signs Temp 98.9 F 11/02/23 07:37 Pulse 101 H 11/02/23 07:37 Resp 20 11/02/23 07:37 BP 144/95 H 11/02/23 09:08 Pulse Ox 95 11/02/23 07:37 O2 Del Method Room Air 11/02/23 07:37 BMI result Body Mass Index 31.2 Const: General: alert and awake Nutritional Appearance: overweight Orientation/consciousness: patient oriented x3 Resp: Effort & Inspection: normal respiratory effort, able to speak in complete sentences, no respiratory distress and no use of accessory muscles Auscultation: clear to auscultation bilaterally Cardio: Rate: regular rate GI: Inspection: No distended Palpation (GI): Soft to palpation Neuro: General: patient oriented x3, moves all extremities and CN's II-XI intact bilaterally Extrem: General: Yes no pedal edema Objective Data Active Medications Acetaminophen (Acetaminophen 325 Mg Tablet) 650 mg PO Q6H PRN PRN Reason: Pain, Mild (Pain Scale 1-3), fever or headache Last Admin: 11/02/23 00:30 Dose: 650 mg Documented By: ANTGREGORIO Calcium Carbonate (Calcium Carbonate 750 Mg Tab.Chew) 750 mg PO Q4H PRN PRN Reason: Heartburn Clonidine HCl (Clonidine Hcl 0.1 Mg Tablet) 0.1 mg PO TID PRN; Protocol PRN Reason: withdrawal Last Admin: 11/02/23 09:08 Dose: 0.1 mg Documented By: TAO Famotidine (Famotidine/Pf 20 Mg/2 Ml Vial) 20 mg IVPUSH DAILY [facility] Last Admin: 11/02/23 09:09 Dose: 20 mg Documented By: TAO Folic Acid (Folic Acid 1 Mg Tablet) 1 mg PO DAILY [facility] Last Admin: 11/02/23 09:09 Dose: 1 mg Documented By: TAO Hydromorphone HCl (Hydromorphone Hcl 0.5 Mg/0.5 Ml Syringe) 0.5 mg IVPUSH Q3H PRN; Protocol PRN Reason: severe pain Last Admin: 11/02/23 09:21 Dose: 0.5 mg Documented By: TAO Hydroxyzine HCl (Hydroxyzine Hcl 25 Mg Tablet) 25 mg PO Q6H PRN PRN Reason: anxiety/restlessness Last Admin: 11/02/23 09:09 Dose: 25 mg Documented By: TAO Lactated Ringer's (Lr) 1,000 mls @ 150 mls/hr IVCONT .Q6H40M [facility] Last Admin: 11/02/23 04:34 Dose: 150 mls/hr Documented By: ANTOIC Thiamine HCl 100 mg/ Sodium (Chloride) 101 mls @ 202 mls/hr IV DAILY [facility] Last Infusion: 11/02/23 09:59 Dose: Infused Documented By: TAO Magnesium Hydroxide (Milk Of Magnesia 30 Ml Oral.Susp) 30 ml PO DAILY PRN PRN Reason: Constipation Melatonin (Melatonin 3 Mg Tablet) 6 mg PO BEDTIME PRN PRN Reason: Insomnia Methadone HCl (Methadone Hcl 20 Mg/2 Ml Oral.Conc) 135 mg PO DAILY [facility] Last Admin: 11/02/23 09:09 Dose: 135 mg Documented By: TAO Co-signed By: PINA Multivitamins/Vitamin C (Multivitamin Tablet) 1 tab PO DAILY [facility] Last Admin: 11/02/23 09:09 Dose: 1 tab Documented By: TAO Ondansetron HCl (Ondansetron Hcl 4 Mg/2 Ml Vial) 4 mg IVPUSH Q6H PRN PRN Reason: Nausea Last Admin: 11/02/23 09:09 Dose: 4 mg Documented By: TAO Pharmacy Consult (Consult Rx Etoh Phenob Im/Po) 1 each MISCELLANE ONCE PRN; Protocol PRN Reason: Consult order Phenobarbital (Phenobarbital 30 Mg Tablet) 60 mg PO BID [facility]; Protocol Stop: 11/03/23 09:01 Last Admin: 11/02/23 09:09 Dose: 60 mg Documented By: TAO Phenobarbital (Phenobarbital 30 Mg Tablet) 30 mg PO BID [facility]; Protocol Stop: 11/05/23 09:01 Phenobarbital (Phenobarbital 15 Mg Tablet) 15 mg PO DAILY [facility]; Protocol Stop: 11/07/23 09:01 Sodium Chloride (0.9 % Sodium Chloride Flush 3 Ml Syringe) 3 ml IVFLUSH QSHIFT [facility] Last Admin: 11/02/23 07:19 Dose: Not Given Documented By: TAO Non-Admin Reason: IV Running Labs 11/02/23 06:15 11/02/23 06:15 Labs: Laboratory Results - last 24 hr 11/02/23 06:15 MCV 87.4 MCH 29.5 MCHC 33.7 RDW 14.0 Plt Count 165 MPV 12.5 H Absolute Nucleated RBC 0.170 H Nucleated RBC % (auto) 1.7 H Anion Gap 16 Estim Creat Clear Calc 199.1 Estimated GFR > 60 Fasting Glucose 114 H Calcium 8.6 Magnesium 1.7 Total Bilirubin 1.5 H Direct Bilirubin 0.6 H AST 59 H ALT 43 H Alkaline Phosphatase 98 Total Protein 6.7 Albumin 3.4 L Lipase 112 H Hold Yellow Top See Note Assessment and Plan (1) Acute alcoholic pancreatitis: Status: Acute (2) Alcohol withdrawal: Status: Acute Plan This is 33M PMH etoh dependence, etoh and HCV hepatosteatosis, opiate dependence presented with abdominal pain, weakness, and shakiness Acute alcoholic pancreatitis Continue IV hydration, IV pain meds on clears, abdominal pain improving but still with nausea lipase trending down advance diet as tolerated probable component of etoh gastritis will add IV pepcid Alcohol dependence with withdrawal Phenobarbital protocol, monitor CIWA Continue thiamine, folic acid, multivitamin addiction medicine team evaluation pending Opiate dependence Continue baseline dose of methadone, dose confirmed mild hyponatremia improving Alcohol and hepatitis C hepatic steatosis LFTs stable Alcohol cessation Patient currently following up outpatient to initiate HCV treatment Low risk for DVT-encourage early ambulation Full code requires ongoing inpatient stay for management of acute pancreatitis requiring aggressive IV hydration as well as alcohol withdrawal requiring phenobarbital protocol Quality Stroke Does the patient have a stroke diagnosis?: No VTE Prior VTE?: No VTE Risk Level:: Medical - low VTE Device Contraindication: Treatment Not Indicated VTE Drug Contraindication: Treatment Not Indicated
[2023-11-02] MEDS: Milk of Magnesia 30 ML ORAL.SUSP PO (15:00)
[2023-11-02] MEDS: LORazepam 1 MG TABLET PO ×2 (15:49→20:01)
[2023-11-02] MEDS: 0.9 % Sodium Chloride Flush 3 ML SYRINGE IVFLUSH (20:03)
[2023-11-03] MEDS: LORazepam 1 MG TABLET PO ×3 (00:18→21:46)
[2023-11-03] MEDS: cloNIDine HCL 0.1 MG TABLET PO (00:18)
[2023-11-03] MEDS: Acetaminophen 325 MG TABLET 650 MG PO ×3 (00:18→20:18)
[2023-11-03] MEDS: HYDROmorphone HCl 0.5 MG/0.5 ML SYRINGE IVPUSH ×5 (00:19→21:46)
[2023-11-03 03:17] VITALS: BP 134/84; PULSE 92; RESP 20; TEMP 37.5; O2SAT 95
[2023-11-03 06:42] LABS: Alanine Aminotransferase 40 U/L (0-40); Albumin Level 3.3 g/dL (3.5-5.0); Alkaline Phosphatase 88 U/L (39-117); Anion Gap 14 (12-20); Aspartate Amino Transferase 44 U/L (5-37); Bilirubin Direct 0.4 mg/dL (0.0-0.5); Bilirubin Total 0.9 mg/dL (0.0-1.0); Blood Urea Nitrogen 5 mg/dL (9-16); Calcium 9.1 mg/dL (8.4-10.2); Carbon Dioxide 28 mmol/L (22-29); Chloride 98 mmol/L (96-108); Creatinine Clr Calc Pharmacy 199.1; Estimated Glomerular Filt Rate > 60; Glucose Random 112 mg/dL (60-115); Potassium 3.5 mmol/L (3.3-5.1); Sodium 136 mmol/L (135-145); Total Protein 6.8 g/dL (6.5-8.0)
[2023-11-03 07:20] VITALS: BP 162/89; PULSE 97; RESP 16; TEMP 37.1; O2SAT 93
[2023-11-03] MEDS: Thiamine HCL 100 MG in 0.9 % Sodium Chloride 100 ML 202 MG IV (08:04)
[2023-11-03] MEDS: Multivitamin TABLET 1 TAB PO (08:04)
[2023-11-03] MEDS: Folic Acid 1 MG TABLET PO (08:04)
[2023-11-03] MEDS: Famotidine/PF 20 MG/2 ML VIAL IVPUSH (08:05)
[2023-11-03] MEDS: methADONE HCl 20 MG/2 ML ORAL.CONC 135 MG PO (08:05)
[2023-11-03] MEDS: hydrOXYzine HCL 25 MG TABLET PO ×2 (08:22→16:34)
[2023-11-03] MEDS: LORazepam 0.5 MG TABLET 0.25 MG PO (08:37)
--- NOTE | 2023-11-03 09:51 | P.PNIM_ITS ---
Subjective Subjective Date of Service: 11/03/23 Interval History: seen and examined this morning follow up for ETOH pancreatitis, alcohol withdrawal Abdominal pain improving Review of Systems Review of Systems: Yes all other systems are reviewed and are negative Constitutional Constitutional: Denies chills and Denies fever(s) Physical Exam 2 Vital Signs: Vital Signs: Last Vital Signs Temp 98.8 F 11/03/23 07:20 Pulse 97 11/03/23 07:20 Resp 16 11/03/23 07:20 BP 162/89 H 11/03/23 07:20 Pulse Ox 93 11/03/23 07:20 O2 Del Method Room Air 11/03/23 07:20 BMI result Body Mass Index 31.2 Appearing in no acute distress lung sounds are clear to auscultation heart regular rate rhythm, clear S1, S2 positive bowel sounds, abdomen is soft, nontender neuro patient is alert x3, no focal deficits Objective Data Active Medications Acetaminophen (Acetaminophen 325 Mg Tablet) 650 mg PO Q6H PRN PRN Reason: Pain, Mild (Pain Scale 1-3), fever or headache Last Admin: 11/03/23 00:18 Dose: 650 mg Documented By: TANESHA Calcium Carbonate (Calcium Carbonate 750 Mg Tab.Chew) 750 mg PO Q4H PRN PRN Reason: Heartburn Clonidine HCl (Clonidine Hcl 0.1 Mg Tablet) 0.1 mg PO TID PRN; Protocol PRN Reason: withdrawal Last Admin: 11/03/23 00:18 Dose: 0.1 mg Documented By: TANESHA Famotidine (Famotidine/Pf 20 Mg/2 Ml Vial) 20 mg IVPUSH DAILY [facility] Last Admin: 11/03/23 08:05 Dose: 20 mg Documented By: LINSEY Folic Acid (Folic Acid 1 Mg Tablet) 1 mg PO DAILY [facility] Last Admin: 11/03/23 08:04 Dose: 1 mg Documented By: LINSEY Hydromorphone HCl (Hydromorphone Hcl 0.5 Mg/0.5 Ml Syringe) 0.5 mg IVPUSH Q3H PRN; Protocol PRN Reason: severe pain Last Admin: 11/03/23 08:16 Dose: 0.5 mg Documented By: LINSEY Hydroxyzine HCl (Hydroxyzine Hcl 25 Mg Tablet) 25 mg PO Q6H PRN PRN Reason: anxiety/restlessness Last Admin: 11/03/23 08:22 Dose: 25 mg Documented By: LINSEY Thiamine HCl 100 mg/ Sodium (Chloride) 101 mls @ 202 mls/hr IV DAILY [facility] Last Infusion: 11/03/23 08:35 Dose: Infused Documented By: LINSEY Magnesium Hydroxide (Milk Of Magnesia 30 Ml Oral.Susp) 30 ml PO DAILY PRN PRN Reason: Constipation Last Admin: 11/02/23 15:00 Dose: 30 ml Documented By: TAO Melatonin (Melatonin 3 Mg Tablet) 6 mg PO BEDTIME PRN PRN Reason: Insomnia Methadone HCl (Methadone Hcl 20 Mg/2 Ml Oral.Conc) 135 mg PO DAILY [facility] Last Admin: 11/03/23 08:05 Dose: 135 mg Documented By: LINSEY Co-signed By: JOSE Multivitamins/Vitamin C (Multivitamin Tablet) 1 tab PO DAILY [facility] Last Admin: 11/03/23 08:04 Dose: 1 tab Documented By: LINSEY Ondansetron HCl (Ondansetron Hcl 4 Mg/2 Ml Vial) 4 mg IVPUSH Q6H PRN PRN Reason: Nausea Last Admin: 11/02/23 14:56 Dose: 4 mg Documented By: TAO Pharmacy Consult (Consult Rx Etoh Phenob Im/Po) 1 each MISCELLANE ONCE PRN; Protocol PRN Reason: Consult order Phenobarbital (Phenobarbital 30 Mg Tablet) 30 mg PO BID [facility]; Protocol Stop: 11/05/23 09:01 Phenobarbital (Phenobarbital 15 Mg Tablet) 15 mg PO DAILY [facility]; Protocol Stop: 11/07/23 09:01 Sodium Chloride (0.9 % Sodium Chloride Flush 3 Ml Syringe) 3 ml IVFLUSH QSHIFT [facility] Last Admin: 11/03/23 08:34 Dose: Not Given Documented By: LINSEY Non-Admin Reason: IV Running Labs 11/02/23 06:15 11/03/23 06:07 Labs: Laboratory Results - last 24 hr 11/03/23 06:07 Hold Purple Top SEE NOTE Anion Gap 14 Estim Creat Clear Calc 199.1 Estimated GFR > 60 Random Glucose 112 Calcium 9.1 Total Bilirubin 0.9 Direct Bilirubin 0.4 AST 44 H ALT 40 Alkaline Phosphatase 88 Total Protein 6.8 Albumin 3.3 L Assessment and Plan (1) Acute alcoholic pancreatitis: Status: Acute (2) Alcohol withdrawal: Status: Acute Plan This is 33M PMH etoh dependence, etoh and HCV hepatosteatosis, opiate dependence presented with abdominal pain, weakness, and shakiness Acute alcoholic pancreatitis Continue IV hydration, IV pain meds on clears, abdominal pain improving but still with nausea lipase trending down advance diet as tolerated probable component of etoh gastritis continue IV pepcid Alcohol dependence with withdrawal Phenobarbital protocol, monitor CIWA Continue thiamine, folic acid, multivitamin addiction medicine team evaluation pending PRN ativan Opiate dependence Continue baseline dose of methadone, dose confirmed mild hyponatremia improving Alcohol and hepatitis C hepatic steatosis LFTs stable Alcohol cessation Patient currently following up outpatient to initiate HCV treatment Low risk for DVT-encourage early ambulation Attending Dr. Martin Full code requires ongoing inpatient stay for management of acute pancreatitis requiring aggressive IV hydration as well as alcohol withdrawal requiring phenobarbital protocol Quality Stroke Does the patient have a stroke diagnosis?: No VTE Prior VTE?: No VTE Risk Level:: Medical - low VTE Device Contraindication: Treatment Not Indicated VTE Drug Contraindication: Treatment Not Indicated
[2023-11-03 11:39] VITALS: BP 159/90; PULSE 92; RESP 18; TEMP 36.7; O2SAT 94
--- NOTE | 2023-11-03 14:09 | MHC.RECOVRN ---
Met with pt in 462 after consult placed to Addiction Medicine for AUD. Pt did have positive AUDIT C, however, declined brief intervention. Pt had presented to the ED for evaluation of possible dehydration and alcohol use. Upon evaluation, pt admitted for pancreatitis and alcohol withdrawal. Pt laying in bed, awake, alert, engages in conversation. Pt reports he had been drinking 5 nips plus 2 beers up until about a week ago. Pt reports on Friday, 10/27, pt increased alcohol consumption to 20-30 nips Fireball daily plus beer. Pt reports he was drinking in order to alleviate anxiety. Pt also reports IV heroin/fentanyl use, 1 bag at night to help with sleep. Pt is currently on methadone, 135 mg daily x 5 years. 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 Pt reports he has outpatient providers at [facility] that prescribe Campral as well as treatment for HCV. Pt reports he does find Campral to be helpful. Pt reports he currently sees his counselor at [facility] 2x weekly. Discussed other recovery supports and resources, pt is interested in meeting with a organ recovery coordinator. Will have community living coach meet with pt tomorrow evening if pt is still here. Pt was provided with written resources as well as t/w contact information if needed. Denies questions or concerns at this time.
--- NOTE | 2023-11-03 15:03 | MHC.CM.PN ---
EMR reviewed and per MD rounds, pt is not medically cleared for discharge due to management of acute pancreatitis and ETOH withdrawal.
[2023-11-03 16:00] VITALS: BP 149/87; PULSE 99; RESP 20; TEMP 36.9; O2SAT 95
[2023-11-03] MEDS: 0.9 % Sodium Chloride Flush 3 ML SYRINGE IVFLUSH ×2 (16:26→21:49)
--- NOTE | 2023-11-03 18:53 | MHC.RECOVSUP ---
? Reason for consult Recovery Support o Current location: [facility] o Identified substance use concern: heroin - Support ? Intervention: o Community resources provided o Harm reduction discussion ? Plan: o Patient to follow up with [facility] after discharge ? Additional information: Met with patient and we talked about recovery and harm reduction.. We talked about diffrent pathways and patient stated that he would like a dermatologist and dermatopathologist a referral was made.
[2023-11-03 19:52] VITALS: BP 135/87; PULSE 109; RESP 20; TEMP 37.4; O2SAT 95
[2023-11-04] VITALS (7 sets, daily range): BP systolic 129–160; BP diastolic 69–97; PULSE 95–105; RESP 16–20; TEMP 36.4–37.3; O2SAT 92–96
[2023-11-04] MEDS: Melatonin 3 MG TABLET 6 MG PO
--- NOTE | 2023-11-04 | ECG_ITS ---
Test Reason : T wave Chg Blood Pressure : / mmHG Vent. Rate : 100 BPM Atrial Rate : 100 BPM P-R Int : 142 ms QRS Dur : 098 ms QT Int : 360 ms P-R-T Axes : 027 029 264 degrees QTc Int : 464 ms Normal sinus rhythm Left ventricular hypertrophy with repolarization abnormality ( R in aVL , Sokolow-Juarez ) Inferior infarct (cited on or before 09-JUL-2021) Abnormal ECG When compared with ECG of 10-MAY-2023 23:41, ST now depressed in Anterior leads T wave inversion more evident in Lateral leads Referred By: Edita Tineo Electronically Signed By:NEIL MARTELL
[2023-11-04] MEDS: Famotidine/PF 20 MG/2 ML VIAL IVPUSH (08:38)
[2023-11-04] MEDS: Thiamine HCL 100 MG in 0.9 % Sodium Chloride 100 ML 202 MG IV (08:38)
[2023-11-04] MEDS: Folic Acid 1 MG TABLET PO (08:39)
[2023-11-04] MEDS: Multivitamin TABLET 1 TAB PO (08:39)
[2023-11-04] MEDS: LORazepam 1 MG TABLET PO ×2 (08:41→17:25)
[2023-11-04] MEDS: methADONE HCl 20 MG/2 ML ORAL.CONC 135 MG PO (08:41)
[2023-11-04] MEDS: 0.9 % Sodium Chloride Flush 3 ML SYRINGE IVFLUSH ×2 (08:55→17:27)
[2023-11-04] MEDS: Milk of Magnesia 30 ML ORAL.SUSP PO (09:27)
--- NOTE | 2023-11-04 09:44 | HO.PM.IMPN ---
Subjective Subjective Date of Service: 11/04/23 Interval History: seen and examined this morning follow up for ETOH pancreatitis, alcohol withdrawal Abdominal pain improving Review of Systems Review of Systems: Yes all other systems are reviewed and are negative Constitutional Constitutional: Denies chills and Denies fever(s) Physical Exam Vital Signs: Vital Signs: Last Vital Signs Temp 98.6 F 11/04/23 08:00 Pulse 95 11/04/23 08:00 Resp 20 11/04/23 08:00 BP 148/90 H 11/04/23 08:00 Pulse Ox 96 11/04/23 08:00 O2 Del Method Room Air 11/04/23 08:00 BMI result Body Mass Index 31.2 Appearing in no acute distress lung sounds are clear to auscultation heart regular rate rhythm, clear S1, S2 positive bowel sounds, abdomen is soft, nontender neuro patient is alert x3, no focal deficits Objective Data Active Medications Acetaminophen (Acetaminophen 325 Mg Tablet) 650 mg PO Q6H PRN PRN Reason: Pain, Mild (Pain Scale 1-3), fever or headache Last Admin: 11/03/23 20:18 Dose: 650 mg Documented By: TJ Calcium Carbonate (Calcium Carbonate 750 Mg Tab.Chew) 750 mg PO Q4H PRN PRN Reason: Heartburn Clonidine HCl (Clonidine Hcl 0.1 Mg Tablet) 0.1 mg PO TID PRN; Protocol PRN Reason: withdrawal Last Admin: 11/03/23 00:18 Dose: 0.1 mg Documented By: TANESHA Famotidine (Famotidine/Pf 20 Mg/2 Ml Vial) 20 mg IVPUSH DAILY [facility] Last Admin: 11/04/23 08:38 Dose: 20 mg Documented By: FARHAN Folic Acid (Folic Acid 1 Mg Tablet) 1 mg PO DAILY [facility] [place] Last Admin: 11/04/23 08:39 Dose: 1 mg Documented By: FARHAN Hydromorphone HCl (Hydromorphone Hcl 0.5 Mg/0.5 Ml Syringe) 0.5 mg IVPUSH Q3H PRN; Protocol PRN Reason: severe pain Last Admin: 11/03/23 21:46 Dose: 0.5 mg Documented By: TJ Hydroxyzine HCl (Hydroxyzine Hcl 25 Mg Tablet) 25 mg PO Q6H PRN PRN Reason: anxiety/restlessness Last Admin: 11/03/23 16:34 Dose: 25 mg Documented By: JOSE Thiamine HCl 100 mg/ Sodium (Chloride) 101 mls @ 202 mls/hr IV DAILY [facility] Last Infusion: 11/04/23 09:14 Dose: Infused Documented By: FARHAN Lorazepam (Lorazepam 1 Mg Tablet) 1 mg PO TID PRN PRN Reason: Anxiety Last Admin: 11/04/23 08:41 Dose: 1 mg Documented By: FARHAN Magnesium Hydroxide (Milk Of Magnesia 30 Ml Oral.Susp) 30 ml PO DAILY PRN PRN Reason: Constipation Last Admin: 11/04/23 09:27 Dose: 30 ml Documented By: FARHAN Melatonin (Melatonin 3 Mg Tablet) 6 mg PO BEDTIME PRN PRN Reason: Insomnia Last Admin: 11/04/23 00:00 Dose: 6 mg Documented By: TIM Methadone HCl (Methadone Hcl 20 Mg/2 Ml Oral.Conc) 135 mg PO DAILY [facility] Last Admin: 11/04/23 08:41 Dose: 135 mg Documented By: FARHAN Co-signed By: JAZMINE Multivitamins/Vitamin C (Multivitamin Tablet) 1 tab PO DAILY [facility] Last Admin: 11/04/23 08:39 Dose: 1 tab Documented By: FARHAN Ondansetron HCl (Ondansetron Hcl 4 Mg/2 Ml Vial) 4 mg IVPUSH Q6H PRN PRN Reason: Nausea Last Admin: 11/02/23 14:56 Dose: 4 mg Documented By: TAO Pharmacy Consult (Consult Rx Etoh Phenob Im/Po) 1 each MISCELLANE ONCE PRN; Protocol PRN Reason: Consult order Phenobarbital (Phenobarbital 30 Mg Tablet) 30 mg PO BID [facility]; Protocol Stop: 11/05/23 09:01 Last Admin: 11/04/23 08:40 Dose: Not Given Documented By: FARHAN Non-Admin Reason: Patient Refused Phenobarbital (Phenobarbital 15 Mg Tablet) 15 mg PO DAILY [facility]; Protocol Stop: 11/07/23 09:01 Sodium Chloride (0.9 % Sodium Chloride Flush 3 Ml Syringe) 3 ml IVFLUSH QSHIFT [facility] Last Admin: 11/04/23 08:55 Dose: 3 ml Documented By: FARHAN Labs 11/02/23 06:15 11/03/23 06:07 Labs: Laboratory Results - last 24 hr 11/02/23 06:15 Smear Path Review SEE NOTE Assessment and Plan (1) Acute alcoholic pancreatitis: Status: Acute (2) Alcohol withdrawal: Status: Acute Plan This is 33M PMH etoh dependence, etoh and HCV hepatosteatosis, opiate dependence presented with abdominal pain, weakness, and shakiness Acute alcoholic pancreatitis Continue IV hydration, IV pain meds on clears, abdominal pain improving but still with nausea lipase trending down advance diet to regular probable component of etoh gastritis continue IV pepcid Alcohol dependence with withdrawal Phenobarbital protocol, monitor CIWA Continue thiamine, folic acid, multivitamin addiction medicine team following PRN ativan Opiate dependence Continue baseline dose of methadone mild hyponatremia improving Alcohol and hepatitis C hepatic steatosis LFTs stable Alcohol cessation Patient currently following up outpatient to initiate HCV treatment Low risk for DVT-encourage early ambulation Attending Dr. Martin Full code requires ongoing inpatient stay for management of acute pancreatitis requiring aggressive IV hydration as well as alcohol withdrawal requiring phenobarbital protocol Quality Stroke Does the patient have a stroke diagnosis?: No VTE Prior VTE?: No VTE Risk Level:: Medical - low VTE Device Contraindication: Treatment Not Indicated VTE Drug Contraindication: Treatment Not Indicated
[2023-11-04] MEDS: HYDROmorphone HCl 0.5 MG/0.5 ML SYRINGE IVPUSH (17:21)
[2023-11-04] MEDS: cloNIDine HCL 0.1 MG TABLET PO (21:30)
[2023-11-04] MEDS: hydrOXYzine HCL 25 MG TABLET PO (21:32)
[2023-11-05] VITALS: BP 149/78; PULSE 100; RESP 18; TEMP 36.6; O2SAT 94
[2023-11-05] MEDS: LORazepam 1 MG TABLET PO (00:08)
[2023-11-05 00:09] VITALS: RESP 18
[2023-11-05] MEDS: HYDROmorphone HCl 0.5 MG/0.5 ML SYRINGE IVPUSH (00:09)
[2023-11-05] MEDS: Melatonin 3 MG TABLET 6 MG PO (00:14)
[2023-11-05] MEDS: 0.9 % Sodium Chloride Flush 3 ML SYRINGE IVFLUSH ×2 (00:15→11:40)
[2023-11-05 03:33] VITALS: BP 135/78; PULSE 93; RESP 18; TEMP 36.4; O2SAT 94
--- NOTE | 2023-11-05 07:23 | PC.NURSE ---
Patient received in bed AAOX4. CIWA score 5 and 6. Medicated with 0.5 mg iv hydromorphone for abdominal pain with good effect. Lorazepam 1 mg po and melatonin 6 mg po given for anxiety and insomnia. NSR on panel monitor. No signs of alcohol withdrawal noted.
[2023-11-05 07:35] VITALS: BP 121/74; PULSE 84; RESP 20; TEMP 36.4; O2SAT 94
[2023-11-05] MEDS: methADONE HCl 20 MG/2 ML ORAL.CONC 135 MG PO (10:10)
[2023-11-05] MEDS: Folic Acid 1 MG TABLET PO (10:10)
--- NOTE | 2023-11-05 10:11 | P.DS_ITS ---
DS: Providers Provider Date of Service: 11/05/23 Date of admission: 11/01/23 05:43 Primary care physician: Tod Dow MD Consults: 11/02/23 07:59 Addiction Medicine Routine Consulting Provider: Addiction Covering Reason for consultation: AUD Has provider been notified: No DS: Diagnosis Discharge Diagnosis (1) Acute alcoholic pancreatitis: Status: Acute (2) Alcohol withdrawal: Status: Acute DS: Summary Hospital Course Hospital Course: History and physical as per admitting provider. 33M PMH etoh dependence, etoh and HCV hepatosteatosis, opiate dependence presented with abdominal pain, weakness, and shakiness. Patient states he normally drinks 25 nips per day. Over the last 3 to 4 days he has not been able to drink as mentioned due to epigastric abdominal pain, nausea, vomiting. Started to feel very weak, shaky, dehydrated so he came to the ED. last drink was 22:00 day prior to presentation. In ED noted to have a lipase over 500. CT abdomen showed [id number] peripancreatic stranding and fluid most suspicious for acute pancreatitis, there is some suggestion of decreased enhancement in the distal pancreas, can not rule out developing necrotizing changes. 33-year-old man treated for acute alcoholic pancreatitis, alcohol withdrawal and opiate withdrawal. Patient was treated with IV hydration, IV pain medication, started with clear liquid diet and advanced to regular. Significant improvement in abdominal pain and nausea. Secondary to alcohol abuse. Treated with phenobarbital and lorazepam, continue thiamine, folic acid and multivitamin. Seen evaluated by the Addiction Medicine team and he should follow with them outpatient. In terms of his opiate dependence he was treated with methadone and can continue this. He has a history of hepatitis-C, he should follow-up for outpatient treatment Mild hyponatremia. Improved with IV fluids Opiate dependence. Continue methadone, follow up with the Addiction Medicine team outpatient Time Attestation Discharge Coordination Time (in mins): 36 Quality: Safe Use of Opioids Does Pt have an Active Cancer Diagnosis on the Problem List?: No Quality: Stroke Does the patient have a stroke diagnosis?: No Physical Exam Vital Signs: Vital Signs: Last Vital Signs Temp 97.5 F 11/05/23 07:35 Pulse 84 11/05/23 07:35 Resp 20 11/05/23 07:35 BP 121/74 11/05/23 07:35 Pulse Ox 94 11/05/23 07:35 O2 Del Method Room Air 11/05/23 07:35 BMI result Body Mass Index 31.2 Appearing in no acute distress head is normocephalic atraumatic eyes pupils are PERRLA sclera is anicteric mouth throat mucous membranes are intact and moist neck is supple no lymphadenopathy, no JVD noted lung sounds are clear to auscultation heart regular rate rhythm, clear S1, S2 positive bowel sounds, abdomen is soft, nontender neuro patient is alert x3, no focal deficits DS: Data Data Completed and Pending Completed studies during hospitalization [Text1]: Procedures Detoxification Services for Substance Abuse Treatment (05/11/23) Discharge Plan Discharge Anticipated Discharge Date/Time: 11/05/23 07:32 Patient Disposition: Home, Self-Care Discharge Diagnosis: Alcoholic pancreatitis Alcohol withdrawal Substance abuse Referrals: Tod Darling MD [Primary Care Provider] - 1 Week Jhony Waldron MD [Physician] - 1 Week Lore Huitron CNP [Nurse Practitioner] - 1 Week Discharge Medications: New folic acid 1 mg Tablet 1 mg PO DAILY Qty: 30 0RF oxycodone 5 mg tablet 5 mg PO Q8H PRN (Reason: pain) Qty: 12 0RF Rx Instructions: Partial Fill upon patient request. Continued acamprosate 333 mg Tablet,Delayed Release (Dr/Ec) 666 mg PO TID 30 Days Qty: 180 0RF thiamine mononitrate (vit B1) 100 mg Tablet 100 mg PO DAILY 30 Days Qty: 30 0RF methadone 10 mg/mL Concentrate 135 mg PO DAILY Discharge Orders: Discharge Order (Routine); Ordered 11/05/23 Ordered By: Edita Tineo Diet: Advance to usual diet Activity on Discharge: As tolerated Stand Alone Forms: Patient Portal Discharge page Print Language: Kinyarwanda Care Plan Goals: Do not drink alcohol. Follow-up with addiction Medicine team. Seek outpatient programs for assistance with this. Last methadone dose 11/05/23 Health Concerns: Alcoholic pancreatitis Alcohol withdrawal Substance abuse Plan of Treatment: Follow-up with primary care provider as needed Take all medications as prescribed Assessment: See discharge summary
--- NOTE | 2023-11-05 10:24 | MHC.CM.PN ---
Pt is medically cleared for discharge home self-care, patient will transport home via lyft.
[2023-11-05] MEDS: Famotidine/PF 20 MG/2 ML VIAL IVPUSH (11:40)
[2023-11-05] MEDS: Multivitamin TABLET 1 TAB PO (11:41)
== END 2023-11-05 11:05 | disposition home or self-care (01) | DRG 282 ==
LOC: HO.ED 05:48 → HO.EDOVER 06:09 → HO.IMC 11:15
PROVIDERS: Physician Assistant Medical; Admitting Provider Internal Medicine; Emergency Provider Emergency Medicine; PCP Internal Medicine; Visit Provider Nurse Practitioner Acute Care
DX: K85.20 Alcohol induced acute pancreatitis without necrosis or infection (principal); K76.0 Fatty (change of) liver, not elsewhere classified; E87.1 Hypo-osmolality and hyponatremia; B19.20 Unspecified viral hepatitis C without hepatic coma; F10.239 Alcohol dependence with withdrawal, unspecified; F11.20 Opioid dependence, uncomplicated; Y90.5 Blood alcohol level of 100-119 mg/100 ml; K29.20 Alcoholic gastritis without bleeding; Z79.899 Other long term (current) drug therapy
CPT/HCPCS: 36415; 74177; 80048; 80076; 80307; 81001; 83690; 83735; 85025; 85027; 93005; 99285; J1170; J2060; J2405; J2560; J3411; J7120; Q9967

== ENCOUNTER → 2023-11-01 03:28 | Outpatient (BNV) | payer OTHER, SELFPAY | PROVIDERS: Emergency Provider Emergency Medicine; PCP Internal Medicine; Visit Provider Internal Medicine | DX: K85.20 Alcohol induced acute pancreatitis without necrosis or infection (principal); F10.939 Alcohol use, unspecified with withdrawal, unspecified | CPT/HCPCS: 99223; 99232; 99239; 99499 ==

== ENCOUNTER 2023-11-14 15:46 | Outpatient (REF) | payer OTHER, SELFPAY ==
[2023-11-14 17:57] LABS: Alanine Aminotransferase 31 U/L (0-40); Albumin Level 4.3 g/dL (3.5-5.0); Alkaline Phosphatase 113 U/L (39-117); Amylase 34 U/L (28-100); Aspartate Amino Transferase 23 U/L (5-37); Bilirubin Direct 0.2 mg/dL (0.0-0.5); Bilirubin Total 0.3 mg/dL (0.0-1.0); Lipase 24 U/L (8-78); Total Protein 8.2 g/dL (6.5-8.0)
[2023-11-14 18:27] LABS: HBc Num1 0.16 S/CO (0.00-0.79); HBsAGNum1 0.29 S/CO (0.00-0.99); HIV AB/AG Nonreactive (Nonreactive); HIV Num 1 0.05 S/CO (0.00-0.99); Hepatitis B Core Antibody Nonreactive (Nonreactive); Hepatitis B Surface Antigen Negative (Negative)
[2023-11-20 10:33] LABS: Hepatitis C Genotype 1a
== END 2023-11-14 15:47 | disposition home or self-care (01) ==
LOC: HO.HHCL 15:46
PROVIDERS: Internal Medicine; Visit Provider Family Medicine
DX: B18.2 Chronic viral hepatitis C (principal); Z87.19 Personal history of other diseases of the digestive system
CPT/HCPCS: 36415; 80076; 82150; 83690; 86704; 87340; 87389; 87902

== ENCOUNTER 2024-07-27 16:15 | Outpatient (REF) | payer OTHER, SELFPAY ==
[2024-07-27 17:47] LABS: Alanine Aminotransferase 32 U/L (0-40); Albumin Level 4.7 g/dL (3.5-5.0); Aspartate Amino Transferase 29 U/L (5-37); Bilirubin Direct 0.1 mg/dL (0.0-0.5); Bilirubin Total 0.3 mg/dL (0.0-1.0); Total Protein 7.5 g/dL (6.5-8.0)
[2024-07-27 18:20] LABS: Alkaline Phosphatase 75 U/L (39-117)
[2024-07-28 12:33] LABS: HCV Log PCR <1.18 NOT DETECTED Log IU/mL (NOT DETECTED); HepC Viral Load <15 NOT DETECTED IU/mL (NOT DETECTED)
== END 2024-07-27 16:16 | disposition home or self-care (01) ==
LOC: HO.HHCL 16:15
PROVIDERS: Visit Provider Family Medicine
DX: B18.2 Chronic viral hepatitis C (principal)
CPT/HCPCS: 36415; 80076; 87522

== ENCOUNTER 2024-11-15 13:11 | Inpatient (IN) | payer OTHER, SELFPAY ==
[2024-11-15 14:02] VITALS: BP 171/109; PULSE 125; RESP 22; TEMP 36.6; O2SAT 96; BMI 28.0
--- NOTE | 2024-11-15 14:02 | ED.GENADULT ---
HPI - General Adult General Chief complaint: Abdominal Pain Stated complaint: vomitting, fatigue, dehydration Time Seen by Provider: 11/15/24 16:02 Source: patient Mode of arrival: ambulatory Limitations: no limitations History of Present Illness ED Provider: DR. Martinez HPI narrative: 34-year-old male history of alcohol use presented with chest pain, abdominal pain, nausea, vomiting patient has been drinking for the past few days constantly last drink was this morning. Patient now feels chest pain is improving but still nauseous. Related Data Home Medications ?Medication ?Instructions ?Recorded ?Confirmed methadone 10 mg/mL oral concentrate 135 mg PO DAILY 09/16/22 11/01/23 Previous Rx's ?Medication ?Instructions ?Recorded acamprosate 333 mg tablet,delayed 666 mg (2 x 333 mg) PO TID 30 days 05/15/23 release #180 tabs thiamine mononitrate (vit B1) 100 100 mg PO DAILY 30 days #30 tabs 05/15/23 mg tablet folic acid 1 mg tablet 1 mg PO DAILY #30 tabs 11/05/23 oxycodone 5 mg tablet 5 mg PO Q8H PRN pain #12 tabs 11/05/23 Allergies Allergy/AdvReac Type Severity Reaction Status Date / Time No Known Allergies Allergy Verified 11/15/24 14:04 Review of Systems Review of Systems: All other systems are reviewed and are negative Constitutional: Reports as per HPI and Reports no additional constitutional complaints Eyes: Reports as per HPI and Reports no additional eye complaints Reports system reviewed and no additional complaints, except as documented Cardiovascular: Reports as per HPI and Reports no additional cardiovascular complaints Respiratory: Reports as per HPI and Reports no additional respiratory complaints Gastrointestinal: Reports as per HPI and Reports no additional gastrointestinal complaints Genitourinary: Reports no additional female genitourinary complaints Musculoskeletal: Reports no additional musculoskeletal complaints Skin/Breast: Reports system reviewed and no additional complaints, except as docu Psychiatric: Reports no additional psychiatric complaints Endocrine: Reports no additional endocrine complaints Hematologic/Lymphatic: Reports no additional hematologic/lymphatic complaints Allergic/Immunologic: Reports no additional allergic/immunologic complaints Reports system reviewed and no additional complaints, except as documented and Reports Abnormal speech present [facility] Past Medical History Medical History Fatty liver History of cocaine abuse ETOH abuse Social History Social History Household Members: Family Housing: House Do you presently have visiting nurse or other home services: No Alcohol intake: current Alcohol intake frequency: 3 or more drinks per day Alcohol type: hard liquor Comment: pt refuses high fall bed alarm and chair alarm Patient Tobacco Use Status: Never used Tobacco Smoked in Last 30 Days: No Use of substances other than those prescribed or required for medical reasons: No Substance Use Type: Other Advance Directives: No Advance Directives Information Provided: No Do you have a plan to hurt others: No Plan service: No Current occupational status: unemployed Physical Exam ED Vital Signs: Vital Signs - 24 hr 11/15/24 14:02 11/15/24 16:55 11/15/24 18:00 Temperature 97.9 F 98.1 F Pulse Rate 125 H 98 93 Respiratory Rate 22 H 18 17 Blood Pressure 171/109 H 172/88 H 123/83 Pulse Oximetry 96 96 95 Oxygen Delivery Method Room Air Room Air Room Air 11/15/24 20:17 11/15/24 22:29 11/16/24 00:38 Temperature 98.2 F 98 F 98.2 F Pulse Rate 83 90 87 Respiratory Rate 18 18 12 Blood Pressure 141/87 H 128/68 137/91 H Pulse Oximetry 95 96 94 Oxygen Delivery Method Room Air Room Air Room Air BMI result Body Mass Index 28.0 Vital signs have been reviewed and appear to be correct. Blood pressure elevated. Heart rate elevated,Respiratory rate Elevated, Temperature normal. Oxygen saturation normal. Appearance: Alert. Oriented X3. No acute distress. Head: Normal external exam. Normocephalic. Atraumatic. No Dorman signs noted. No raccoon eyes noted Eyes: PERRLA. EOMI. Conjunctiva and sclera normal. Eyelids normal. ENT: TM's Normal. Pharynx normal. Uvula midline. Moist mucous membranes. No trismus noted. No drooling noted. No muffled voice noted. Neck: Normal inspection. Neck supple. FROM. No adenopathy. Thyroid Normal. No meningeal signs. No neck mass noted. CVS: Normal heart rate and rhythm. Heart sound normal. No murmurs noted. Pulses normal throughout. Respiratory: No respiratory distress. Painless inspiration. Breath sounds normal. No wheezes/rales/rhonchi noted. Chest nontender. No accessory muscle usage noted or decreased air movement noted. Abdomen: Soft and nontender. Bowel sounds normal in all 4 quadrants. No distention noted. No organomegaly noted. No visible injury noted. Back: No CVA tenderness. Full range of motion noted. Skin: Skin warm and dry. Normal skin color. Normal skin turgor. No rashes/lesions/lacerations noted. Extremities: No lower extremity edema. Extremities exhibit normal range of motion. Extremities nontender. Neuro: Mental status: Normal attention, orientation, memory, and affect. Cranial nerves: Pupils are equal, round and reactive to light, EOMI, visual carreon are fall, face is symmetric, facial sensations are normal. Motor examination normal muscle tone, strength to 4 extremities. DTR are +2, planter's are flexor. Sensory exam; normal coordination, no ataxia, gait stable. Cerebellar exam: [id number] and [id number]-[id number] is normal. Extrapyramidal system: No tremors, no rigidity with normal facial expressions. Pronator drift not present Course Course Course Narrative: This is a Rapid Medical Examination (RME) performed by Bryan Billings PA-C in triage. Full HPI, ROS, assessment and treatment plan per primary provider in the Main ED. Hx: 34 yo M hx ethoh abuse and pancreatitis here for eval of nausea, vomiting, abdominal pain, chest pain, and fatigue x4 days. admits to etoh consumption x weeks, 15-20 nips of fireball. last consumed etoh this morning. Reports history of withdrawals however denies any withdrawal seizures. looking to speak with recovery as well. PE/vitals: slurred speech, appears intoxicated. Plan: labs, ekg Reevaluation(s) Reevaluation #1: Patient stable, VSS, signed out to Dr. Millan at the end of my shift. Time: 21:05 Reevaluation #2: Assumed care from previous provider after a detailed discussion regarding patient's case.? [id number] evaluation has taken place with no new change in management.? Patient is awaiting sober re-evaluation and final disposition. Time: 21:00 Reevaluation #3: Patient becoming agitated requiring additional sedation. He drinks approximately 20 nips of alcohol daily. Feels as though he is in withdrawal. His nausea improved after Haldol however, given his history alcohol withdrawal I fear that he will become more delirious and may start to have worsening withdrawal. We will admit to hospitalist on the phenobarbital protocol for alcohol withdrawal. Patient understands and agrees with plan for admission. Admitted in guarded condition. Time: 01:15 Medications Administered Discontinued Medications Generic Name Dose Route Start Last Admin Trade Name Freq PRN Reason Stop Dose Admin Al Hydroxide/Mg Hydroxide 30 ml 11/15/24 16:08 11/15/24 17:14 Magnesium Hydrox/Alum Hydrox 30 Ml Oral.Susp PO 11/15/24 16:09 30 ml ONCE ONE Administration Diazepam 5 mg 11/15/24 21:04 11/15/24 21:15 Diazepam 10 Mg/2 Ml Cartridge IVPUSH 11/15/24 21:05 5 mg STAT STA Administration Diphenhydramine HCl 50 mg 11/16/24 00:24 11/16/24 00:31 Diphenhydramine Hcl 50 Mg/Ml Vial IVPUSH 11/16/24 00:25 50 mg ONCE ONE Administration Famotidine 20 mg 11/15/24 16:08 11/15/24 17:15 Famotidine/Pf 20 Mg/2 Ml Vial IVPUSH 11/15/24 16:09 20 mg ONCE ONE Administration Haloperidol Lactate 5 mg 11/16/24 00:04 11/16/24 00:15 Haloperidol Lactate 5 Mg/Ml Vial IVPUSH 11/16/24 00:05 5 mg STAT STA Administration Lactated Ringer's 1,000 mls @ 999 mls/hr 11/15/24 16:15 11/15/24 18:22 Lr IV 11/15/24 17:15 Infused .Q1H1M DARIUS Infusion Lactated Ringer's 1,000 mls @ 999 mls/hr 11/15/24 18:45 11/15/24 20:45 Lr IV 11/15/24 19:45 Infused .Q1H1M DARIUS Infusion Ondansetron HCl 4 mg 11/15/24 16:07 11/15/24 17:14 Ondansetron Hcl 4 Mg/2 Ml Vial IVPUSH 11/15/24 16:08 4 mg ONCE ONE Administration Ondansetron HCl 4 mg 11/15/24 20:46 11/15/24 20:51 Ondansetron Hcl 4 Mg/2 Ml Vial IVPUSH 11/15/24 20:47 4 mg ONCE ONE Administration Phenobarbital Sodium 507 mg 11/16/24 00:30 11/16/24 00:31 Phenobarbital Sodium 130 Mg/Ml Im Once IM 11/16/24 00:31 507 mg ONCE ONE Administration Protocol Medical Decision Making Differential Diagnosis Differential Diagnoses: The differential diagnosis associated with the presentation includes ( ACS, alcoholic gastritis, AKA, dehydration, electrolyte derangement, severe anemia, alcohol withdrawal.) Admission/Observation Consideration of admission/observation: Escalation of care including admission/observation considered Lab Data MDM Lab Attestation statement: I reviewed the patient's lab results. 11/15/24 14:29 11/15/24 14:29 Labs: Lab Results 11/15/24 Range/Units 14:29 WBC 6.2 (4.8-10.8) X10*3/uL RBC 5.95 H D (4.60-5.80) X10*6/uL Hgb 17.2 D (14.0-18.0) g/dl Hct 48.4 (42.0-52.0) % MCV 81.3 (80.0-98.0) fL MCH 28.9 (27.0-33.0) pg MCHC 35.5 (31.0-36.0) g/dl RDW 14.4 (11.0-16.0) % Plt Count 283 D (160-400) X10*3/uL MPV 9.3 L (9.4-12.4) fL Immature Gran % (Auto) 0.2 (0.0-0.4) % Neut % (Auto) 61.4 (45-73) % Lymph % (Auto) 31.3 (20-40) % [place] % (Auto) 6.1 (2-11) % Eos % (Auto) 0.0 (0-4) % Baso % (Auto) 1.0 (0-2) % Lymph # (Auto) 2.0 (1.2-4.9) X10*3/uL [place] # (Auto) 0.4 (0.1-1.2) X10*3/uL Eos # (Auto) 0.0 (0.0-0.4) X10*3/uL Baso # (Auto) 0.1 (0.0-0.2) X10*3/uL Abs Immat Gran (auto) 0.01 (0.00-0.03) X10*3/uL Absolute Neuts (auto) 3.8 (2.0-8.3) x10*3/uL Absolute Nucleated RBC 0.000 (0.0-0.012) X10*3/uL Nucleated RBC % (auto) 0.0 (0.0-0.2) /100WBC Sodium 135 (135-145) mmol/L Potassium 3.7 (3.3-5.1) mmol/L Chloride 97 (96-108) mmol/L Carbon Dioxide 27 (22-29) mmol/L Anion Gap 15 (12-20) BUN 13 (9-16) mg/dL Creatinine 0.99 (0.5-1.4) mg/dL Estim Creat Clear Calc 134.6 Estimated GFR > 60 Random Glucose 199 H (60-115) mg/dL Calcium 8.9 (8.4-10.2) mg/dL Magnesium 2.4 (1.6-2.6) mg/dL Total Bilirubin 0.6 (0.0-1.0) mg/dL AST 76 H (5-37) U/L ALT 53 H (0-40) U/L Alkaline Phosphatase 93 (39-117) U/L Troponin I High Sens < 2.7 (<3.5-35.0) ng/L Total Protein 8.2 H (6.5-8.0) g/dL Albumin 4.7 (3.5-5.0) g/dL Lipase 62 (8-78) U/L Ethyl Alcohol 355 H* mg/dL Discharge Plan Discharge Clinical Impression: Alcohol intoxication, Acute alcoholic gastritis, Alcohol withdrawal Patient Disposition: Admitted As Inpatient Print Language: Pashto
--- NOTE | 2024-11-15 14:04 | ECG_ITS ---
Test Reason : CP Blood Pressure : */* mmHG Vent. Rate : 133 BPM Atrial Rate : 133 BPM P-R Int : 170 ms QRS Dur : 94 ms QT Int : 260 ms P-R-T Axes : 54 43 260 degrees QTcB Int : 386 ms Sinus tachycardia Possible Inferior infarct (cited on or before 22-Jun-2018) ST & T wave abnormality, consider anterolateral ischemia Abnormal ECG When compared with ECG of 04-Nov-2023 10:00, Questionable change in initial forces of Inferior leads Referred By: Lashon Billings Electronically Signed By: Chapin Chamorro
[2024-11-15 14:36] LABS: MANUAL DIFF FLAG NO
[2024-11-15 14:39] LABS: Hematocrit 48.4 % (42.0-52.0); Hemoglobin 17.2 g/dl (14.0-18.0); Imm Gran Abs Auto 0.01 X10*3/uL (0.00-0.03); Imm Gran Pct Auto 0.2 % (0.0-0.4); Lymphocytes Absolute Auto 2.0 X10*3/uL (1.2-4.9); Mean Corpuscular HGB Conc 35.5 g/dl (31.0-36.0); Mean Corpuscular Hemoglobin 28.9 pg (27.0-33.0); Mean Corpuscular Volume 81.3 fL (80.0-98.0); NRBC Abs Auto 0.000 X10*3/uL (0.0-0.012); NRBC Pct Auto 0.0 /100WBC (0.0-0.2); Platelet Count 283 X10*3/uL (160-400); Red Blood Count 5.95 X10*6/uL (4.60-5.80); White Blood Count 6.2 X10*3/uL (4.8-10.8)
[2024-11-15 14:53] LABS: Alanine Aminotransferase 53 U/L (0-40); Albumin Level 4.7 g/dL (3.5-5.0); Alkaline Phosphatase 93 U/L (39-117); Anion Gap 15 (12-20); Aspartate Amino Transferase 76 U/L (5-37); Blood Urea Nitrogen 13 mg/dL (9-16); Calcium 8.9 mg/dL (8.4-10.2); Carbon Dioxide 27 mmol/L (22-29); Chloride 97 mmol/L (96-108); Creatinine Clr Calc Pharmacy 134.6; Estimated Glomerular Filt Rate > 60; Lipase 62 U/L (8-78); Magnesium 2.4 mg/dL (1.6-2.6); Potassium 3.7 mmol/L (3.3-5.1); Sodium 135 mmol/L (135-145); Total Protein 8.2 g/dL (6.5-8.0)
[2024-11-15 15:01] LABS: Troponin-I High Sensitivity < 2.7 ng/L (<3.5-35.0)
[2024-11-15 16:55] VITALS: BP 172/88; PULSE 98; RESP 18; O2SAT 96
[2024-11-15] MEDS: Magnesium Hydrox/Alum Hydrox 30 ML ORAL.SUSP PO (17:14)
[2024-11-15] MEDS: Lactated Ringers 1,000 ML 999 ML IV ×2 (17:15→19:12)
[2024-11-15 18:00] VITALS: BP 123/83; PULSE 93; RESP 17; TEMP 36.7; O2SAT 95
[2024-11-15 20:17] VITALS: BP 141/87; PULSE 83; RESP 18; TEMP 36.8; O2SAT 95
[2024-11-15] MEDS: diazePAM 10 MG/2 ML CARTRIDGE 5 MG IVPUSH (21:15)
--- NOTE | 2024-11-15 21:15 | PC.NURSE ---
medicated per mar.
[2024-11-15 22:29] VITALS: BP 128/68; PULSE 90; RESP 18; TEMP 36.6; O2SAT 96
[2024-11-16] VITALS (10 sets, daily range): BP systolic 113–161; BP diastolic 79–104; PULSE 73–92; RESP 12–20; TEMP 36.7–37.1; O2SAT 92–98
--- NOTE | 2024-11-16 00:19 | PC.NURSE ---
pt medicated per mar.
[2024-11-16] MEDS: PHENobarbitaL sodium 130 MG/ML IM ONCE 507 MG IM (00:31)
--- NOTE | 2024-11-16 00:41 | PC.NURSE ---
pt changed over into hospital attire, medicated per mar .
--- NOTE | 2024-11-16 03:14 | PM.IMHP ---
History of Present Illness Date of Service: 11/16/24 Attending physician on admission: Timmy Pinto Chief Complaint: etoh Patient is a 34-year-old male with a past medical history significant for alcohol use disorder, history of cocaine use, history opioid use on methadone, and fatty liver disease, who presented to the ED due to chest pain, abdominal pain, nausea and vomiting. The patient reportedly had been drinking heavily, 20 nips per day for the past few days. He last consumed alcohol yesterday morning. He has a history of alcohol withdrawal but no seizures. He feels that he is going into alcohol withdrawal. Since arriving to the ED he reports that his chest pain is better however he still very nauseous. He denies any shortness of breath, cough, URI symptoms, for urinary symptoms. He does have some upper abdominal discomfort, feels this is related to vomiting. Review of Systems Constitutional: Constitutional: Denies body ache(s), Denies chills, Denies fatigue, Denies fever(s) and Reports headache(s) Eyes: Eyes: Denies change in vision ENT: Reports headache(s), Denies nasal discharge and Denies sore throat Cardiovascular: Cardiovascular: Reports chest pain, Denies rapid heart rate, Denies leg edema, Denies lightheadedness and Denies dyspnea Respiratory: Respiratory: Denies chest congestion, Denies cough, Denies dyspnea and Denies wheezing Gastrointestinal: Gastrointestinal: Reports abdominal pain, Reports nausea and Reports vomiting Genitourinary: Genitourinary: Denies dysuria and Denies urinary urgency Musculoskeletal: Musculoskeletal: Denies myalgias Integumentary/Breasts: Skin/Breast: Denies rash Neurologic: Denies confusion and Reports headache(s) Psychiatric: Psychiatric: Denies confusion Endocrine: Endocrine: Denies fatigue Hematologic/Lymphatic: Hematologic/Lymphatic: Denies easy bleeding and Denies easy bruising Allergic/Immunologic: Allergic/Immunologic: Denies wheezing PMFSH Medical History Fatty liver History of cocaine abuse ETOH abuse Functional capacity: independent ambulation Social History Household Members: Family Housing: House Do you presently have visiting nurse or other home services: No Alcohol intake: current Alcohol intake frequency: 3 or more drinks per day Alcohol type: hard liquor Comment: pt refuses high fall bed alarm and chair alarm Patient Tobacco Use Status: Never used Tobacco Smoked in Last 30 Days: No Use of substances other than those prescribed or required for medical reasons: No Substance Use Type: Other Advance Directives: No Advance Directives Information Provided: No Do you have a plan to hurt others: No Plan service: No Current occupational status: unemployed Narrative: History of opiate use, on methadone. Consuming 20 nips per day. Meds Allergies Allergy/AdvReac Type Severity Reaction Status Date / Time No Known Allergies Allergy Verified 11/15/24 14:04 Active Medications: Current Medications Acetaminophen (Acetaminophen 325 Mg Tablet) 650 mg PO Q6H PRN PRN Reason: Pain, Mild 1-3,fever,headache Calcium Carbonate (Calcium Carbonate 750 Mg Tab.Chew) 750 mg PO Q4H PRN PRN Reason: Heartburn Enoxaparin Sodium (Enoxaparin Sodium 40 Mg/0.4 Ml Syringe) 40 mg SUBCUT Q24H DARIUS Lactated Ringer's (Lr) 1,000 mls @ 100 mls/hr IVCONT .Q10H DARIUS Magnesium Hydroxide (Milk Of Magnesia 30 Ml Oral.Susp) 30 ml PO DAILY PRN PRN Reason: Constipation Melatonin (Melatonin 3 Mg Tablet) 6 mg PO BEDTIME PRN PRN Reason: Insomnia Ondansetron HCl (Ondansetron Hcl 4 Mg/2 Ml Vial) 4 mg IVPUSH Q8H PRN PRN Reason: Nausea and Vomiting Oxycodone HCl (Oxycodone Hcl Immed Release 5 Mg Tablet) 5 mg PO Q6H PRN PRN Reason: Pain, Severe (Pain Scale 7-10) Pharmacy Consult (Consult Rx Etoh Phenob Im/Po) 1 each MISCELLANE ONCE PRN; Protocol PRN Reason: Consult order Phenobarbital (Phenobarbital 30 Mg Tablet) 60 mg PO BID DARIUS; Protocol Stop: 11/17/24 21:01 Phenobarbital (Phenobarbital 30 Mg Tablet) 30 mg PO BID DARIUS; Protocol Stop: 11/19/24 21:01 Phenobarbital (Phenobarbital 30 Mg Tablet) 30 mg PO DAILY DARIUS; Protocol Stop: 11/21/24 09:01 Phenobarbital Sodium (Phenobarbital Sodium 130 Mg/Ml Vial Im Q3hx2) 380 mg IM Q3H DARIUS; Protocol Stop: 11/16/24 06:31 Sodium Chloride (0.9 % Sodium Chloride Flush 3 Ml Syringe) 3 ml IVFLUSH QSHIFT [facility] Tramadol HCl (Tramadol Hcl 50 Mg Tablet) 50 mg PO Q6H PRN PRN Reason: Pain, Moderate(Pain Scale 4-6) Home Medications ?Medication ?Instructions ?Recorded ?Confirmed ?Last Taken ?Type methadone 10 mg/mL oral concentrate 135 mg PO DAILY 09/16/22 11/01/23 10/31/23 History hydroxyzine HCl 10 mg tablet 10 mg PO Q6H PRN anxiety 11/16/24 11/16/24 Unknown History ondansetron 4 mg disintegrating 4 mg PO Q8H PRN nausea 11/16/24 11/16/24 Unknown History tablet sertraline 50 mg tablet 50 mg PO DAILY 11/16/24 11/16/24 Unknown History sofosbuvir 400 mg-velpatasvir 100 1 tab PO DAILY 11/16/24 11/16/24 Unknown History mg tablet Physical Exam Vital Signs and Narrative: Vital Signs: Last Vital Signs Temp 98.2 F 11/16/24 00:38 Pulse 87 11/16/24 00:38 Resp 12 11/16/24 00:38 BP 137/91 H 11/16/24 00:38 Pulse Ox 94 11/16/24 00:38 O2 Del Method Room Air 11/16/24 00:38 BMI result Body Mass Index 28.0 General: AOx3, no acute distress Resp: CTA bilaterally CVS: S1, S2, RRR GI: +BS, NT, no distention Skin: Warm, dry Neuro: Cranial nerves II-XII grossly intact bilaterally. Motor grossly intact bilaterally Extremities: No edema Psych: Appropriate affect Const: General: No confusion Orientation/consciousness: No confusion Neuro: General: No confusion Results Labs 11/16/24 04:19 11/16/24 04:19 Labs: Laboratory Results - last 24 hr 11/15/24 14:29 MCV 81.3 MCH 28.9 MCHC 35.5 RDW 14.4 Plt Count 283 D MPV 9.3 L Immature Gran % (Auto) 0.2 Neut % (Auto) 61.4 Lymph % (Auto) 31.3 [place] % (Auto) 6.1 Eos % (Auto) 0.0 Baso % (Auto) 1.0 Lymph # (Auto) 2.0 [place] # (Auto) 0.4 Eos # (Auto) 0.0 Baso # (Auto) 0.1 Abs Immat Gran (auto) 0.01 Absolute Neuts (auto) 3.8 Absolute Nucleated RBC 0.000 Nucleated RBC % (auto) 0.0 Anion Gap 15 Estim Creat Clear Calc 134.6 Estimated GFR > 60 Random Glucose 199 H Calcium 8.9 Magnesium 2.4 Total Bilirubin 0.6 AST 76 H ALT 53 H Alkaline Phosphatase 93 Troponin I High Sens < 2.7 Total Protein 8.2 H Albumin 4.7 Lipase 62 Ethyl Alcohol 355 H* Assessment and Plan (1) Alcohol intoxication: Status: Acute (2) Alcohol withdrawal: Status: Acute (3) Acute alcoholic gastritis: Status: Acute Plan Patient is a 34-year-old male with a past medical history significant for alcohol use disorder, history of cocaine use, history opioid use on methadone, and fatty liver disease, who presented to the ED due to chest pain, abdominal pain, nausea and vomiting. Alcohol intoxication/alcohol withdrawal/gastritis - alcohol level 355 on arrival - AST 76, ALT 53, alk-phos normal, lipase normal - troponin negative - EKG with sinus tachycardia, previous infarct seen - CIWA score elevated, phenobarbital initiated - CIWA scores every 4 hours - continue phenobarb - addiction med consult - folic acid, multivitamin, thiamine daily - seizure precautions - pantoprazole for gastritis - monitor BMP Polysubstance use - on methadone, we will need dose verified, [facility] Full code VTE prophylaxis: Lovenox Patient with acute alcohol intoxication, alcohol withdrawal and alcoholic gastritis, requiring admission for at least 2 midnight stay for monitored medication withdrawal. Quality Stroke Does the patient have a stroke diagnosis?: No VTE Prior VTE?: No VTE Risk Level:: Medical - moderate - high VTE Device Contraindication: Treatment Not Indicated VTE Drug Contraindication: N/A - Med Ordered
[2024-11-16] MEDS: PHENobarbitaL sodium 130 MG/ML VIAL IM Q3Hx2 380 MG IM ×2 (03:30→05:36)
[2024-11-16] MEDS: Lactated Ringers 1,000 ML 100 ML IVCONT ×3 (03:37→22:54)
--- NOTE | 2024-11-16 03:41 | PC.NURSE ---
medicated per mar.
[2024-11-16 04:47] LABS: Hematocrit 45.6 % (42.0-52.0); Hemoglobin 15.6 g/dl (14.0-18.0); Mean Corpuscular Volume 84.4 fL (80.0-98.0); Platelet Count 227 X10*3/uL (160-400); Red Blood Count 5.40 X10*6/uL (4.60-5.80)
[2024-11-16 04:59] LABS: Calcium 8.3 mg/dL (8.4-10.2); Chloride 100 mmol/L (96-108); Potassium 3.9 mmol/L (3.3-5.1); Sodium 138 mmol/L (135-145)
--- NOTE | 2024-11-16 05:45 | PC.NURSE ---
medicated per mar.
--- NOTE | 2024-11-16 08:58 | PC.NURSE ---
spoke w/ DELGADO Orozco at [facility] in [place] at this time. patient last received 160mg of methadone at facility on 11/12. pt provided w/ 3 take home bottles. pt last dosed w/ 160mg on 11/15 at home. methadone verification form filled out/faxed/placed in pt's chart. will administer medication when verified/able. pt otherwise in no apparent distress. vss and up to date. nsr on the cardiac care nurse. updated CIWA in the worklist. medication administered per provider order. pt otherwise on RA in no apparent distress - no sob/wob noted. respirations even/unlabored. seizure precautions in place for safety precautions. pending bed assignment. plan of care ongoing. call munoz placed within reach.
--- NOTE | 2024-11-16 09:19 | MHC.CM.PN ---
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
--- NOTE | 2024-11-16 09:20 | HE.PHANOTE ---
METHADONE CONFIRMATION FORM PATIENT TAKES 160MG FROM [facility]. PATIENT GOT 3 TAKE HOMES FROM 11/12. LAST DOSE 11/15
--- NOTE | 2024-11-16 09:22 | PHA.MEDREC ---
Addendum entered by Joana FlynnD 11/16/24 09:28: reviewed Original Note: Pharmacy Consult ? Medication Reconciliation Pharmacy has reviewed the medication reconciliation done by nursing. Spoke to Patient states he is not Taking Acamprosate rainer 333 mg ( has not started yet) Folic acid 1 mg, Ondansetron ODT 4 mg, Sertraline 50 mg, and Sofosbuvir-Velpatavir. Patient confirmed Methadone 160 mg daily from [facility] in [place], last dose was yesterday.
[2024-11-16] MEDS: methADONE HCl 20 MG/2 ML ORAL.CONC 160 MG PO (10:43)
--- NOTE | 2024-11-16 10:46 | PC.NURSE ---
methadone administered per provider order.
--- NOTE | 2024-11-16 12:35 | PC.NURSE ---
vss and up to date. nsr on the telemetry monitor. pt remains on RA w/o difficulty - no sob/wob noted. respirations even/unlabored. new bag of LR infusing @ 100mls/hr. pt pending bed assignment. seizure precautions in place. plan of care ongoing.
--- NOTE | 2024-11-16 15:42 | PM.EVENT ---
Event Note Date of Service: 11/16/24 Event Note: Patient already seen by hospitalist team this morning, seen and examined pain Seems more comfortable but still anxious and tremulous Physical exam and assessment and plan as per H and P note Time Spent With Patient Time: Total time managing care of this patient today ____ minutes.
--- NOTE | 2024-11-16 16:02 | PC.NURSE ---
pt notably hypertensive and anxious. hospitalist notified/aware. medication administered per provider order. effectiveness pending.
--- NOTE | 2024-11-16 17:01 | MHC.RECOVRN ---
Chart review completed. Eval to be completed in the AM.
--- NOTE | 2024-11-16 19:28 | PC.NURSE ---
assumed care of pt, pt sleeping, respirations even and unlabored, IV fluids running per MAR
--- NOTE | 2024-11-16 20:34 | PC.NURSE ---
pt medicated per MAR, daughter and mother at bedside. Pt ambulated with steady gate to bathroom.
[2024-11-17] VITALS (7 sets, daily range): BP systolic 119–133; BP diastolic 76–89; PULSE 80–93; RESP 16–20; TEMP 36.2–37; O2SAT 96–99; BMI 29.0
[2024-11-17 07:40] LABS: Anion Gap 11 (12-20); Blood Urea Nitrogen 8 mg/dL (9-16); Calcium 8.2 mg/dL (8.4-10.2); Carbon Dioxide 32 mmol/L (22-29); Chloride 95 mmol/L (96-108); Creatinine Clr Calc Pharmacy 167.1; Estimated Glomerular Filt Rate > 60; Potassium 3.6 mmol/L (3.3-5.1); Sodium 134 mmol/L (135-145)
[2024-11-17 07:50] LABS: Hematocrit 40.5 % (42.0-52.0); Hemoglobin 14.2 g/dl (14.0-18.0); Mean Corpuscular HGB Conc 35.1 g/dl (31.0-36.0); Mean Corpuscular Hemoglobin 29.2 pg (27.0-33.0); Mean Corpuscular Volume 83.3 fL (80.0-98.0); NRBC Abs Auto 0.000 X10*3/uL (0.0-0.012); NRBC Pct Auto 0.0 /100WBC (0.0-0.2); Red Blood Count 4.86 X10*6/uL (4.60-5.80); White Blood Count 6.7 X10*3/uL (4.8-10.8)
[2024-11-17 08:36] LABS: Platelet Count 126 X10*3/uL (160-400)
--- NOTE | 2024-11-17 08:49 | HO.PM.IMPN ---
Subjective Subjective Date of Service: 11/17/24 Interval History: alcohol withdrawal Review of Systems CIWA is 5 anxious /tremulous Review of Systems: Yes all other systems are reviewed and are negative Physical Exam Exam: Exam: General: AOx3, anxious and tremulous Resp: CTA bilaterally CVS: S1, S2, RRR GI: +BS, NT, no distention Skin: Warm, dry Neuro: Cranial nerves II-XII grossly intact bilaterally. Motor grossly intact bilaterally Extremities: No edema Psych: Appropriate affect Vital Signs: Vital Signs: Last Vital Signs Temp 97.6 F 11/17/24 07:38 Pulse 84 11/17/24 07:38 Resp 20 11/17/24 07:38 BP 127/78 11/17/24 07:38 Pulse Ox 96 11/17/24 07:38 O2 Del Method Room Air 11/17/24 07:38 BMI result Body Mass Index 29.0 Objective Data Active Medications Acetaminophen (Acetaminophen 325 Mg Tablet) 650 mg PO Q6H PRN PRN Reason: Pain, Mild 1-3,fever,headache Calcium Carbonate (Calcium Carbonate 750 Mg Tab.Chew) 750 mg PO Q4H PRN PRN Reason: Heartburn Clonidine HCl (Clonidine Hcl 0.1 Mg Tablet) 0.1 mg PO TID [facility]; Protocol Last Admin: 11/16/24 20:34 Dose: 0.1 mg Documented By: NATALIIA Enoxaparin Sodium (Enoxaparin Sodium 40 Mg/0.4 Ml Syringe) 40 mg SUBCUT Q24H [facility] Last Admin: 11/16/24 08:48 Dose: Not Given Documented By: SARAH Non-Admin Reason: Patient Refused Folic Acid (Folic Acid 1 Mg Tablet) 1 mg PO DAILY [facility] Stop: 11/19/24 08:59 Last Admin: 11/16/24 08:48 Dose: 1 mg Documented By: SARAH Lactated Ringer's (Lr) 1,000 mls @ 100 mls/hr IVCONT .Q10H [facility] Last Admin: 11/16/24 22:54 Dose: 100 mls/hr Documented By: NATALIIA Magnesium Hydroxide (Milk Of Magnesia 30 Ml Oral.Susp) 30 ml PO DAILY PRN PRN Reason: Constipation Melatonin (Melatonin 3 Mg Tablet) 6 mg PO BEDTIME PRN PRN Reason: Insomnia Methadone HCl (Methadone Hcl 20 Mg/2 Ml Oral.Conc) 160 mg PO DAILY [facility] Last Admin: 11/16/24 10:43 Dose: 160 mg Documented By: SARAH Co-signed By: FARAZ Multivitamins/Vitamin C (Multivitamin Tablet) 1 tab PO DAILY [facility] Stop: 11/19/24 08:59 Last Admin: 11/16/24 08:48 Dose: 1 tab Documented By: SARAH Ondansetron HCl (Ondansetron Hcl 4 Mg/2 Ml Vial) 4 mg IVPUSH Q8H PRN PRN Reason: Nausea and Vomiting Oxycodone HCl (Oxycodone Hcl Immed Release 5 Mg Tablet) 5 mg PO Q6H PRN PRN Reason: Pain, Severe (Pain Scale 7-10) Pantoprazole Sodium (Pantoprazole Sodium 40 Mg/10 Ml Vial) 40 mg IVPUSH DAILY@0630 [facility] Last Admin: 11/17/24 06:15 Dose: 40 mg Documented By: LESLY Pharmacy Consult (Consult Rx Etoh Phenob Im/Po) 1 each MISCELLANE ONCE PRN; Protocol PRN Reason: Consult order Phenobarbital (Phenobarbital 30 Mg Tablet) 60 mg PO BID [facility]; Protocol Stop: 11/17/24 21:01 Last Admin: 11/16/24 20:34 Dose: 60 mg Documented By: NATALIIA Phenobarbital (Phenobarbital 30 Mg Tablet) 30 mg PO BID [facility]; Protocol Stop: 11/19/24 21:01 Phenobarbital (Phenobarbital 30 Mg Tablet) 30 mg PO DAILY [facility]; Protocol Stop: 11/21/24 09:01 Sodium Chloride (0.9 % Sodium Chloride Flush 3 Ml Syringe) 3 ml IVFLUSH [facility] Last Admin: 11/17/24 01:02 Dose: Not Given Documented By: LESLY Non-Admin Reason: IV Running Thiamine HCl (Thiamine Hcl 100 Mg Tablet) 100 mg PO DAILY [facility] Stop: 11/19/24 08:59 Last Admin: 11/16/24 08:48 Dose: 100 mg Documented By: SARAH Tramadol HCl (Tramadol Hcl 50 Mg Tablet) 50 mg PO Q6H PRN PRN Reason: Pain, Moderate(Pain Scale 4-6) Labs 11/17/24 06:57 11/17/24 06:57 Labs: Laboratory Results - last 24 hr 11/16/24 11/17/24 09:59 06:57 MCV 83.3 MCH 29.2 MCHC 35.1 RDW 13.5 Plt Count 126 L D MPV 9.7 Absolute Nucleated RBC 0.000 Nucleated RBC % (auto) 0.0 Anion Gap 11 L Estim Creat Clear Calc 167.1 Estimated GFR > 60 Random Glucose 82 Calcium 8.2 L Urine Color Dark Yellow Urine Appearance Clear Urine pH 6.5 Ur Specific [place] >= 1.030 H Urine Protein Trace Urine Glucose (UA) Negative Urine Ketones Negative Urine Blood Negative Urine Nitrite Negative Ur Leukocyte Esterase Negative Assessment and Plan (1) Alcohol withdrawal: Status: Acute Plan 34-year-old male with a past medical history significant for alcohol use disorder, history of cocaine use, history opioid use on methadone, and fatty liver disease, who presented to the ED due to chest pain, abdominal pain, nausea and vomiting. Alcohol intoxication/alcohol withdrawal/gastritis mild eelvated lfts,alk-phos normal, lipase normal troponin negative,EKG with sinus tachycardia, previous infarct seen - CIWA score elevated plan: phenobarbital extra dosing im added , continue phenobarb protocol, CIWA scores every 4 hours,folic acid, multivitamin, thiamine daily addiction med consult pantoprazole for gastritis monitor BMP Polysubstance use on methadone, we will need dose verified, [facility] Full code VTE prophylaxis: Lovenox Patient with acute alcohol intoxication, alcohol withdrawal and alcoholic gastritis-for monitored medication withdrawal-still withdrawaing -need extra im phenobarbital .need close ciwa monitering Quality Stroke Does the patient have a stroke diagnosis?: No VTE Prior VTE?: No VTE Risk Level:: Medical - moderate - high VTE Device Contraindication: Treatment Not Indicated VTE Drug Contraindication: N/A - Med Ordered
[2024-11-17] MEDS: methADONE HCl 20 MG/2 ML ORAL.CONC 160 MG PO (09:11)
[2024-11-17] MEDS: Lactated Ringers 1,000 ML 100 ML IVCONT ×2 (09:12→19:16)
[2024-11-17] MEDS: 0.9 % Sodium Chloride Flush 3 ML SYRINGE IVFLUSH ×3 (09:15→20:27)
--- NOTE | 2024-11-17 11:32 | MHC.CM.PN ---
EMR reviewed and per MD rounds, pt is not medically cleared for discharge due to management of ETOH withdrawal.
--- NOTE | 2024-11-17 15:54 | MHC.RECOVRN ---
TW met with the patient in 470 to discuss current alcohol use and concerns related to increased risk of alcohol use and related problems.? On approach pt was laying in bed, watching TV, in no apparent distress. Respirations even and unlabored. Pt was agreeable to meeting with TW and reports feeling weak and tired but states overall is feeling ?OK?. Pt reports he is able to hold down food and fluids without nausea or vomiting. He denies other withdrawal symptoms at this time.? Pt reports receiving methadone, 160mg at [facility] in [place] for the last 3 years. He reports he no longer uses substances other than alcohol, however, reports his alcohol consumption has increased ?pretty drastically? over the past few months. He states he has been trying to cut down on his own with minimal effect.? Pt states he started having just a few nips of fireball daily, after work, however, one day ?I woke up hungover, needed a shot to go to work, and then kept drinking throughout the day. It?s just getting worse?.? Pt states on average he drinks about 20 nips of Fireball daily. He states he has attended programs at [facility], [facility], [facility], and [facility]. In addition, he reports having 4 ? years of sobriety in the past but states he ?got with a girl who was using? and returned to use himself, including heroin, cocaine, and alcohol.? Pt states he is anxious at baseline and alcohol helps manage symptoms. He also reports anxiety, life stressors and ?living with mom? as precipitating factors of his continued alcohol use.?Pt reports attending meetings or utilizing a resource recovery specialist is difficult due to his anxiety but states he is currently looking to secure a new therapist to assist in developing improved coping skills. Pt educated on the use of online meetings and other avenues of recovery. Discussed how alcohol use has impacted health, including negative impact on mental health and overall physical well being. Discussed risk and reduction strategies including drinking below the recommended limit and not combining substances. Provided pt with written resources including information on inpatient and outpatient treatment, YOLANDA, harm reduction and recovery coaching.?? Pt declines intervention, YOLANDA, or outpatient appt for treatment related to AUD at this time. Pt was provided with TW?s contact information if questions or concerns arise. Pt denies further questions or concerns at this time.?
[2024-11-18] VITALS: BP 105/60; PULSE 77; RESP 20; TEMP 36.8; O2SAT 95
[2024-11-18 03:50] VITALS: BP 121/74; PULSE 72; RESP 20; TEMP 36.7; O2SAT 96
[2024-11-18] MEDS: Lactated Ringers 1,000 ML 100 ML IVCONT (04:51)
[2024-11-18 06:21] LABS: Hematocrit 33.5 % (42.0-52.0); Hemoglobin 11.4 g/dl (14.0-18.0); Mean Corpuscular HGB Conc 34.0 g/dl (31.0-36.0); Mean Corpuscular Hemoglobin 28.9 pg (27.0-33.0); Mean Corpuscular Volume 84.8 fL (80.0-98.0); NRBC Abs Auto 0.000 X10*3/uL (0.0-0.012); NRBC Pct Auto 0.0 /100WBC (0.0-0.2); Platelet Count 100 X10*3/uL (160-400); Red Blood Count 3.95 X10*6/uL (4.60-5.80); White Blood Count 5.6 X10*3/uL (4.8-10.8)
[2024-11-18 06:37] LABS: Alanine Aminotransferase 36 U/L (0-40); Albumin Level 3.0 g/dL (3.5-5.0); Alkaline Phosphatase 75 U/L (39-117); Anion Gap 8 (12-20); Aspartate Amino Transferase 67 U/L (5-37); Blood Urea Nitrogen 7 mg/dL (9-16); Calcium 7.9 mg/dL (8.4-10.2); Carbon Dioxide 31 mmol/L (22-29); Chloride 99 mmol/L (96-108); Creatinine Clr Calc Pharmacy 196.1; Estimated Glomerular Filt Rate > 60; Potassium 3.0 mmol/L (3.3-5.1); Sodium 135 mmol/L (135-145); Total Protein 5.5 g/dL (6.5-8.0)
[2024-11-18 07:15] VITALS: BP 121/74; PULSE 67; RESP 17; TEMP 36.8; O2SAT 98
[2024-11-18] MEDS: 0.9 % Sodium Chloride Flush 3 ML SYRINGE IVFLUSH (07:26)
[2024-11-18] MEDS: methADONE HCl 20 MG/2 ML ORAL.CONC 160 MG PO (07:27)
[2024-11-18] MEDS: Potassium Chloride ER 20 MEQ TAB.ER.PRT 40 MEQ PO (08:55)
--- NOTE | 2024-11-18 09:58 | P.DS_ITS ---
DS: Providers Provider Date of Service: 11/18/24 Date of admission: 11/16/24 03:14 Date of discharge: 11/18/24 Primary care physician: Tod Dow MD Consults: 11/16/24 03:11 Addiction Medicine Provider Routine Consulting Provider: Addiction Covering Reason for consultation: etoh Has provider been notified: No DS: Diagnosis Discharge Diagnosis (1) Alcohol withdrawal: Status: Acute DS: Summary Hospital Course Hospital Course: from initial hpi: 34-year-old male with a past medical history significant for alcohol use disorder, history of cocaine use, history opioid use on methadone, and fatty liver disease, who presented to the ED due to chest pain, abdominal pain, nausea and vomiting. The patient reportedly had been drinking heavily, 20 nips per day for the past few days. He last consumed alcohol yesterday morning. He has a history of alcohol withdrawal but no seizures. He feels that he is going into alcohol withdrawal. Since arriving to the ED he reports that his chest pain is better however he still very nauseous. He denies any shortness of breath, cough, URI symptoms, for urinary symptoms. He does have some upper abdominal discomfort, feels this is related to vomiting. hospital course: Patient was admitted for alcohol dependence with acute withdrawal. Was treated with phenobarbital protocol, vitamins and withdrawal resolved. Was seen by Addiction team provided patient with education and information on outpatient services. For polysubstance dependence was continued on methadone. Patient's symptoms resolved and he will be discharged home. Time Attestation Discharge Coordination Time (in mins): 35 Quality: Safe Use of Opioids Does Pt have an Active Cancer Diagnosis on the Problem List?: No Quality: Stroke Does the patient have a stroke diagnosis?: No Physical Exam Exam: Exam: General: AO X 3, no acute distress Resp: CTA bilateral, no accessory muscles used CVS: S1,S2,RRR GI: soft, non tender, non distended Neuro: motor grossly intact, alert Psych: appropriate affect, appropriate insight Vital Signs: Vital Signs: Last Vital Signs Temp 98.2 F 11/18/24 07:15 Pulse 67 11/18/24 07:15 Resp 17 11/18/24 07:15 BP 121/74 11/18/24 07:15 Pulse Ox 98 11/18/24 07:15 O2 Del Method Room Air 11/18/24 07:15 BMI result Body Mass Index 29.0 DS: Data Data Completed and Pending Completed studies during hospitalization [Text1]: Procedures Detoxification Services for Substance Abuse Treatment (11/01/23) Labs on day of discharge: Laboratory Results - last 24 hr 11/18/24 05:43 WBC 5.6 RBC 3.95 L Hgb 11.4 L Hct 33.5 L MCV 84.8 MCH 28.9 MCHC 34.0 RDW 13.6 Plt Count 100 L MPV 9.8 Absolute Nucleated RBC 0.000 Nucleated RBC % (auto) 0.0 Sodium 135 Potassium 3.0 L Chloride 99 Carbon Dioxide 31 H Anion Gap 8 L BUN 7 L Creatinine 0.69 Estim Creat Clear Calc 196.1 Estimated GFR > 60 Random Glucose 115 Calcium 7.9 L Total Bilirubin 0.8 AST 67 H ALT 36 Alkaline Phosphatase 75 Total Protein 5.5 L Albumin 3.0 L Discharge Plan Discharge Anticipated Discharge Date/Time: 11/18/24 09:56 Patient Disposition: Home, Self-Care Discharge Diagnosis: etoh withdrawal Referrals: Tod Darling MD [Primary Care Provider, Medical] - 1 Week Discharge Medications: Continued acamprosate 333 mg Tablet,Delayed Release (Dr/Ec) 666 mg PO TID 30 Days Qty: 180 0RF thiamine mononitrate (vit B1) 100 mg Tablet 100 mg PO DAILY 30 Days Qty: 30 0RF hydroxyzine HCl 10 mg tablet 10 mg PO Q6H PRN (Reason: anxiety) methadone 10 mg/mL Concentrate 160 mg PO DAILY Discharge Orders: Discharge Order (Routine); Ordered 11/18/24 Ordered By: Jude Call Diet: Advance to usual diet Activity on Discharge: As tolerated Stand Alone Forms: Patient Portal Discharge page, Work/School Release Print Language: Kinyarwanda Care Plan Goals: recovery Health Concerns: etoh Plan of Treatment: avoid etoh Assessment: see above
--- NOTE | 2024-11-18 10:27 | MHC.CM.PN ---
PT MEDICALLY CLEARED FOR DC HOME SELF CARE, PT TO ARRANGE PRIVATE TRANSPORT.
== END 2024-11-18 10:54 | disposition home or self-care (01) | DRG 241 ==
LOC: HO.ED 11-16 02:58 → HO.EDOVER 11-16 03:22 → HO.IMC 11-16 22:46
PROVIDERS: Internal Medicine; Physician Assistant Medical; Admitting Provider Physician Assistant; Emergency Provider Emergency Medicine; PCP Internal Medicine; Visit Provider Internal Medicine
DX: K29.20 Alcoholic gastritis without bleeding (principal); F10.229 Alcohol dependence with intoxication, unspecified; F11.20 Opioid dependence, uncomplicated; Y90.8 Blood alcohol level of 240 mg/100 ml or more; F10.239 Alcohol dependence with withdrawal, unspecified; Z79.899 Other long term (current) drug therapy
CPT/HCPCS: 36415; 80048; 80053; 80307; 81003; 83690; 83735; 84484; 85025; 85027; 93005; 99285; J1200; J1308; J1630; J2405; J2470; J2560; J3360; J7120; S9485

== ENCOUNTER → 2024-11-15 14:04 | Outpatient (BNV) | payer OTHER, SELFPAY | PROVIDERS: Admitting Provider Physician Assistant; Emergency Provider Emergency Medicine; PCP Internal Medicine; Visit Provider Internal Medicine Cardiovascular Disease | DX: R00.0 Tachycardia, unspecified (principal) | CPT/HCPCS: 93010 ==

== ENCOUNTER → 2024-11-16 03:14 | Outpatient (BNV) | payer OTHER, SELFPAY | PROVIDERS: Admitting Provider Physician Assistant; Emergency Provider Emergency Medicine; PCP Internal Medicine; Visit Provider Internal Medicine | DX: F10.939 Alcohol use, unspecified with withdrawal, unspecified (principal) | CPT/HCPCS: 99222; 99231; 99239; 99499 ==